=== PATIENT | female | born 1960 | race African-American/Black ===

== ENCOUNTER 2017-02-20 18:15 | Emergency (ER) | payer MEDICARE, OTHER ==
[2017-02-20 18:21] VITALS: BP 136/71; PULSE 70; TEMP 98; BMI 28.7
[2017-02-20] MEDS ORDERED: OXYCODONE/APAP 5/325MG COMBO TABLET PO ONE (18:29)
--- NOTE | 2017-02-20 18:36 | PDOC ---
History of Present Illness - General Chief Complaint: Injury Stated Complaint: RT ANKLE INJURY Time Seen by Provider: 02/20/17 18:29 History Source: Patient Exam Limitations: No Limitations - History of Present Illness Initial Comments: 02/20/17 21:31 My Chief Complaint: fall, rt. ankle pain with swelling, left hip pain History of present illness: Patient is a 56-year-old female with a history of [id number] diabetes, htn, Cardiac d/o, CVA 1999 and asthma. Pt. reports falling on uneven sidewalk twisting her right ankle and falling unto her left hip. She has deformity to her right bilateral ankle and tenderness to her left hip. Patient denies hitting her head or any other injuries. She denies any numbness of her right ankle or foot or leg. Patient has not been able to bear weight on her right foot. Family tried her with crutches was unable to ambulate with crutches. Patient reports that pain currently as a 10 out of 10 sharp in her right ankle and left hip with palpation only. 02/20/17 21:34 02/20/17 21:36 02/20/17 22:28 Occurred: reports: just prior to arrival Severity: reports: severe (rt. ankle) Pain Location: reports: lower extremity (rt. ankle), pelvis (left hip,) Method of Injury: Yes: fall Modifying Factors: improves with: None Loss of Consciousness: no loss of consciousness Associated Symptoms (Fall): trouble walking (cannot ambulate ) Past History - Past Medical History Allergies/Adverse Reactions: Allergies Allergy/AdvReac Type Severity Reaction Status Date / Time No Known Allergies Allergy Verified 02/20/17 18:16 Home Medications: Ambulatory Orders Aspirin [ASA -] 81 mg PO DAILY 03/14/14 Carvedilol [Coreg] 80 mg PO DAILY 03/14/14 Lisinopril [Prinivil -] 20 mg PO DAILY 10/13/14 Rosuvastatin Calcium [Crestor] 20 mg PO DAILY 10/13/14 Cetirizine HCl [Zyrtec -] 10 mg PO DAILY 01/02/16 Gabapentin 300 mg PO TID 01/02/16 Glipizide [Glipizide ER] 5 mg PO TID 01/02/16 Montelukast Na [Singulair -] 10 mg PO HS 01/02/16 Multivitamin [Poly-Vitamin] 1 each PO DAILY 01/02/16 Omeprazole [Prilosec] 40 mg PO DAILY 01/02/16 Meclizine HCl [Antivert -] 25 mg PO TID #30 tablet 01/03/16 Oxycodone HCl/Acetaminophen [Percocet 5-325 mg Tablet] 1 tab PO Q6H PRN #13 tablet MDD 4 02/20/17 Asthma: Yes Cardiac Disorders: Yes CVA: Yes (1999) Diabetes: Yes (NIDDM) HTN: Yes - Surgical History Cardiac Surgery: Yes (CATH WITH STENTS) - Immunization History Immunization Up to Date: Yes - Psycho/Social/Smoking Cessation Hx Anxiety: No Suicidal Ideation: No Smoking History: Never smoked Have you smoked in the past 12 months: No Information on smoking cessation initiated: No Hx Alcohol Use: No Drug/Substance Use Hx: No Substance Use Type: None Review of Systems - Review of Systems Able to Perform ROS?: Yes Constitutional: No: Symptoms Reported HEENTM: No: Symptoms Reported Respiratory: No: Symptoms reported Cardiac (ROS): No: Symptoms Reported ABD/GI: No: Symptoms Reported Musculoskeletal: Yes: Joint Pain (rt. ankle b/l, left hip tenderness), Joint Swelling (rt. ankle b/l, rt. dorsal foot ) Integumentary: No: Symptoms Reported Neurological: No: Symptoms reported *Physical Exam - Vital Signs Last Vital Signs Temp Pulse Resp BP Pulse Ox 98.0 F 70 18 136/71 100 02/20/17 18:18 02/20/17 18:18 02/20/17 18:18 02/20/17 18:18 02/20/17 18:18 - Physical Exam General Appearance: Yes: Appropriately Dressed Neck: negative: Tender, Decreased range of motion, Lymphadenopathy (R), Lymphadenopathy (L), Rigidity, Tender lateral, Tender midline Respiratory/Chest: positive: Lungs Clear, Normal Breath Sounds. negative: Chest Tender, Respiratory Distress Cardiovascular: positive: Regular Rhythm, Regular Rate, S1, S2 Vascular Pulses: Dorsalis-Pedis (R): 4+ Musculoskeletal: positive: Normal Inspection, Other (left hip tenderness). negative: CVA Tenderness, CVA Tenderness (R), CVA Tenderness (L), Decreased Range of Motion, Vertebral Tenderness Extremity: positive: Normal Capillary Refill, Tender (rt. ankle lateral and medially ), Swelling (right lateral/medial ankle, dorsal foot ) Integumentary: positive: Normal Color, Swelling (rt.dorsal foot/ rt. ankle b/l ) Neurologic: positive: Alert, Normal Response, Respond to painful stimul (b/l lower extremities, rt. foot/ankle ), Responsive. negative: Sensory Deficit ( rt. ankle/foot ) Deep Tendon Reflexes: Ankle (R): 3+ (no induration ) Procedures - Consent Consent obtained: From Patient - Splinting Splint Location: Right: Foot, Ankle Pre-Proc Neuro Vasc Exam: normal Splint Type: Yes: Sugar Tong (rt. ), Posterior (rt. ) Post-Proc Neuro Vasc Exam: normal Hayder Bandage: 4" Complications: No Post splint xray: No Progress: 02/20/17 22:29 crutches given Medical Decision Making - Medical Decision Making 02/20/17 21:36 Pt. reports falling on uneven sidewalk twisting her right ankle and falling unto her left hip. She has deformity to her right bilateral ankle and tenderness to her left hip. Patient denies hitting her head or any other injuries. She denies numbness of her right ankle or foot or leg. Patient has not been able to bear weight on her right foot. Family tried her with crutches was unable to ambulate with crutches. Patient reports that pain currently as a 10 out of 10 sharp in her right ankle and left hip with palpation only. Fall R/O fracture rt. ankle/foot R/O fracture left hip PLAN: percocet 5mg/325 mg po now than every 6 hrs prn pain # 14 xray left hip no fracture per Dr. Gill xray right ankle foot fracture through the lateral malleolus as well as a nondisplaced fracture through the medial malleolus. Extensive soft tissue swelling is noted about the ankle per Dr. Gill Ortho consult said to put on a posterior and sugar tong orthoglass splint and have patient follow-up with him in office next week Right lower extremity posterior splint and sugar tong splint applied or with Ortho-Glass Is able to ambulate on crutches after with instructions 02/20/17 22:24 02/20/17 22:29 02/20/17 22:29 *DC/Admit/Observation/Transfer Diagnosis at time of Disposition: Hip pain, left Bimalleolar fracture of right ankle Qualifiers: Encounter type: initial encounter Fracture type: closed Qualified Code(s): S82.841A - Displaced bimalleolar fracture of right lower leg, initial encounter for closed fracture Fall Qualifiers: Encounter type: initial encounter Qualified Code(s): W19.XXXA - Unspecified fall, initial encounter - Discharge Dispostion Disposition: HOME Condition at time of disposition: Stable - Prescriptions Prescriptions: Oxycodone HCl/Acetaminophen [Percocet 5-325 mg Tablet] 1 tab PO Q6H PRN #13 tablet MDD 4 PRN Reason: Severe Pain - Referrals Referrals: Erin Richard [Primary Care Provider] - Srikanth Parikh MD [Staff Physician] - - Patient Instructions Additional Instructions: Follow up with orthopedist on 02/24/17, call at 8am tell them that Dr. Parikh recommended follow up there ELEVATE RIGHT LEG APPLY ICE EVERY 2 HOURS WHILE AWAKE TODAY AND TOMORROW DO NOT REMOVE ORTHOGLASS SPLINT AND USE CRUTCHES FOR AMBULATION, DO NOT PUT WEIGHT ON RT FOOT RETURN TO EMERGENCY ROOM IF ANY NUMBNESS OF RIGHT LEG, FOOT, ANKLE PATIENT VOICED UNDERSTANDING OF DISCHARGE INSTRUCTIONS AND ALL QUESTIONS WERE ANSWERED
== END 2017-02-20 22:26 | disposition home or self-care (01) ==
LOC: JERFT 18:15
PROC: 2W3LX1Z Immobilization of Right Lower Extremity using Splint (ICD-10-PCS; principal; 2017-02-20)
DX: S82.841A Displaced bimalleolar fracture of right lower leg, initial encounter for closed fracture (principal); W18.39XA Other fall on same level, initial encounter; Y93.01 Activity, walking, marching and hiking; Y92.480 Sidewalk as the place of occurrence of the external cause; Y99.8 Other external cause status; I25.10 Atherosclerotic heart disease of native coronary artery without angina pectoris; I10 Essential (primary) hypertension; Z95.5 Presence of coronary angioplasty implant and graft; E11.9 Type 2 diabetes mellitus without complications; Z79.84 Long term (current) use of oral hypoglycemic drugs; J45.909 Unspecified asthma, uncomplicated; Z86.73 Personal history of transient ischemic attack (TIA), and cerebral infarction without residual deficits
CPT/HCPCS: 29515; 73523-TC; 73590-TC-RT; 73610-TC-RT; 73630-TC-RT; 99281-25

== ENCOUNTER 2017-03-19 08:24 | Day surgery (SDC) | payer MEDICARE, OTHER ==
[2017-03-09 13:08] VITALS: BMI 28.9
[2017-03-19] MEDS ORDERED: ROPIVACAINE HCL 0.5% 30ML VIAL ONE (11:22)
[2017-03-19] MEDS ORDERED: MIDAZOLAM HCL 2 MG/2 ML SINGLE DOSE VIAL ONE ×2 (11:22→12:21)
[2017-03-19] MEDS ORDERED: ceFAZolin SODIUM 1 GM VIAL ONE (12:23)
[2017-03-19] MEDS ORDERED: PROPOFOL 20 ML ONE ×3 (12:33)
[2017-03-19] MEDS ORDERED: LIDOCAINE HCL 1%, 10 MG/ML (20ML VIAL) ONE (12:47)
[2017-03-19] MEDS ORDERED: ONDANSETRON 4 MG/2 ML VIAL IVPUSH PRN (14:19)
[2017-03-19] MEDS ORDERED: oxyCODONE HCL 5 MG TABLET PO PRN (14:19)
--- NOTE | 2017-03-19 15:01 | OP ---
DATE OF OPERATION: 03/19/2017 PREOPERATIVE DIAGNOSIS: Right unstable ankle fracture. POSTOPERATIVE DIAGNOSIS: Right unstable ankle fracture. PROCEDURE: Right ankle open reduction and internal fixation. SURGEON: Srikanth Parikh MD STATISTICS TUTOR: HAI Nguyen, whose skillful assistance was necessary for the safe and timely performance of this procedure. Ms. Monsivais was able to help provide limb positioning, retraction, assist in fracture reduction as well as fracture fixation. This was all while the surgical dental assistant was providing the hardware necessary for completing the case, as well as manipulating instruments. IMPLANTS: Arthrex distal fibular plate with associated 3.5-mm locking as well as cortical screws as well as 2.7-mm locking screws. One Arthrex TightRope as well. ANESTHESIA TYPE: Regional plus sedation. TOURNIQUET TIME: 56 minutes. POSTOPERATIVE CONDITION: Stable. INDICATIONS: This is a pleasant 56-year-old female who suffered injury to her right ankle. She was found to have an unstable ankle fracture in the office. Treatment options including nonoperative management were discussed. We discussed that nonoperative management is not recommended in this case as the fracture is unstable, mainly due to posttraumatic arthrosis. Alternatively, we discussed operative management. We discussed risks including bleeding, infection, neurovascular injury, need for further surgery, postoperative pain and stiffness, nonunion, malunion, hardware failure cutout. We discussed there is still a chance for posttraumatic arthrosis but it is much less with an anatomic reduction. We reviewed medical risks such as heart attack, stroke, DVT, PE, and . We discussed the postoperative recovery and postoperative limitations. I addressed all the patient's questions. She voiced understanding and elected to proceed. PROCEDURE: The patient was brought to the operating room, where she was placed supine on the operating room stable. She had been given a preoperative block in the holding area. The right lower extremity was then prepped and draped in the usual sterile fashion. A preoperative dose of antibiotics was given and the usual timeout procedure was performed. At this point the limb was exsanguinated, tourniquet was inflated to 250 mmHg. The area of the incision was then injected with 10 mL of 1% lidocaine. The incision was then carried down through skin and subcutaneous tissue. Blunt spreading was used to expose the bone. The fracture site was now identified. Any callus which had formed was debrided. The fracture was mobilized from the soft tissue. A reduction clamp was applied; however, the reduction clamp started to crack through the cortex of the bone. A decision was made to use the plate to reduce the fracture. The plate was affixed to the distal fragment. This was done using 2.7 locking screws. The plate was then reduced up to the shaft proximally and this was affixed using combination of locking and nonlocking screws, utilizing a 4-0 cancellous screw for the 1st screw plate down followed by locking screws. At this point the entire construct was examined both fluoroscopically and visually, and both fracture reduction and hardware placement were satisfactory. There was, however, persistent widening of the mortise. Given the widening of the mortise, it was decided to perform syndesmotic fixation. The 4-0 cancellous screw was now removed. The 2.7-mm drill was now passed through the plate, through the fibula, and then through the tibia, emerging anteromedially. The drill was now withdrawn. The TightRope device was now passed and then toggled onto the medial cortex. It was then tightened down, securing it along the plate as well. External rotation stress performed after TightRope fixation demonstrated the mortise was now stable. The wound was irrigated at this point. The deep tissues were approximated using 0 Vicryl. The subcutaneous tissue was approximated using 2-0 Vicryl. The skin was closed using 2-0 nylon vertical mattress sutures. Sterile dressings were placed. The tourniquet was let down at 56 minutes. The patient was transferred to the recovery room in stable condition. Dorina FAROOQ/[id number]
[2017-03-19] MEDS ORDERED: oxyCODONE HCL 5 MG TABLET ONE (16:51)
[2017-03-19 19:53] VITALS: BP 124/74; PULSE 78; TEMP 98.1
== END 2017-03-19 18:20 | disposition home or self-care (01) ==
LOC: FASU 08:24
PROVIDERS: ATTEND Orthopaedic Surgery Sports Medicine
PROC: 0QSG04Z Reposition Right Tibia with Internal Fixation Device, Open Approach (ICD-10-PCS; principal; 2017-03-19 12:40)
DX: S82.841A Displaced bimalleolar fracture of right lower leg, initial encounter for closed fracture (principal); X58.XXXA Exposure to other specified factors, initial encounter; Y93.9 Activity, unspecified; Y92.9 Unspecified place or not applicable
CPT/HCPCS: 73610-TC-RT; 76001-TC; 94760

== ENCOUNTER 2017-04-21 09:50 | Inpatient (IN) | payer MEDICARE, OTHER ==
--- NOTE | 2017-04-21 10:00 | PDOC ---
History of Present Illness <Juan Dwyer - Last Filed: 04/21/17 14:42> - General History Source: Patient Exam Limitations: No Limitations - History of Present Illness Initial Comments: 04/21/17 11:03 The patient is a 56 year old female with a PMHx of right ankle ORIF (03/19), CVA , CHF, NIDDM, GERD, HTN, hypercholesterolemia, asthma who presents to the ED with left groin and flank pain for 2 days. The patient states the pain radiates down her left thigh. She reports the pain is constant and sharp in nature. She reports the pain is exacerbated by breathing and moving. She took codeine today that was prescribed for her right ankle ORIF to relieve her pain with minimal relief. She denies similar symptoms before today. She denies chest pain, SOB, palpitations. She denies abdominal pain, nausea, vomiting, diarrhea, constipation. She denies any recent falls, swelling. <Juliann Viera - Last Filed: 04/21/17 15:02> - General Stated Complaint: PAIN Time Seen by Provider: 04/21/17 09:59 Past History - Past Medical History Anemia: No Asthma: Yes Cancer: No Cardiac Disorders: Yes CVA: Yes (1999) COPD: No CHF: Yes (1999) Dementia: No Diabetes: Yes (NIDDM/2011) GI Disorders: Yes (GERD) Disorders: No HTN: Yes Hypercholesterolemia: Yes Liver Disease: No Seizures: No Thyroid Disease: No - Surgical History Abdominal Surgery: No Appendectomy: No Cardiac Surgery: Yes (CATHERIZATION WITH STENTS) Cholecystectomy: No Lung Surgery: No Neurologic Surgery: No Orthopedic Surgery: No - Immunization History Immunization Up to Date: Yes - Psycho/Social/Smoking Cessation Hx Anxiety: No Suicidal Ideation: No Smoking History: Never smoked Have you smoked in the past 12 months: No Hx Alcohol Use: No Drug/Substance Use Hx: No Substance Use Type: None Hx Substance Use Treatment: No <Juan Dwyer - Last Filed: 04/21/17 14:42> <Juliann Viera - Last Filed: 04/21/17 15:02> - Past Medical History Allergies/Adverse Reactions: Allergies Allergy/AdvReac Type Severity Reaction Status Date / Time No Known Allergies Allergy Verified 04/21/17 10:15 Home Medications: Ambulatory Orders Aspirin [ASA -] 81 mg PO DAILY 03/14/14 Lisinopril [Prinivil -] 20 mg PO DAILY 10/13/14 Rosuvastatin Calcium [Crestor] 20 mg PO DAILY 10/13/14 Gabapentin 300 mg PO TID 01/02/16 Glipizide [Glipizide ER] 10 mg PO BID 01/02/16 Montelukast Na [Singulair -] 10 mg PO HS 01/02/16 Multivitamin [Poly-Vitamin] 1 each PO DAILY 01/02/16 Omeprazole [Prilosec] 40 mg PO DAILY 01/02/16 Oxycodone HCl/Acetaminophen [Percocet 5-325 mg Tablet] 1 tab PO Q6H PRN #13 tablet MDD 4 02/20/17 Carvedilol [Coreg -] 12.5 mg PO DAILY 03/09/17 Insulin Glargine,Hum.rec.anlog [Lantus Solostar PEN (NF)] 20 units SQ HS Meclizine HCl [Antivert -] 25 mg PO TID PRN 03/09/17 Salmeterol/Fluticasone [Advair 250Mcg/50Mcg] 1 inh PO BID 03/09/17 Review of Systems - Review of Systems Constitutional: No: Chills, Fever, Night Sweats Respiratory: No: Cough, Shortness of Breath Cardiac (ROS): No: Chest Pain, Lightheadedness, Palpitations ABD/GI: Yes: Constipated. No: Diarrhea, Nausea, Vomiting : Yes: Flank Pain. No: Hematuria Musculoskeletal: Yes: Back Pain, Muscle Pain Neurological: No: Weakness All Other Systems: Reviewed and Negative <Juan Dwyer - Last Filed: 04/21/17 14:42> *Physical Exam - Vital Signs Last Vital Signs Temp Pulse Resp BP Pulse Ox 97.9 F 75 16 163/78 100 04/21/17 09:50 04/21/17 09:50 04/21/17 09:50 04/21/17 09:50 04/21/17 09:50 - Physical Exam Comments: 04/21/17 11:04 GENERAL: The patient is awake, alert, and fully oriented. HEAD: Normal with no signs of trauma. EYES: Pupils equal, round and reactive to light, extraocular movements intact, sclera anicteric, conjunctiva clear with no pallor. ENT: Ears normal, nares patent, oropharynx clear without exudates. Moist mucous membranes. NECK: Normal range of motion, supple without lymphadenopathy, JVD, or masses. LUNGS: Breath sounds equal, clear to auscultation bilaterally. No wheeze/ crackles. HEART: Regular rate and rhythm, normal S1 and S2 without murmur or rub. ABDOMEN: Tender across the left abdomen. Soft/nondistended. BS wnl. No guarding or rebound. No palpable masses. No hepatosplenomegaly. BACK: Exquisite left CVA tenderness. Exquisite tenderness from the midline thoracic to lumbar region. EXTREMITIES: Discomfort across the left thigh. No erythema or warmth to the left thigh. No edema. No clubbing or cyanosis. Strength is limited secondary to pain, but there is full passive ROM. No isolated joint effusion. Neurovascularly intact. NEUROLOGICAL: Cranial nerves II through XII grossly intact. Normal speech, normal gait. PSYCH: Normal mood, normal affect. SKIN: Warm, Dry, normal turgor, no rashes or lesions noted. GROIN: No palpable hernia. <Juliann Viera - Last Filed: 04/21/17 15:02> Heart Score/ECG Review #1 ECG reviewed & interpreted by me at: 11:38 General ECG Interpretation: Sinus Rhythm (with APCs), Normal Rate (66), Normal Intervals (qtc 436), No acute ischemic changes (inverted T waves inferior leads , TWI w/ sub-mm STD lateral V4-V6.) Compared to previous ECG there are: Changes noted (inferior TWI unchanged, but precordial TWI more pronounced c/w 01/02/16) <Juan Dwyer - Last Filed: 04/21/17 14:42> ED Treatment Course - LABORATORY CBC & Chemistry Diagram: 04/21/17 11:10 04/21/17 11:10 <Juan Dwyer - Last Filed: 04/21/17 14:42> - LABORATORY CBC & Chemistry Diagram: 04/21/17 11:10 04/21/17 11:10 - RADIOLOGY Radiograph Interpretation: 04/21/17 14:10 Chest CTA Reported by Dr. Harjeet Godwin Impression: No evidence of PE. Dependent atelectasis at the left base with interstitial stranding within the lateral aspect of the right base. Nodularity of the left lobe of the thyroid gland, consider nonemergent ultrasound imaging. 04/21/17 15:02 Duplex Vascular - [address] Radha Judd Impression: No DVT seen in the lower extremities. <Juliann Viera - Last Filed: 04/21/17 15:02> Medical Decision Making - Medical Decision Making 04/21/17 11:28 A portion of this note was documented by scribe services under my direction. I have reviewed the details of the note, within reason, and agree with the documentation with the following case summary and management plan written by me. 56-year-old female with history of hypertension, status post right ankle ORIF on 03/19 presents with 2 days of progressive and severe left back pain that radiates to the left leg. No recent falls or injuries aside from the initial ankle fracture, states the pain is worse with positional changes and deep inspiration, denies any leg numbness or weakness. Reports occasional but partial urinary incontinence, denies any hematuria or dysuria or frequency. No cough or fevers or chills, no chest pain or palpitations. Was taking the Percocet that was prescribed to her for her ankle injury only slight relief until this morning, when the pain became so severe that she presented to the emergency department. vital signs within normal limits. Alert but in moderate distress, particularly with any movement Heart and lungs are normal Exquisite midline and left back tenderness without overlying cellulitis or rash or ecchymosis, the abdomen is benign but there is some discomfort in the left groin and some limited active range of motion of the left leg secondary to pain , normal passive range of motion. Neurovascular intact otherwise. 56-year-old female with severe progressive left back pain that radiating to her left leg. Question radiculopathy, but some concern for other primary source in the spine such as infection or fracture given the focal tenderness. She did have a nerve block during her procedure, but presumably peripheral nerve and not spinal? labs, ua will need spine imaging, CT T+L spine with contrast pain control r/o dvt given leg pain and recent surgery though no edema reassess 04/21/17 12:23 labs wnl, no leukocytosis, trop negative. + ddimer, so will check CTA chest. Awaiting CT imaging and doppler, will dispo accordingly. 04/21/17 14:18 CTA chest without acute pathology, no PE. Doppler read still pending, radiology called. Pt with slightly improved pain but still limited ROM LLE, + back ttp. Given intractable back pain and limited mobility, will need pain control and further imaging. Spine imaging changed to MRI, scheduled for this evening. Will likely need PT services as she has been confined to wheelchair in light of this pain and her recent ORIF. Pt of Dr. Richard, will admit to [facility] shank boner. 04/21/17 14:42 Accepted for obs med/surg by Dr. Her, signout given to Dr. Roth. <uJan Dwyer - Last Filed: 04/21/17 14:42> *DC/Admit/Observation/Transfer - Discharge Dispostion Admit: Yes <Juan Dwyer - Last Filed: 04/21/17 14:42> - Attestations Scribe Attestion: 04/21/17 11:05 Documentation prepared by Juliann Viera, acting as medical typist for Juan Dwyer MD. <Juliann Viera - Last Filed: 04/21/17 15:02> Diagnosis at time of Disposition: Lumbar radiculopathy Left-sided back pain Qualifiers: Back pain location: thoracic back pain Chronicity: acute Qualified Code(s): M54.6 - Pain in thoracic spine - Discharge Dispostion Condition at time of disposition: Fair - Referrals Referrals: Erin Richard [Primary Care Provider] -
[2017-04-21] MEDS ORDERED: morphine CARPU-JECT 4 MG/1 ML DISP.SYRIN IVPUSH ONE (10:57)
[2017-04-21] MEDS ORDERED: ONDANSETRON 4 MG/2 ML VIAL IVPUSH ONE (10:57)
[2017-04-21] MEDS ORDERED: morphine CARPU-JECT 4 MG/1 ML DISP.SYRIN ONE (11:01)
[2017-04-21] MEDS ORDERED: ONDANSETRON 4 MG/2 ML VIAL ONE (11:01)
[2017-04-21 11:24] LABS: BASOPHIL 0.9 % (0-2.0); EOSINOPHIL 1.8 % (0-4.5); MCH 26.8 pg (25.7-33.7); MCHC 32.8 g/dl (32.0-36.0); MEAN CELL VOLUME 81.6 fl (80-96); MEAN PLT VOLUME 9.7 fl (7.5-11.1); NEUTROPHILS 55.7 % (42.8-82.8); PLATELET COUNT 182 K/MM3 (134-434); RDW 14.6 % (11.6-15.6); WHITE BLOOD COUNT 7.1 K/mm3 (4.0-10.0)
[2017-04-21 11:37] LABS: INR 0.98 (0.82-1.09); PROTHROMBIN TIME (PATIENT) 10.8 SEC (9.98-11.88)
[2017-04-21 11:51] LABS: ALBUMIN 3.7 g/dl (3.4-5.0); ANION GAP 7 (8-16); BILIRUBIN,TOTAL 0.6 mg/dL (0.2-1.0); CALCIUM 9.3 mg/dL (8.5-10.1); CO2 32 mmol/L (21-32); CREATININE 0.8 mg/dL (0.55-1.02); GLUCOSE,RANDOM 285 mg/dL (74-106); MAGNESIUM 1.9 mg/dL (1.8-2.4); SGOT/AST 21 U/L (15-37); SGPT/ALT 28 U/L (12-78)
[2017-04-21 11:54] LABS: ALK PHOS 125 U/L (45-117); TROPONIN I < 0.02 ng/ml (0.00-0.05)
[2017-04-21] MEDS ORDERED: SODIUM CHLORIDE 1,000 ML IV ONE (12:24)
--- NOTE | 2017-04-21 13:43 | EKG ---
Test Reason : Blood Pressure : / mmHG Vent. Rate : 066 BPM Atrial Rate : 066 BPM P-R Int : 142 ms QRS Dur : 088 ms QT Int : 416 ms P-R-T Axes : 054 005 -47 degrees QTc Int : 436 ms SINUS RHYTHM WITH ATRIAL PREMATURE BEATS MODERATE VOLTAGE CRITERIA FOR LVH, MAY BE NORMAL VARIANT DIFFUSE ST-T ABNORMALITIES ABNORMAL ECG WHEN COMPARED WITH ECG OF 02-JAN-2016 22:18, ST-T ABNORMALITIES ARE MORE PRONOUNCED IN BOTH LIMB AND PRECORDIAL LEADS VENT. RATE REPEAT INDICATED Confirmed by DUANE CONNELLY MD ([id number]) on 04/21/2017 1:43:37 PM Referred By: Confirmed By:DUANE CONNELLY MD
[2017-04-21 16:01] LABS: URINE APPEARANCE CLEAR; URINE BILIRUBIN NEGATIVE (NEGATIVE); URINE BLOOD 1+ (NEGATIVE); URINE COLOR LTYELLOW; URINE GLUCOSE (UA) 3+ (NEGATIVE); URINE KETONE NEGATIVE (NEGATIVE); URINE NITRITE NEGATIVE (NEGATIVE); URINE PROTEIN NEGATIVE (NEGATIVE); URINE UROBILINOGEN NEGATIVE mg/dL (0.2-1.0)
[2017-04-21 16:10] LABS: URINE LEUK ESTERASE 1+ (NEGATIVE)
[2017-04-21 16:42] VITALS: BMI 12.4
--- NOTE | 2017-04-21 16:51 | PN ---
Teaching Attending Note Name of Resident: Douglas Roth ATTENDING PHYSICIAN STATEMENT I saw and evaluated the patient. I reviewed the resident's note and discussed the case with the resident. I agree with the resident's findings and plan as documented. SUBJECTIVE: Patient came in to ED.with progressive low back with radiation to right lower extremity.No fever or chills. had a recent RLE sx otherwise no symtoms. OBJECTIVE: Vital Signs Temperature 97.9 F 04/21/17 09:50 Pulse Rate 65 04/21/17 16:00 Respiratory Rate 18 04/21/17 16:00 Blood Pressure 139/74 04/21/17 16:00 O2 Sat by Pulse Oximetry (%) 95 04/21/17 16:00 CBCD WBC 7.1 K/mm3 (4.0-10.0) 04/21/17 11:10 RBC 4.52 M/mm3 (3.60-5.2) 04/21/17 11:10 Hgb 12.1 GM/dL (10.7-15.3) 04/21/17 11:10 Hct 36.9 % (32.4-45.2) 04/21/17 11:10 MCV 81.6 fl (80-96) 04/21/17 11:10 MCHC 32.8 g/dl (32.0-36.0) 04/21/17 11:10 RDW 14.6 % (11.6-15.6) 04/21/17 11:10 Plt Count 182 K/MM3 (134-434) 04/21/17 11:10 MPV 9.7 fl (7.5-11.1) 04/21/17 11:10 CMP Sodium 137 mmol/L (136-145) 04/21/17 11:10 Potassium 4.1 mmol/L (3.5-5.1) 04/21/17 11:10 Chloride 98 mmol/L (98-107) 04/21/17 11:10 Carbon Dioxide 32 mmol/L (21-32) 04/21/17 11:10 Anion Gap 7 (8-16) L 04/21/17 11:10 BUN 9 mg/dL (7-18) 04/21/17 11:10 Creatinine 0.8 mg/dL (0.55-1.02) 04/21/17 11:10 Creat Clearance w eGFR > 60 (>60) 04/21/17 11:10 Random Glucose 285 mg/dL (74-106) H D 04/21/17 11:10 Calcium 9.3 mg/dL (8.5-10.1) 04/21/17 11:10 Total Bilirubin 0.6 mg/dL (0.2-1.0) 04/21/17 11:10 AST 21 U/L (15-37) 04/21/17 11:10 ALT 28 U/L (12-78) D 04/21/17 11:10 Alkaline Phosphatase 125 U/L (45-117) H 04/21/17 11:10 Total Protein 8.0 g/dl (6.4-8.2) 04/21/17 11:10 Albumin 3.7 g/dl (3.4-5.0) 04/21/17 11:10 CARDIAC ENZYMES Creatine Kinase 118 IU/L (26-192) 04/21/17 11:10 Troponin I < 0.02 ng/ml (0.00-0.05) 04/21/17 11:10 Home Medications Medication Instructions Recorded Aspirin [ASA -] 81 mg PO DAILY 03/14/14 Lisinopril [Prinivil -] 20 mg PO DAILY 10/13/14 Rosuvastatin Calcium [Crestor] 20 mg PO HS 10/13/14 Gabapentin 300 mg PO TID 01/02/16 Omeprazole [Prilosec] 40 mg PO DAILY 01/02/16 Oxycodone HCl/Acetaminophen 1 tab PO Q6H PRN #13 tablet MDD 4 02/20/17 [Percocet 5-325 mg Tablet] Carvedilol [Coreg -] 12.5 mg PO BID 03/09/17 Insulin Glargine,Hum.rec.anlog 25 units SQ HS 03/09/17 [Lantus Solostar PEN (NF)] Salmeterol/Fluticasone [Advair 1 puff IH Q12H 04/21/17 500Mcg/50Mcg -] PE: RLE in the cast rest of PE per Resident's note ASSESSMENT AND PLAN: 56F with multiple medical problems presents to the ED with intractable back radiating to her right lower extremity x 3 days with worsening symptoms today. # Acute back pain can't r/o radiculopathy/siatica vs spinal abscess will get MRI of lower back . Pain control # Acute UTI Rocephin IV will start # recent surgery of right lower ankle s/p fall # Hx of CVA with left sided residual weakness # Hx of CHF/T2dm/GERD/HTN/COPD:continue home meds DVT PPx-Heparin sq.
--- NOTE | 2017-04-21 16:53 | HP ---
CHIEF COMPLAINT: Left back pain PCP: Dr. Erin Richard HISTORY OF PRESENT ILLNESS: 56 y/o F w/ PMH right ankle ORIF (03/19), CVA (with residual Left sided deficit) , CHF, NIDDM, GERD, HTN, hypercholesterolemia, asthma who presents to the ED with left groin and flank pain for 2 days. Pain was progressively increasing until it was 10/10 at which point she came to the ED. The pain begins in the left posterior flank and radiates to the left groin and down the lateral aspect of the left leg. It is associated with tingling in the left toes. Pain is exacerbated with movement particularly of the trunk. Pt denies pain on urination , but admits to pain during bowel movements. Pt has had incontinence. ER course was notable for: (1) labs notable for D-Dimer: 341, random glucose 285, Alk Phos 125, UA: glucose 3+ / urine blood 1+ / LE 1+ / WBC 13 (2) Chest CTA neg for PE, vascular study neg for DVT, EKG: Sinus with PACs, LVH , Lateral T wave inversions (3) pt received Morphine, NS, Zofran Recent Travel: Denies PAST MEDICAL HISTORY: right ankle ORIF (03/19), CVA (with residual Left sided deficit), CHF, NIDDM, GERD, HTN, hypercholesterolemia, asthma PAST SURGICAL HISTORY: Social History: Smoking:Denies Alcohol: Denies Drugs: Denies Family History: Denies Allergies No Known Allergies Allergy (Verified 04/21/17 10:15) HOME MEDICATIONS: Home Medications Medication Instructions Recorded Aspirin [ASA -] 81 mg PO DAILY 03/14/14 Lisinopril [Prinivil -] 20 mg PO DAILY 10/13/14 Rosuvastatin Calcium [Crestor] 20 mg PO HS 10/13/14 Gabapentin 300 mg PO TID 01/02/16 Omeprazole [Prilosec] 40 mg PO DAILY 01/02/16 Oxycodone HCl/Acetaminophen 1 tab PO Q6H PRN #13 tablet MDD 4 02/20/17 [Percocet 5-325 mg Tablet] Carvedilol [Coreg -] 12.5 mg PO BID 03/09/17 Insulin Glargine,Hum.rec.anlog 25 units SQ HS 03/09/17 [Lantus Solostar PEN (NF)] Salmeterol/Fluticasone [Advair 1 puff IH Q12H 04/21/17 500Mcg/50Mcg -] REVIEW OF SYSTEMS CONSTITUTIONAL: Absent: fever, chills, diaphoresis, generalized weakness, malaise, loss of appetite, weight change HEENT: Absent: rhinorrhea, nasal congestion, throat pain, throat swelling, difficulty swallowing, mouth swelling, ear pain, eye pain, visual changes CARDIOVASCULAR: Absent: chest pain, syncope, palpitations, irregular heart rate, lightheadedness , peripheral edema RESPIRATORY: Absent: cough, shortness of breath, dyspnea with exertion, orthopnea, wheezing, stridor, hemoptysis GASTROINTESTINAL: Absent: abdominal pain, abdominal distension, nausea, vomiting, diarrhea, constipation, melena, hematochezia GENITOURINARY: Absent: dysuria, frequency, urgency, hesitancy, hematuria, flank pain, genital pain MUSCULOSKELETAL: back pain Absent: myalgia, arthralgia, joint swelling, , neck pain SKIN: Absent: rash, itching, pallor HEMATOLOGIC/IMMUNOLOGIC: Absent: easy bleeding, easy bruising, lymphadenopathy, frequent infections ENDOCRINE: Absent: unexplained weight gain, unexplained weight loss, heat intolerance, cold intolerance NEUROLOGIC: Absent: headache, focal weakness or paresthesias, dizziness, unsteady gait, seizure, mental status changes, bladder or bowel incontinence PSYCHIATRIC: Absent: anxiety, depression, suicidal or homicidal ideation, hallucinations. PHYSICAL EXAMINATION Vital Signs - 24 hr 04/21/17 16:00 Pulse Rate 65 Respiratory 18 Rate Blood Pressure 139/74 O2 Sat by Pulse 95 Oximetry (%) GENERAL: Awake, alert, and fully oriented, in no acute distress. HEAD: Normal with no signs of trauma. EYES: Pupils equal, round and reactive to light, extraocular movements intact, sclera anicteric, conjunctiva clear. No lid lag. EARS, NOSE, THROAT: oropharynx clear without exudates. Moist mucous membranes. NECK: Normal range of motion, supple without lymphadenopathy, JVD, or masses. LUNGS: Breath sounds equal, clear to auscultation bilaterally. No wheezes, and no crackles. No accessory muscle use. HEART: Regular rate and rhythm, normal S1 and S2 without murmur, rub or gallop. ABDOMEN: Very tender to palpation of the left flank. Soft, nontender, not distended, normoactive bowel sounds, no guarding, no rebound, no masses. No hepatomegaly or splenomegaly. MUSCULOSKELETAL: Normal range of motion at all joints. No bony deformities or tenderness. No CVA tenderness. UPPER EXTREMITIES: 2+ pulses, warm, well-perfused. No cyanosis. No clubbing. No peripheral edema. LOWER EXTREMITIES: 2+ pulses, warm, well-perfused. No calf tenderness. No peripheral edema. NEUROLOGICAL: Cranial nerves II-XII intact. Normal speech. Normal gait. muscle strength 5/5 on the right. 3/5 of the left. shoulder abduction, elbow flexion/ extension, filterer, hip flexion. knee flexion/extension deferred due to pain from prior R ankle fracture. Reflexes 2+ right 1+ left biceps, brachioradialis, patellar. Sensation diminished along the left side of the body. face sensation intact b/l. PSYCHIATRIC: Cooperative. Good eye contact. Appropriate mood and affect. SKIN: Warm, dry, normal turgor, no rashes or lesions noted, normal capillary refill. Laboratory Results - last 24 hr 04/21/17 15:06 Urine Color Ltyellow Urine Appearance Clear Urine pH 5.0 Urine Protein Negative Urine Glucose (UA) 3+ H Urine Ketones Negative Urine Blood 1+ H Urine Nitrite Negative Urine Bilirubin Negative Urine Urobilinogen Negative Ur Leukocyte Esterase 1+ H ASSESSMENT/PLAN: 56 y/o F w/ PMH right ankle ORIF (03/19), CVA (with residual Left sided deficit) , CHF, NIDDM, GERD, HTN, hypercholesterolemia, asthma who presents to the ED with left groin and flank pain for 2 days admitted to Obs to r/o possible spinal abscess or radiculopathy #Back Pain -severe L flank / lower back pain with radiation to the left groin and left leg -abscess unlikely in setting of nl WBCs, afebrile -Morphine 2mg IV push Q4 PRN -Tylenol 650mg PO Q4 PRN -f/u L spine and T spine MRI #Prior CVA with residual L weakness - Continue Gabapentin 300mg PO BID #CHF -Lisinopril 20mg PO BID #DM -Novolog ISS -Levemir 25u SubQ HS -DM diet -BGM #GERD -Protonix 40mg PO Daily #HTN -Lisinopril -Coreg 12.5mg PO BID #HLD -Crestor 20mg PO HS -ASA 81mg PO daily #Asthma/COPD -Albuterol 2 puff Q4 PRN -Symbicort -O2 #UTI -incontinence -UA: glucose 3+ / urine blood 1+ / LE 1+ / WBC 13 -Rocephin 1gm IVPB daily -f/u UCx #FEN -NS@1000 -f/u lytes -DM diet #PPx -DVT: HSQ -GI: Protonix -Deconditioning: ambulation #Dispo -Obs Agustín Castro MD PGY-1 Visit type - Emergency Visit Emergency Visit: Yes ED Registration Date: 04/21/17 Care time: The patient presented to the Emergency Department on the above date and was hospitalized for further evaluation of their emergent condition. - New Patient This patient is new to me today: No - Critical Care Critical Care patient: No
[2017-04-21] MEDS ORDERED: morphine CARPU-JECT 2 MG/1 ML DISP.SYRIN IVPUSH PRN (17:01)
[2017-04-21] MEDS ORDERED: ACETAMINOPHEN 325 MG TABLET (FP) PO PRN (17:01)
[2017-04-21] MEDS ORDERED: ALBUTEROL SO4 6.7 GM HFA INHALER IH PRN (17:12)
--- NOTE | 2017-04-21 17:13 | HP ---
Admitting History and Physical - Primary Care Physician PCP: Erin Richard - Admission Chief Complaint: Back and leg pain History of Present Illness: 56F PMHx of right ankle ORIF (03/19), CVA, CHF, NIDDM, GERD, HTN, hld, asthma/ COPD who presents to the ED with left groin and flank pain for 2 days. The patient states the pain radiates down her left thigh. She reports the pain is constant and sharp in nature. She reports the pain is exacerbated by breathing and moving. The only thing that makes the pain bearable is staying still. She took percocet today that was prescribed for her right ankle ORIF to relieve her pain with minimal relief. She denies similar symptoms before 2 days ago. She denies chest pain, SOB, palpitations. She denies abdominal pain, nausea, vomiting, diarrhea, constipation. She denies any recent falls, swelling. She states she at times feels hot and cold. She states she has some left sided weakness which is chronic from a prior CVA. Patient had CTA chest in ED to rule out PE which was negative also had duplex of LE which was negative. Patient for MRI of L&S spine. Patient has been in bed and a wheel chair and has not been ambulating very much since her right ankle surgery. She was able to ambulate fine prior to surgery. Patient has been having urinary incontinence for the past few months. History Source: Patient, Medical Record Limitations to Obtaining History: Clinical Condition - Past Medical History Additional Past Medical History: CVA, CHF, NIDDM, GERD, HTN, hld, asthma/COPD - Past Surgical History Additional Past Surgical History: ORIF right ankle fibroid removal Cardiac cath-denies stents - Smoking History Smoking history: Never smoked Have you smoked in the past 12 months: No - Alcohol/Substance Use Hx Alcohol Use: No History of Substance Use: reports: None Home Medications - Allergies Allergies/Adverse Reactions: Allergies Allergy/AdvReac Type Severity Reaction Status Date / Time No Known Allergies Allergy Verified 04/21/17 10:15 - Home Medications Home Medications: Ambulatory Orders Aspirin [ASA -] 81 mg PO DAILY 03/14/14 Lisinopril [Prinivil -] 20 mg PO DAILY 10/13/14 Rosuvastatin Calcium [Crestor] 20 mg PO HS 10/13/14 Gabapentin 300 mg PO TID 01/02/16 Omeprazole [Prilosec] 40 mg PO DAILY 01/02/16 Oxycodone HCl/Acetaminophen [Percocet 5-325 mg Tablet] 1 tab PO Q6H PRN #13 tablet MDD 4 02/20/17 Carvedilol [Coreg -] 12.5 mg PO BID 03/09/17 Insulin Glargine,Hum.rec.anlog [Lantus Solostar PEN (NF)] 20 units SQ HS Albuterol Sulfate Inhaler - [Ventolin HFA Inhaler -] 1 - 2 inh IH Q4H PRN Salmeterol/Fluticasone [Advair 500Mcg/50Mcg -] 1 puff IH DAILY 04/21/17 Family Disease History - Family Disease History Family Disease History: Heart Disease: Mother (mother's side has "Heart problems "), CA: Father (history of CA on fathers side ) Review of Systems - Review of Systems Constitutional: reports: Chills (occasional has not had chills in a few weeks.) Eyes: reports: No Symptoms HENT: reports: No Symptoms Neck: reports: No Symptoms Cardiovascular: reports: No Symptoms Respiratory: reports: No Symptoms Gastrointestinal: reports: No Symptoms Genitourinary: reports: Incontinence Breasts: reports: No Symptoms Reported Musculoskeletal: reports: Back Pain, Extremity Pain (LLE), Muscle Pain, Muscle Weakness (left sided weakness especially in lower extreity) Integumentary: reports: No Symptoms Endocrine: reports: No Symptoms Psychiatric: reports: No Symptoms Pain Intensity: 10 Physical Examination Vital Signs: Vital Signs Temperature 97.9 F 04/21/17 09:50 Pulse Rate 65 04/21/17 16:00 Respiratory Rate 18 04/21/17 16:00 Blood Pressure 139/74 04/21/17 16:00 O2 Sat by Pulse Oximetry (%) 95 04/21/17 16:00 Constitutional: Yes: Well Nourished, No Distress, Calm Eyes: Yes: Conjunctiva Clear, EOM Intact HENT: Yes: Atraumatic, Tonsillar Exudate Neck: Yes: Supple, Trachea Midline Cardiovascular: Yes: Regular Rate and Rhythm Respiratory: Yes: CTA Bilaterally Gastrointestinal: Yes: Normal Bowel Sounds, Soft, Abdomen, Obese Extremities: Yes: Other (RLE in cast LLE ternder to palpation all along left lower extremity no edema) Edema: No Integumentary: Yes: WNL Wound/Incision: Yes: Well Approximated Neurological: Yes: Alert, Oriented, Cran Nerves II-XII Intact ...Motor Strength: LLE (bilateral lower extremiies strength 4/5. back and LLE ar painful to passive and active motion. hyperactive LLE knee jerk reflex) Psychiatric: Yes: Alert, Oriented Imaging - Results Cat Scan: Report Reviewed, Image Reviewed Ultrasound: Report Reviewed Assessment/Plan EKG: sinus rhythm with premature atrial beats TWI LVH 56F with multiple medical problems presents to the ED with intractable back and LLE pain of acute onset which started 2 days ago. problem list: back pain possible radiculopathy vs spinal abscess -unlikely to be infectious since no elevated WBC count and no fevers left lower extremity pain and tenderness history of CVA with left sided residual weakness CHF NIDDM GERD HTN hld asthma/COPD UTI Plan: Place on observation pain control continue gabapentin MRI Spine Rocephin for UTI restart Coreg restart crestor Continue aspirin continue lisinopril Levemir ISS BGM ACHs Advair albuterol PRN GI PPx DVT PPx-can not use SCDs bc of cast on RLE and tenderness of LLE will do heparin subQ q8h. Case discussed with attending and medical team full H&P to follow Visit type - Emergency Visit Emergency Visit: Yes ED Registration Date: 04/21/17 Care time: The patient presented to the Emergency Department on the above date and was hospitalized for further evaluation of their emergent condition. - New Patient This patient is new to me today: Yes Date on this admission: 04/21/17 - Critical Care Critical Care patient: No
[2017-04-21 17:22] LABS: URINE MUCUS RARE; URINE RBC 1 /hpf (0-3); URINE WBC 13 /hpf (3-5)
[2017-04-21] MEDS ORDERED: CEPHALEXIN MONOHYDRATE 500 MG CAPSULE (UD) PO SCH (18:00)
[2017-04-21] MEDS ORDERED: cefTRIAXone SODIUM 1 GM VIAL ONE (19:45)
[2017-04-21] MEDS ORDERED: DEXTROSE 5%-WATER - 50 ML IVPB ONE (19:46)
[2017-04-21] MEDS: CEFTRIAXONE 1 GM in DEXTROSE 5%-WATER - 50 ML IVPB SCH (19:51)
[2017-04-21] MEDS ORDERED: PT OWN MED DRAWER 7, Y5N ONE ×2 (20:57→22:18)
[2017-04-21] MEDS ORDERED: ROSUVASTATIN CA 10 MG TABLET (FP) ONE (20:57)
[2017-04-21] MEDS: GABAPENTIN 300 MG CAPSULE (FP) PO SCH (21:12)
[2017-04-21] MEDS: HEPARIN NA (PORCINE) 5,000 UNITS/ML 1ML VIAL SQ SCH (21:12)
[2017-04-21] MEDS: CARVEDILOL 12.5 MG TABLET (FP) PO SCH (21:12)
[2017-04-21] MEDS: INSULIN DETEMIR 100 UNITS/ML MDV SQ SCH (21:21)
[2017-04-21] MEDS: ROSUVASTATIN CA 10 MG TABLET (FP) PO SCH (21:25)
[2017-04-21] MEDS ORDERED: INSULIN (NOVOLOG) ASPART 100 UNITS/ML 10ML VIAL ONE (21:26)
[2017-04-21] MEDS: BUDESONIDE/FORMETEROL FUMARATE 160/4.5 mcg INHALER IH SCH (21:27)
[2017-04-21] MEDS: INSULIN SLIDING SCALE (NOVOLOG) 1 VIAL SQ SCH (21:27)
[2017-04-21] MEDS ORDERED: morphine CARPU-JECT 4 MG/1 ML DISP.SYRIN IVPUSH PRN (21:41)
[2017-04-22] MEDS: GABAPENTIN 300 MG CAPSULE (FP) PO SCH ×3 (06:01→21:50)
[2017-04-22] MEDS: HEPARIN NA (PORCINE) 5,000 UNITS/ML 1ML VIAL SQ SCH ×3 (06:01→21:51)
[2017-04-22] MEDS: INSULIN SLIDING SCALE (NOVOLOG) 1 VIAL SQ SCH ×4 (06:34→21:40)
[2017-04-22 08:55] LABS: BASOPHIL 0.8 % (0-2.0); EOSINOPHIL 3.5 % (0-4.5); MCH 26.4 pg (25.7-33.7); MCHC 32.1 g/dl (32.0-36.0); MEAN CELL VOLUME 82.3 fl (80-96); MEAN PLT VOLUME 10.3 fl (7.5-11.1); NEUTROPHILS 50.6 % (42.8-82.8); PLATELET COUNT 183 K/MM3 (134-434); RDW 14.6 % (11.6-15.6); WHITE BLOOD COUNT 7.1 K/mm3 (4.0-10.0)
[2017-04-22 09:26] LABS: ANION GAP 9 (8-16); CO2 29 mmol/L (21-32); CREATININE 0.7 mg/dL (0.55-1.02); GLUCOSE,RANDOM 198 mg/dL (74-106); MAGNESIUM 1.8 mg/dL (1.8-2.4); PHOSPHOROUS 4.6 mg/dL (2.5-4.9)
[2017-04-22] MEDS ORDERED: PT OWN MED DRAWER 7, Y5N ONE (09:36)
[2017-04-22] MEDS ORDERED: DEXTROSE 5%-WATER - 50 ML IVPB ONE (09:37)
[2017-04-22] MEDS ORDERED: cefTRIAXone SODIUM 1 GM VIAL ONE (09:37)
[2017-04-22] MEDS: BUDESONIDE/FORMETEROL FUMARATE 160/4.5 mcg INHALER IH SCH ×2 (09:44→21:40)
[2017-04-22] MEDS: CEFTRIAXONE 1 GM in DEXTROSE 5%-WATER - 50 ML IVPB SCH (09:44)
[2017-04-22] MEDS: LISINOPRIL 20 MG TABLET (FP) PO SCH (09:45)
[2017-04-22] MEDS: ASPIRIN 81 MG CHEWABLE TABLETS PO SCH (09:45)
[2017-04-22] MEDS: PANTOPRAZOLE 40 MG TABLET (FP) PO SCH (09:45)
[2017-04-22] MEDS: CARVEDILOL 12.5 MG TABLET (FP) PO SCH ×2 (09:45→21:50)
[2017-04-22 12:18] LABS: THYROID STIMULATING HORMONE 2.22 uIU/ml (0.358-3.74)
[2017-04-22] MEDS ORDERED: oxyCODONE HCL 5 MG TABLET PO PRN (14:03)
[2017-04-22] MEDS ORDERED: ACETAMINOPHEN 325 MG TABLET (FP) PO PRN (14:03)
--- NOTE | 2017-04-22 15:52 | PN ---
Physical Exam: SUBJECTIVE: Patient seen and examined at bedside. No acute events overnight. Pt states pain is much improved from yest. Denies headache, cp, sob, abd pain, nausea, vomiting, diarrhea, dysuria, fever. OBJECTIVE: Vital Signs Period Temp Pulse Resp BP Sys/Jaimes Pulse Ox Last 24 Hr 97.5 F-98.8 F 65-88 16-20 109-146/63-78 95-96 GENERAL: The patient is awake, alert, and fully oriented, in no acute distress. HEAD: Normal with no signs of trauma. EYES: sclera anicteric, conjunctiva clear. No ptosis. ENT: oropharynx clear without exudates, moist mucous membranes. NECK: Trachea midline, full range of motion, supple. LUNGS: Breath sounds equal, clear to auscultation bilaterally, no wheezes, no crackles, no accessory muscle use. HEART: Regular rate and rhythm, normal S1, S2 without murmur, rub or gallop. ABDOMEN: Soft, nontender, nondistended, normoactive bowel sounds, no guarding, no rebound, no hepatosplenomegaly, no masses. 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 NEUROLOGICAL: Cranial nerves II through XII grossly intact. Normal speech, gait not observed. PSYCH: Normal mood, normal affect. SKIN: Warm, dry, normal turgor, no rashes or lesions noted Laboratory Results - last 24 hr 04/21/17 04/21/17 04/22/17 15:06 21:13 05:39 WBC RBC Hgb Hct MCV MCH MCHC RDW Plt Count MPV Neutrophils % Lymphocytes % Monocytes % Eosinophils % Basophils % Sodium Potassium Chloride Carbon Dioxide Anion Gap BUN Creatinine POC Glucometer 219 206 Random Glucose Hemoglobin A1c % Calcium Phosphorus Magnesium TSH Free T4 Urine Color Ltyellow Urine Appearance Clear Urine pH 5.0 Ur Specific [place] <= 1.005 Urine Protein Negative Urine Glucose (UA) 3+ H Urine Ketones Negative Urine Blood 1+ H Urine Nitrite Negative Urine Bilirubin Negative Urine Urobilinogen Negative Ur Leukocyte Esterase 1+ H Urine RBC 1 Urine WBC 13 Ur Epithelial Cells Rare Urine Mucus Rare 04/22/17 04/22/17 04/22/17 06:35 06:35 06:35 WBC 7.1 RBC 4.28 Hgb 11.3 Hct 35.3 MCV 82.3 MCH 26.4 MCHC 32.1 RDW 14.6 Plt Count 183 MPV 10.3 Neutrophils % 50.6 Lymphocytes % 40.4 H Monocytes % 4.7 Eosinophils % 3.5 D Basophils % 0.8 Sodium 139 Potassium 3.8 Chloride 101 Carbon Dioxide 29 Anion Gap 9 BUN 12 D Creatinine 0.7 POC Glucometer Random Glucose 198 H D Hemoglobin A1c % Calcium 9.0 Phosphorus 4.6 Magnesium 1.8 TSH 2.22 Free T4 0.99 Urine Color Urine Appearance Urine pH Ur Specific [place] Urine Protein Urine Glucose (UA) Urine Ketones Urine Blood Urine Nitrite Urine Bilirubin Urine Urobilinogen Ur Leukocyte Esterase Urine RBC Urine WBC Ur Epithelial Cells Urine Mucus 04/22/17 04/22/17 06:35 11:34 WBC RBC Hgb Hct MCV MCH MCHC RDW Plt Count MPV Neutrophils % Lymphocytes % Monocytes % Eosinophils % Basophils % Sodium Potassium Chloride Carbon Dioxide Anion Gap BUN Creatinine POC Glucometer 253 Random Glucose Hemoglobin A1c % 10.6 H Calcium Phosphorus Magnesium TSH Free T4 Urine Color Urine Appearance Urine pH Ur Specific [place] Urine Protein Urine Glucose (UA) Urine Ketones Urine Blood Urine Nitrite Urine Bilirubin Urine Urobilinogen Ur Leukocyte Esterase Urine RBC Urine WBC Ur Epithelial Cells Urine Mucus Active Medications Generic Name Dose Route Start Last Admin Trade Name Freq PRN Reason Stop Dose Admin Acetaminophen 325 mg 04/22/17 14:03 Tylenol - PO Q6H PRN FEVER OR PAIN Albuterol Sulfate 2 puff 04/21/17 17:12 Ventolin Hfa Inhaler - IH Q4H PRN SHORT OF BREATH/WHEEZING Aspirin 81 mg 04/22/17 10:00 04/22/17 09:45 Asa - PO 81 mg DAILY MINH Administration Budesonide/Formoterol Fumarate 2 puff 04/21/17 22:00 04/22/17 09:44 Symbicort 160/4.5mcg - IH 2 puff BID MINH Administration Carvedilol 12.5 mg 04/21/17 22:00 04/22/17 09:45 Coreg - PO 12.5 mg BID MINH Administration Cyclobenzaprine HCl 5 mg 04/22/17 22:00 Flexeril - PO HS MINH Gabapentin 300 mg 04/21/17 22:00 04/22/17 13:38 Neurontin - PO 300 mg TID MINH Administration Heparin Sodium (Porcine) 5,000 unit 04/21/17 22:00 04/22/17 13:38 Heparin - SQ 5,000 unit TID MINH Administration Ceftriaxone Sodium 1 gm/ 50 mls @ 100 mls/hr 04/21/17 18:00 04/22/17 09:44 Dextrose IVPB 100 mls/hr DAILY MINH Administration Insulin Aspart 1 vial 04/21/17 22:00 04/22/17 11:36 Novolog Vial Sliding Scale - SQ 4 units ACHS MINH Administration Protocol Insulin Detemir 25 units 04/21/17 22:00 04/21/17 21:21 Levemir Vial SQ 25 units HS MINH Administration Lidocaine 1 patch 04/22/17 14:45 Lidoderm Patch - TP DAILY MINH Lisinopril 20 mg 04/22/17 10:00 04/22/17 09:45 Prinivil PO 20 mg DAILY MINH Administration Miscellaneous 1 each 04/22/17 22:00 Lidoderm Patch Removal MC DAILY@2200 MINH Oxycodone HCl 5 mg 04/22/17 14:03 Roxicodone - PO Q6H PRN PAIN Pantoprazole Sodium 40 mg 04/22/17 10:00 04/22/17 09:45 Protonix - PO 40 mg DAILY MINH Administration Rosuvastatin Calcium 20 mg 04/21/17 22:00 04/21/17 21:25 Crestor - PO 20 mg HS MINH Administration ASSESSMENT/PLAN: 56 y/o F w/ PMH right ankle ORIF (03/19), CVA (with residual Left sided deficit) , CHF, NIDDM, GERD, HTN, hypercholesterolemia, asthma who presents to the ED with left groin and flank pain for 2 days admitted to Obs to r/o possible spinal abscess or radiculopathy #Back Pain -severe L flank / lower back pain with radiation to the left groin and left leg -L spine MRI: L4-5 disk desication and loss of height -T spine MRI: shows no spinal stenosis or disk disease -no abscess on MRI -Percocet -Tylenol 650mg PO Q4 PRN -Flexeril 5mg PO HS -Lidocain patch #UTI -Left groin pain -UA on admission: 3+ glucose, 1+ blood, 1+ LE, 13 WBC -On Cephtiraxone day 2 #Prior CVA with residual L weakness - Continue Gabapentin 300mg PO BID #CHF -Lisinopril 20mg PO BID #DM -Novolog ISS -Levemir 25u SubQ HS -DM diet -BGM #GERD -Protonix 40mg PO Daily #HTN -Lisinopril 20mg PO daily -Coreg 12.5mg PO BID #HLD -Crestor 20mg PO HS -ASA 81mg PO daily #Asthma/COPD -Albuterol 2 puff Q4 PRN -Symbicort -O2 #FEN -not on fluids -f/u lytes -DM diet #PPx -DVT: HSQ -GI: Protonix -Deconditioning: ambulation #Dispo -Obs Agustín Castro MD PGY-1 Visit type - Emergency Visit Emergency Visit: No - New Patient This patient is new to me today: No - Critical Care Critical Care patient: No - Discharge Referral Referred to [facility] Med [facility] No
[2017-04-22] MEDS ORDERED: INSULIN (NOVOLOG) ASPART 100 UNITS/ML 10ML VIAL ONE ×2 (16:13→21:37)
[2017-04-22] MEDS: LIDOCAINE 5% TOPICAL PATCH TP SCH (16:19)
--- NOTE | 2017-04-22 18:53 | PN ---
Teaching Attending Note Name of Resident: Agustín Castro ATTENDING PHYSICIAN STATEMENT I saw and evaluated the patient. I reviewed the resident's note and discussed the case with the resident. I agree with the resident's findings and plan as documented. SUBJECTIVE: no fever or chills , back pain has improved . no radiation to anterior this today but only to the L [place]ock. has LLQ pain . no dysuria . no N/V admits to L sided decreased sensation and weakness since her stroke which has not changed OBJECTIVE: NAD CV: RRR, Nl S1, S2. no MRG Lungs : CTAB Ext: no edema or erythema . has R ankle cast up to knee. Abd: soft, ND , TTP in LLQ , L CVA tenderness MS: L paraspinal muscle tenderness in Lumbar area. no TTP over spine NEuro: no facial droop, tongue and uvula at mid line, round equal pupils , reactive to light . EOMI. decreased sensation to light touch in L sided face, strength 5/5 in RUE proximally and distally, and in R hip flexion and knee flexion and extension. unable to eval ankle due to cast . strength 4/5 in LUE and LLE proximally and distally , with decreased sensation in LUE and LLE . L knee jerk and biceps 1+ . R biceps 2+ .unablke to eval R knee jerk A/P : 56 y/o lady withh/o CVA , HTN, CHF , GERD , R ankle ORIF on 03/23 who presneted with severe L lower back pain , and was found tohave a UTI 1- Lower back pain , likely due to muscle strain . MRI with no abscess, disk herniation . nerve impingement is possible due to the radiation of pain to L knee neuro exam of LE is notable for L sided weakness and decreased sensation ( from old stroke ) . no red flags - add lidocaine patch - add flexeril - dc morphine - add percocet 2- complicated UTI. unfortunately , U cx was done while on Abx. due to the L CVA tenderness will treat for 10 days cont rocephine follow cx 3- Dm : cont insulin levemir and SSI 4- h/o CHF , HLP and HT: cont ACEI and coreg and lipitor 5- dispo : need more pT for safe Dc , she does not feel steady enough possible dc tomorrow
[2017-04-22] MEDS: INSULIN DETEMIR 100 UNITS/ML MDV SQ SCH (21:40)
[2017-04-22] MEDS: ROSUVASTATIN CA 10 MG TABLET (FP) PO SCH (21:50)
[2017-04-22] MEDS ORDERED: LIDOCAINE PATCH REMOVAL MC SCH (22:00)
[2017-04-22] MEDS ORDERED: CYCLOBENZAPRINE HCL 10 MG TABLET (FP) PO SCH (22:00)
[2017-04-23] MEDS: GABAPENTIN 300 MG CAPSULE (FP) PO SCH ×2 (06:35→13:15)
[2017-04-23] MEDS: HEPARIN NA (PORCINE) 5,000 UNITS/ML 1ML VIAL SQ SCH ×2 (06:35→13:15)
[2017-04-23] MEDS: INSULIN SLIDING SCALE (NOVOLOG) 1 VIAL SQ SCH ×2 (06:36→11:36)
[2017-04-23 07:49] LABS: BASOPHIL 0.6 % (0-2.0); EOSINOPHIL 3.6 % (0-4.5); MCH 26.3 pg (25.7-33.7); MCHC 32.1 g/dl (32.0-36.0); MEAN CELL VOLUME 82.1 fl (80-96); MEAN PLT VOLUME 10.4 fl (7.5-11.1); NEUTROPHILS 48.4 % (42.8-82.8); PLATELET COUNT 167 K/MM3 (134-434); RDW 14.3 % (11.6-15.6); WHITE BLOOD COUNT 6.7 K/mm3 (4.0-10.0)
[2017-04-23 08:17] VITALS: BP 130/79; PULSE 78; TEMP 97.8
[2017-04-23 08:22] LABS: ANION GAP 9 (8-16); CO2 31 mmol/L (21-32); CREATININE 0.7 mg/dL (0.55-1.02); GLUCOSE,RANDOM 214 mg/dL (74-106)
--- NOTE | 2017-04-23 09:02 | PN ---
Physical Exam: SUBJECTIVE: Patient seen and examined at bedside. Pt states she was "very sweaty " last night to the point that she had to change her gown. Pt was afebrile. Pt states pain is continuing to improve, now at a 3. Denies headache, cp, sob, abd pain, nausea, vomiting, diarrhea, dysuria, fever. OBJECTIVE: Vital Signs Period Temp Pulse Resp BP Sys/Jaimes Pulse Ox Last 24 Hr 97.5 F-99.2 F 77-86 16-18 109-141/63-79 97-98 GENERAL: The patient is awake, alert, and fully oriented, in no acute distress. HEAD: Normal with no signs of trauma. EYES: sclera anicteric, conjunctiva clear. No ptosis. ENT: oropharynx clear without exudates, moist mucous membranes. NECK: Trachea midline, full range of motion, supple. LUNGS: Breath sounds equal, clear to auscultation bilaterally, no wheezes, no crackles, no accessory muscle use. HEART: Regular rate and rhythm, normal S1, S2 without murmur, rub or gallop. ABDOMEN: Soft, nontender, nondistended, normoactive bowel sounds, no guarding, no rebound, no hepatosplenomegaly, no masses. Left flank tenderness. EXTREMITIES: 2+ pulses, warm, well-perfused, no edema. NEUROLOGICAL: Cranial nerves II through XII grossly intact. Normal speech, gait not observed. PSYCH: Normal mood, normal affect. SKIN: Warm, dry, normal turgor, no rashes or lesions noted Laboratory Results - last 24 hr 04/22/17 04/22/17 04/22/17 06:35 06:35 06:35 WBC 7.1 RBC 4.28 Hgb 11.3 Hct 35.3 MCV 82.3 MCH 26.4 MCHC 32.1 RDW 14.6 Plt Count 183 MPV 10.3 Neutrophils % 50.6 Lymphocytes % 40.4 H Monocytes % 4.7 Eosinophils % 3.5 D Basophils % 0.8 Sodium 139 Potassium 3.8 Chloride 101 Carbon Dioxide 29 Anion Gap 9 BUN 12 D Creatinine 0.7 POC Glucometer Random Glucose 198 H D Hemoglobin A1c % Calcium 9.0 Phosphorus 4.6 Magnesium 1.8 TSH 2.22 Free T4 0.99 Free T3 04/22/17 04/22/17 04/22/17 06:35 06:35 11:34 WBC RBC Hgb Hct MCV MCH MCHC RDW Plt Count MPV Neutrophils % Lymphocytes % Monocytes % Eosinophils % Basophils % Sodium Potassium Chloride Carbon Dioxide Anion Gap BUN Creatinine POC Glucometer 253 Random Glucose Hemoglobin A1c % 10.6 H Calcium Phosphorus Magnesium TSH Free T4 Free T3 2.6 04/22/17 04/22/17 04/23/17 16:22 21:32 06:31 WBC RBC Hgb Hct MCV MCH MCHC RDW Plt Count MPV Neutrophils % Lymphocytes % Monocytes % Eosinophils % Basophils % Sodium Potassium Chloride Carbon Dioxide Anion Gap BUN Creatinine POC Glucometer 253 280 196 Random Glucose Hemoglobin A1c % Calcium Phosphorus Magnesium TSH Free T4 Free T3 04/23/17 04/23/17 06:35 06:35 WBC 6.7 RBC 4.26 Hgb 11.2 Hct 34.9 MCV 82.1 MCH 26.3 MCHC 32.1 RDW 14.3 Plt Count 167 MPV 10.4 Neutrophils % 48.4 Lymphocytes % 41.4 H Monocytes % 6.0 Eosinophils % 3.6 Basophils % 0.6 Sodium 141 Potassium 4.0 Chloride 101 Carbon Dioxide 31 Anion Gap 9 BUN 14 Creatinine 0.7 POC Glucometer Random Glucose 214 H Hemoglobin A1c % Calcium 9.0 Phosphorus Magnesium TSH Free T4 Free T3 Active Medications Generic Name Dose Route Start Last Admin Trade Name Gerardo PRN Reason Stop Dose Admin Acetaminophen 325 mg 04/22/17 14:03 Tylenol - PO Q6H PRN FEVER OR PAIN Albuterol Sulfate 2 puff 04/21/17 17:12 Ventolin Hfa Inhaler - IH Q4H PRN SHORT OF BREATH/WHEEZING Aspirin 81 mg 04/22/17 10:00 04/22/17 09:45 Asa - PO 81 mg DAILY MINH Administration Budesonide/Formoterol Fumarate 2 puff 04/21/17 22:00 04/22/17 21:40 Symbicort 160/4.5mcg - IH 2 puff BID MINH Administration Carvedilol 12.5 mg 04/21/17 22:00 04/22/17 21:50 Coreg - PO 12.5 mg BID MINH Administration Cyclobenzaprine HCl 5 mg 04/22/17 22:00 04/22/17 21:48 Flexeril - PO 5 mg HS MINH Administration Gabapentin 300 mg 04/21/17 22:00 04/23/17 06:35 Neurontin - PO 300 mg TID MINH Administration Heparin Sodium (Porcine) 5,000 unit 04/21/17 22:00 04/23/17 06:35 Heparin - SQ 5,000 unit TID MINH Administration Ceftriaxone Sodium 1 gm/ 50 mls @ 100 mls/hr 04/21/17 18:00 04/22/17 09:44 Dextrose IVPB 100 mls/hr DAILY MINH Administration Insulin Aspart 1 vial 04/21/17 22:00 04/23/17 06:36 Novolog Vial Sliding Scale - SQ Not Given ACHS [facility] Protocol Insulin Detemir 25 units 04/21/17 22:00 04/22/17 21:40 Levemir Vial SQ 25 units HS MINH Administration Lidocaine 1 patch 04/22/17 14:45 04/22/17 16:19 Lidoderm Patch - TP 1 patch DAILY MINH Administration Lisinopril 20 mg 04/22/17 10:00 04/22/17 09:45 Prinivil PO 20 mg DAILY MINH Administration Miscellaneous 1 each 04/22/17 22:00 04/22/17 21:51 Lidoderm Patch Removal MC 1 each DAILY@2200 MINH Administration Oxycodone HCl 5 mg 04/22/17 14:03 Roxicodone - PO Q6H PRN PAIN Pantoprazole Sodium 40 mg 04/22/17 10:00 04/22/17 09:45 Protonix - PO 40 mg DAILY MINH Administration Rosuvastatin Calcium 20 mg 04/21/17 22:00 04/22/17 21:50 Crestor - PO 20 mg HS MINH Administration ASSESSMENT/PLAN: 56 y/o F w/ PMH right ankle ORIF (03/19), CVA (with residual Left sided deficit) , CHF, NIDDM, GERD, HTN, hypercholesterolemia, asthma who presents to the ED with left groin and flank pain for 2 days admitted to Obs to r/o possible spinal abscess or radiculopathy #Back Pain: Resolving -severe L flank / lower back pain with radiation to the left groin and left leg -L spine MRI: L4-5 disk desication and loss of height -T spine MRI: shows no spinal stenosis or disk disease -no abscess on MRI -Percocet -Tylenol 650mg PO Q4 PRN -Flexeril 5mg PO HS -Lidocain patch #UTI -Left groin pain -UA on admission: 3+ glucose, 1+ blood, 1+ LE, 13 WBC -On Cephtiraxone day 3 #Prior CVA with residual L weakness - Continue Gabapentin 300mg PO BID #CHF -Lisinopril 20mg PO BID #DM -Novolog ISS -Levemir 25u SubQ HS -DM diet -BGM #GERD -Protonix 40mg PO Daily #HTN -Lisinopril 20mg PO daily -Coreg 12.5mg PO BID #HLD -Crestor 20mg PO HS -ASA 81mg PO daily #Asthma/COPD -Albuterol 2 puff Q4 PRN -Symbicort -O2 #FEN -not on fluids -f/u lytes -DM diet #PPx -DVT: HSQ -GI: Protonix -Deconditioning: ambulation #Dispo -Obs Agustín Castro MD PGY-1
[2017-04-23] MEDS ORDERED: PT OWN MED DRAWER 7, Y5N ONE (09:14)
[2017-04-23] MEDS ORDERED: cefTRIAXone SODIUM 1 GM VIAL ONE (09:14)
[2017-04-23] MEDS ORDERED: DEXTROSE 5%-WATER - 50 ML IVPB ONE (09:15)
[2017-04-23] MEDS: CARVEDILOL 12.5 MG TABLET (FP) PO SCH (09:25)
[2017-04-23] MEDS: LIDOCAINE 5% TOPICAL PATCH TP SCH (09:25)
[2017-04-23] MEDS: CEFTRIAXONE 1 GM in DEXTROSE 5%-WATER - 50 ML IVPB SCH (09:25)
[2017-04-23] MEDS: BUDESONIDE/FORMETEROL FUMARATE 160/4.5 mcg INHALER IH SCH (09:25)
[2017-04-23] MEDS: PANTOPRAZOLE 40 MG TABLET (FP) PO SCH (09:26)
[2017-04-23] MEDS: LISINOPRIL 20 MG TABLET (FP) PO SCH (09:26)
[2017-04-23] MEDS: ASPIRIN 81 MG CHEWABLE TABLETS PO SCH (09:26)
--- NOTE | 2017-04-23 09:29 | PN ---
Teaching Attending Note Name of Resident: Agustín Castro ATTENDING PHYSICIAN STATEMENT I saw and evaluated the patient. I reviewed the resident's note and discussed the case with the resident. I agree with the resident's findings and plan as documented. SUBJECTIVE: feels better today,. Back pain is better , with radiation to L thigh anteriorly and L buttock . OBJECTIVE: NAD CV: RRR, Nl S1, S2. no MRG Lungs: CTAB Ext: no edema or erythema . has R ankle cast up to knee. Abd: soft, ND , minimal TTP in LLQ , L CVA tenderness. no rebound tenderness or guarding MS: L paraspinal muscle tenderness in Lumbar area. no TTP over spine NEuro: no facial droop, tongue and uvula at mid line, round equal pupils , reactive to light . EOMI. decreased sensation to light touch in L sided face, strength 5/5 in RUE proximally and distally, and in R hip flexion and knee flexion and extension. unable to eval ankle due to cast . strength 4/5 in LUE and LLE proximally and distally , with decreased sensation in LUE and LLE . L knee jerk and biceps 1+ . R biceps 2+ .unable to eval R knee jerk A/P : 56 y/o lady withh/o CVA , HTN, CHF , GERD , R ankle ORIF on 03/23 who presneted with severe L lower back pain , and was found tohave a UTI 1- Lower back pain , likely due to muscle strain . MRI with no abscess, or disk herniation . nerve impingement is possible due to the radiation of pain to L knee . - COnt lidocaine patch - cont flexeril - COnt percocet 2- Complicated UTI. Urine cx with no growth , but was done after Abx were started will cont po abx at home 3- DM : cont insulin levemir and SSI 4- H/o CHF , HLP and HT: cont ACEI and coreg and lipitor 5- Dispo: More PT today for safe dc to home . declines rehab placement
[2017-04-23] MEDS ORDERED: INSULIN (NOVOLOG) ASPART 100 UNITS/ML 10ML VIAL ONE (11:17)
== END 2017-04-23 16:17 | disposition home health service (06) | DRG 563 ==
LOC: JER 09:50 → JERBED 14:44 → J6S 16:57 → OBSVTOIN 04-23 09:30
PROVIDERS: ADMIT Internal Medicine; ATTEND Internal Medicine
DX: S39.012A Strain of muscle, fascia and tendon of lower back, initial encounter (principal); I69.854 Hemiplegia and hemiparesis following other cerebrovascular disease affecting left non-dominant side; N39.0 Urinary tract infection, site not specified; J98.11 Atelectasis; M54.16 Radiculopathy, lumbar region; M54.30 Sciatica, unspecified side; E11.9 Type 2 diabetes mellitus without complications; K21.9 Gastro-esophageal reflux disease without esophagitis; J44.9 Chronic obstructive pulmonary disease, unspecified; J45.909 Unspecified asthma, uncomplicated; I11.0 Hypertensive heart disease with heart failure; I50.9 Heart failure, unspecified
CPT/HCPCS: 36415; 71275-TC; 72146-TC; 72148-TC; 80048; 80053; 81003; 81015; 82550; 83036; 83735; 84100; 84439; 84443; 84481; 84484; 85025; 85379; 85610; 87086; 93005; 93010; 93970-TC; 97116-GP; 97161-GP; 99281-25; G0378; J1644

== ENCOUNTER 2018-05-17 06:07 | Emergency (ER) | payer MEDICARE, OTHER ==
[2018-05-17] MEDS ORDERED: DEXAMETHASONE SOD PHOSPHATE 10 MG/1 ML VIAL ONE (06:17)
[2018-05-17] MEDS ORDERED: ALBUTEROL SO4 2.5/IPRATROPIUM 0.5 INH SOL 3 ML VIAL.NEB. NEB ONE (06:17)
[2018-05-17] MEDS ORDERED: ALBUTEROL SO4 0.083% IH SOL 2.5 MG/3 ML VIAL.NEB. NEB ONE ×2 (06:20→06:40)
[2018-05-17 06:22] VITALS: TEMP 98.1; BMI 25.0
--- NOTE | 2018-05-17 06:27 | PDOC ---
*Physical Exam - Vital Signs Last Vital Signs Temp Pulse Resp BP Pulse Ox 98.1 F 102 H 22 138/86 100 05/17/18 06:19 05/17/18 06:19 05/17/18 06:19 05/17/18 06:19 05/17/18 06:19 Medical Decision Making - Medical Decision Making 05/17/18 06:27 Asthma exacerbation. Case discussed with HAI Montiel. Plan as per HAI *DC/Admit/Observation/Transfer Diagnosis at time of Disposition: Asthma attack - Discharge Dispostion Disposition: HOME Condition at time of disposition: Good - Prescriptions Prescriptions: predniSONE [Deltasone -] 40 mg PO DAILY #6 tablet - Referrals Referrals: Erin Richard [Primary Care Provider] - - Patient Instructions Printed Discharge Instructions: Asthma -- Adult Additional Instructions: Please start prednisone tomorrow. Carry your inhaler with you at all times. If his symptoms return or worsen please go to the nearest ER. Otherwise follow up with her sort worker. - Post Discharge Activity
--- NOTE | 2018-05-17 06:39 | PDOC ---
History of Present Illness - General Chief Complaint: Asthma Stated Complaint: S.O.B. Time Seen by Provider: 05/17/18 06:24 History Source: Patient Exam Limitations: No Limitations - History of Present Illness Initial Comments: 05/17/18 06:29 Patient is a 57 year old female with h/o asthma, environmental allergies, DM, CVA with left sided weakness, Cardiomyopathy, right ankle pins and plates, cardiac cath, hysterectomy, oopharectomy c/o sob, coughing, nausea, chest tightness jn with talking since 4 am. Patient states used her nebulizer and advair prior to going to bed last night then woke up at 4am with symptoms of tightness and a wet cough when she usually had a dry cough. Denies fever, chills, diarrhea. Enroute was given decadron and duonebs x 3. On arrival feeling better but still has some tightness. PMD: [facility]. PMHX: as above PSOCHX: neg etoh, drug, cig Past History - Past Medical History Allergies/Adverse Reactions: Allergies Allergy/AdvReac Type Severity Reaction Status Date / Time No Known Allergies Allergy Verified 05/17/18 06:21 Home Medications: Ambulatory Orders Aspirin [ASA -] 81 mg PO DAILY 03/14/14 Lisinopril [Prinivil -] 20 mg PO DAILY 10/13/14 Rosuvastatin Calcium [Crestor] 20 mg PO HS 10/13/14 Gabapentin 300 mg PO TID 01/02/16 Omeprazole [Prilosec] 40 mg PO DAILY 01/02/16 Carvedilol [Coreg -] 12.5 mg PO BID 03/09/17 Albuterol Sulfate Inhaler - [Ventolin HFA Inhaler -] 1 - 2 inh IH Q4H PRN Salmeterol/Fluticasone [Advair 500Mcg/50Mcg -] 1 puff IH DAILY 04/21/17 Lidocaine 5% Patch [Lidoderm -] 1 patch TP DAILY #10 patch 04/23/17 Cyclobenzaprine HCl [Flexeril -] 5 mg PO HS PRN 05/17/18 Dulaglutide [Trulicity] 1.5 mg SQ FR 05/17/18 Insulin Aspart [Novolog] 8 unit SQ TID 08/20/18 Insulin Glargine,Hum.rec.anlog [Saroj Hines U-100] 20 unit SQ HS 05/17/18 Anemia: No Asthma: Yes Cancer: No Cardiac Disorders: Yes CVA: Yes (1999 L hemiparesis) COPD: No CHF: Yes (1999) Dementia: No Diabetes: Yes (NIDDM/2011) GI Disorders: Yes (GERD) Disorders: No HTN: Yes Hypercholesterolemia: Yes Liver Disease: No Seizures: No Thyroid Disease: No - Surgical History Abdominal Surgery: No Appendectomy: No Cardiac Surgery: Yes (CATHERIZATION WITH STENTS) Cholecystectomy: No Lung Surgery: No Neurologic Surgery: No Orthopedic Surgery: No - Immunization History Immunization Up to Date: Yes - Suicide/Smoking/Psychosocial Hx Smoking History: Never smoked Have you smoked in the past 12 months: No Information on smoking cessation initiated: No Hx Alcohol Use: No Drug/Substance Use Hx: No Substance Use Type: None Hx Substance Use Treatment: No *Physical Exam - Vital Signs Last Vital Signs Temp Pulse Resp BP Pulse Ox 98.1 F 102 H 22 138/86 100 05/17/18 06:19 05/17/18 06:19 05/17/18 06:19 05/17/18 06:19 05/17/18 06:19 ED Treatment Course - RADIOLOGY Radiology Studies Ordered: Category Date Time Status CHEST PA & LAT [RAD] Stat Radiology 05/17/18 06:25 Ordered Medical Decision Making - Medical Decision Making 05/17/18 06:29 Patient is a 57 year old female with h/o asthma, environmental allergies, DM, CVA with left sided weakness, Cardiomyopathy, right ankle pins and plates, cardiac cath, hysterectomy, oopharectomy c/o sob, coughing, nausea, chest tightness jn with talking since 4 am, consistent with asthma exacerbation. patient is mostly resolved currently on arrival but will give Albuterol neb x 1' cxr reassess endorsed to AM team FARZAD Bernal pending resolution of symptoms, cxr r/o pneumonia *DC/Admit/Observation/Transfer Diagnosis at time of Disposition: Asthma attack Qualifiers: Asthma severity: mild Asthma persistence: unspecified Qualified Code(s): J45.901 - Unspecified asthma with (acute) exacerbation - Discharge Dispostion Condition at time of disposition: Fair - Referrals Referrals: Erin Richard [Primary Care Provider] - - Patient Instructions - Post Discharge Activity
--- NOTE | 2018-05-17 09:19 | PDOC ---
*Physical Exam - Vital Signs Last Vital Signs Temp Pulse Resp BP Pulse Ox 98.1 F 102 H 22 138/86 100 05/17/18 06:19 05/17/18 06:19 05/17/18 06:19 05/17/18 06:19 05/17/18 06:55 ED Treatment Course - Medications Given in the ED: ED Medications Discontinued Medications Generic Name Dose Route Start Last Admin Trade Name Frephyllis PRN Reason Stop Dose Admin Albuterol Sulfate 1 amp 05/17/18 06:20 05/17/18 06:50 Ventolin 0.083% Nebulizer Soln - NEB 05/17/18 06:21 1 amp ONCE ONE Administration Medical Decision Making - Medical Decision Making 05/17/18 08:18 Pt received in signout from FARZAD Montiel. Patient asthma exacerbation penning a chest x-ray. Patient is currently asymptomatic and lungs clear on auscultation. 05/17/18 09:57 Patient 's chest x-ray negative for acute findings. Patient's vital signs stable lungs clear to auscultation patient will be discharged 3 days of prednisone to start tomorrow. Patient states have enough albuterol nebulizer solution along with an inhaler *DC/Admit/Observation/Transfer Diagnosis at time of Disposition: Asthma attack Qualifiers: Asthma severity: mild Asthma persistence: unspecified Qualified Code(s): J45.901 - Unspecified asthma with (acute) exacerbation - Discharge Dispostion Disposition: HOME Condition at time of disposition: Good - Referrals Referrals: Erin Richard [Primary Care Provider] - - Patient Instructions Printed Discharge Instructions: Asthma -- Adult Additional Instructions: Please start prednisone tomorrow. Carry your inhaler with you at all times. If his symptoms return or worsen please go to the nearest ER. Otherwise follow up with her chuck tender. - Post Discharge Activity
[2018-05-17 10:36] VITALS: BP 147/78; PULSE 106
== END 2018-05-17 10:37 | disposition home or self-care (01) ==
LOC: JER 06:07
PROC: 3E0F7GC Introduction of Other Therapeutic Substance into Respiratory Tract, Via Natural or Artificial Opening (ICD-10-PCS; principal; 2018-05-17)
DX: J45.901 Unspecified asthma with (acute) exacerbation (principal); I25.10 Atherosclerotic heart disease of native coronary artery without angina pectoris; I10 Essential (primary) hypertension; Z95.5 Presence of coronary angioplasty implant and graft; E11.9 Type 2 diabetes mellitus without complications; Z79.4 Long term (current) use of insulin; E78.00 Pure hypercholesterolemia, unspecified; I69.854 Hemiplegia and hemiparesis following other cerebrovascular disease affecting left non-dominant side
CPT/HCPCS: 71046-TC-FY; 94640; 99283-25

== ENCOUNTER 2018-08-05 10:42 | Inpatient (IN) | payer MEDICARE, OTHER ==
[2018-08-05] MEDS ORDERED: RAPID SEQUENCE INTUBATION KIT NR ONE (10:53)
[2018-08-05] MEDS ORDERED: ETOMIDATE 20 MG/10 ML AMPUL IVPUSH ONE ×3 (11:00→11:34)
[2018-08-05] MEDS: PROPOFOL 1,000,000 MCG/100 ML VIAL IVPB SCH ×2 (11:05→20:52)
[2018-08-05] MEDS ORDERED: PROPOFOL 2,000,000 MCG/200 ML VIAL ONE (11:11)
[2018-08-05] MEDS ORDERED: methylPREDNISolone NA SUCC 125 MG/2 ML VIAL ONE (11:12)
[2018-08-05 11:22] LABS: BASO % 1.1 % (0-2.0); EOS % 0.9 % (0-4.5); HEMATOCRIT 41.8 % (32.4-45.2); LYMPH % 49.9 % (8-40); MCH 26.4 pg (25.7-33.7); MEAN PLT VOLUME 11.2 fl (7.5-11.1); MONO % 4.8 % (3.8-10.2); NEUT % 43.3 % (42.8-82.8); PLATELET COUNT 144 K/MM3 (134-434); RBC 4.92 M/mm3 (3.60-5.2); RDW 16.2 % (11.6-15.6); WHITE BLOOD COUNT 9.5 K/mm3 (4.0-10.0)
[2018-08-05] MEDS ORDERED: ROCURONIUM BROMIDE 50 MG/5 ML VIAL IV ONE (11:33)
--- NOTE | 2018-08-05 11:33 | PDOC ---
History of Present Illness - General Chief Complaint: Respiratory Distress Stated Complaint: UNRESPONSE Time Seen by Provider: 08/05/18 11:33 - History of Present Illness Initial Comments: 08/05/18 11:53 The patient is a 57 year old female with a history of HTN, HLD, CHF, CAD s/p Stent, COPD, CVA who presents for evaluation of respiratory distress. The patient presents via EMS minimally responsive. Per EMS, the patient was experiencing worsening difficulty breathing with associated chest pain earlier this morning prompting her to present to the ED for further evaluation. They noted that she become progressively less responsive en route to the ED. On presentation to the ED, the patient is unresponsive and agonally breathing. ROS is unobtainable. Past History - Past Medical History Allergies/Adverse Reactions: Allergies Allergy/AdvReac Type Severity Reaction Status Date / Time No Known Allergies Allergy Verified 08/05/18 11:06 Home Medications: Ambulatory Orders Aspirin [ASA -] 81 mg PO DAILY 03/14/14 Lisinopril [Prinivil -] 20 mg PO DAILY 10/13/14 Rosuvastatin Calcium [Crestor] 20 mg PO HS 10/13/14 Carvedilol [Coreg -] 12.5 mg PO BID 03/09/17 Albuterol Sulfate Inhaler - [Ventolin HFA Inhaler -] 1 - 2 inh IH Q4H PRN Salmeterol/Fluticasone [Advair 500Mcg/50Mcg -] 1 puff IH DAILY 04/21/17 Insulin Aspart [Novolog] 8 unit SQ TID 05/17/18 Ammonium Lactate Cream [Lac-Hydrin 12% *Cream*] 1 applic TP BID 08/05/18 Glipizide [Glipizide ER] 0 mg PO ASDIR 08/05/18 Insulin Glargine,Hum.rec.anlog [Lantus] 0 unit SQ ASDIR 08/05/18 Spironolactone [Aldactone] 25 mg PO DAILY 08/05/18 Anemia: No Asthma: Yes Cancer: No Cardiac Disorders: Yes CVA: Yes (1999 L hemiparesis) COPD: No CHF: Yes (1999) Dementia: No Diabetes: Yes (NIDDM/2011) GI Disorders: Yes (GERD) Disorders: No HTN: Yes Hypercholesterolemia: Yes Liver Disease: No Seizures: No Thyroid Disease: No - Surgical History Abdominal Surgery: No Appendectomy: No Cardiac Surgery: Yes (CATHERIZATION WITH STENTS) Cholecystectomy: No Lung Surgery: No Neurologic Surgery: No Orthopedic Surgery: No - Immunization History Immunization Up to Date: Yes - Suicide/Smoking/Psychosocial Hx Smoking History: Unknown if ever smoked Have you smoked in the past 12 months: No Hx Alcohol Use: No Drug/Substance Use Hx: No Substance Use Type: None Hx Substance Use Treatment: No Review of Systems - Review of Systems Able to Perform ROS?: No (Unresponsive) *Physical Exam - Vital Signs Last Vital Signs Temp Pulse Resp BP Pulse Ox 125 H 21 H 135/78 88 L 08/05/18 10:45 08/05/18 11:13 08/05/18 10:45 08/05/18 10:45 - Physical Exam Comments: 08/05/18 12:12 General Appearance: Nourished. In Severe Apparent Distress HEENT: No Pharyngeal Erythema, Tonsillar Exudate, Tonsillar Erythema Neck: No Cervical Lymphadenopathy Respiratory/Chest: Poor respiratory effort, Diffuse bilateral crackles on auscultation. Cardiovascular: Regular Rhythm, Tachycardic Rate. No Murmur, Gallops, Rubs Gastrointestinal/Abdominal: Normal Bowel Sounds, Soft. No Guarding, Rebound, Tenderness Musculoskeletal: No CVA Tenderness Extremity: Normal Capillary Refill Integumentary: Normal Color, Dry, Warm Neurologic: Unresponsive Procedures - Intubation Time of Intubation: 11:00 Intubation Method: orotracheal (With Bougie) Blade used: Mac Tube Size (Fr): 7.0 Medications: Etomidate, Rocuronium Tube position @ lip (cm): 21 Tube position confirmed by: Direct visualization, CO2 detector, Chest x-ray, Breath sounds Breath Sounds after Intubation: equal Intubation Complications: oral-unsuccessful attempt (x1), O2 saturation decreased Post Intubation Xray: Yes Heart Score/ECG Review #1 ECG reviewed & interpreted by me at: 12:14 General ECG Interpretation: Sinus Rhythm, Normal Rate, Normal Intervals, No acute ischemic changes ED Treatment Course - LABORATORY CBC & Chemistry Diagram: 08/07/18 05:30 08/07/18 05:30 - ADDITIONAL ORDERS Additional order review: 08/05/18 11:00 RBC 4.92 MCV 85.0 MCHC 31.0 L RDW 16.2 H MPV 11.2 H Neutrophils % 43.3 Lymphocytes % 49.9 H D Monocytes % 4.8 Eosinophils % 0.9 Basophils % 1.1 Medical Decision Making - Critical Care Time Total Critical Care Time (minutes): 45 Critical Care Statement: The care of this patient involved high complexity decision making to prevent further life threatening deterioration of the patient 's condition and/or to evaluate & treat vital organ system(s) failure or risk of failure. - Medical Decision Making 08/05/18 12:14 The patient is a 57 year old female with a history of HTN, HLD, CHF, CAD s/p Stent, COPD, CVA who presents for evaluation of respiratory distress. Patient was initially bag mask ventilated prior to intubation with a 7.0 tube. First pass was unsuccessful under DL. Second pass was successful under DL with a Bougie with etomidate and rocuronium as induction medications. The patient's family arrived and reported that the patient recently had a CTA of the chest to evaluate for PE 1 week ago which was negative and was scheduled to follow up for stress testing and echo tomorrow. Chest plain film obtained demonstrates bilateral pulmonary infiltrates consistent with a ARDS pathology. We will treat the patient with solu-medrol, duonebs, vanc, zosyn here in the ED. We will obtain a cbc, cmp, lactate, abg, ua, blood cultures, coags, urine cultures to evaluate further. The patient will require ICU admission for further management. 08/05/18 14:01 CBC is unremarkable. CMP is unremarkable. Lactate is elevated. UA demonstrates positive leuk esterase with elevated WBC. We discussed the case with the ICU team who accepted the patient. We discussed the case with the admitting team who accepted the patient for admission. *DC/Admit/Observation/Transfer Diagnosis at time of Disposition: Respiratory failure Qualifiers: Chronicity: acute Respiratory failure complication: unspecified whether with hypoxia or hypercapnia Qualified Code(s): J96.00 - Acute respiratory failure, unspecified whether with hypoxia or hypercapnia Pneumonia Qualifiers: Pneumonia type: due to unspecified organism Laterality: unspecified laterality Lung location: unspecified part of lung Qualified Code(s): J18.9 - Pneumonia, unspecified organism - Discharge Dispostion Condition at time of disposition: Guarded Decision to Admit order: Yes - Referrals - Patient Instructions - Post Discharge Activity
[2018-08-05] MEDS ORDERED: methylPREDNISolone NA SUCC 125 MG/2 ML VIAL IVPUSH ONE (11:34)
[2018-08-05] MEDS ORDERED: VANCOMYCIN 1 GRAM (PRE-DOCKED) 1,000 MG/250 ML BAG IVPB ONE ×2 (11:35→11:45)
[2018-08-05] MEDS ORDERED: PIPERACILLIN/TAZOB 4.5 GM 4.5 GM in DEXTROSE 5%-WATER 100 ML IVPB ONE (11:35)
[2018-08-05] MEDS ORDERED: ALBUTEROL SO4 2.5/IPRATROPIUM 0.5 INH SOL 3 ML VIAL.NEB. NEB ONE ×2 (11:41→11:45)
[2018-08-05 11:44] LABS: INR 0.96 (0.83-1.09); PROTHROMBIN TIME (PATIENT) 11.3 SEC (9.7-13.0)
[2018-08-05] MEDS ORDERED: PROPOFOL 1,000,000 MCG/100 ML VIAL IVPB SCH (11:45)
[2018-08-05] MEDS ORDERED: PIPERACILLIN/TAZOB 4.5 GM 4.5 GM/100 ML BAG IVPB ONE (11:45)
[2018-08-05 11:49] LABS: ACTIVATED PTT 30.5 SECONDS (25.2-36.5)
--- NOTE | 2018-08-05 11:51 | PDOC ---
Attending Attestation - Resident Resident Name: Yeison Manning - ED Attending Attestation I have performed the following: I have examined & evaluated the patient, The case was reviewed & discussed with the resident, I agree w/resident's findings & plan, Exceptions are as noted - HPI HPI: 08/05/18 11:51 57-year-old female with history of asthma, diabetes, stroke, coronary disease with stent, hysterectomy presents with unresponsiveness. History was taken from the patient's family and from EMS. The patient was complaining about difficulty breathing and productive cough and chest pain since this morning. The patient had alerted 911. Upon arrival to the ED, the patient had become increasingly less responsive and was unresponsive here numerous department. Patient was not responsive to verbal or tactile stimuli. Patient is noted to have an undetectable oxygen saturation and agonal breathing. Decision was made to intubate the patient. Intubation is performed by Dr. Yeison Manning under my direct supervision. Initial attempt was made under direct visualization but was unsuccessful. However, the patient was easily baggable. A second attempt with a bougie was attempted with successful intubation. The patient was unable to provide a history. O2 saturations improved with intubation. Post intubation x- ray demonstrates findings consistent with ARDS. Intubation correctly placed in the trachea. Patient presently treated as COPD exacerbation with pneumonia. Vancomycin and Zosyn was ordered. Blood cultures ordered. The patient will be admitted to the ICU. - Physicial Exam PE: 08/05/18 11:51 GENERAL: Unresponsive, agonal breathing HEAD: No signs of trauma EYES: EOMI, sclera anicteric, conjunctiva clear NECK: Normal ROM, supple, LUNGS: Diffuse ronchorous bilaterally. HEART: Regular rate and rhythm, normal S1 and S2, no murmurs, rubs or gallops ABDOMEN: Soft, No guarding, no rebound. No masses EXTREMITIES: Normal range of motion, no edema. No clubbing or cyanosis. No cords, erythema, or tenderness NEUROLOGICAL: Unresponsive SKIN: Peripheral cyanosis appreciated. - Critical Care Time Total Critical Care Time: 45 Critical Care Statement: The care of this patient involved high complexity decision making to prevent further life threatening deterioration of the patient 's condition and/or to evaluate & treat vital organ system(s) failure or risk of failure. - Medical Decision Making 08/05/18 11:53 Vital Signs Temp Pulse Resp BP Pulse Ox 125 H 21 H 135/78 88 L 08/05/18 10:45 08/05/18 11:13 08/05/18 10:45 08/05/18 10:45 Patient was presenting with acute respiratory failure with subsequent acute respiratory distress syndrome. We'll need to investigate asthma exacerbation with potential pneumonia. Labs and cultures were obtained. Empiric antibiotics were given. We'll also need to rule out acute coronary syndrome given the chest tightness. We'll give 2 nebs, give steroids, give IV magnesium. ICU consult and admit to the hospital. 08/05/18 12:16 At [facility] on 07/27/2018, the patient had a CAT scan of the chest performed which demonstrated no pulmonary embolus, cardiomegaly and multiple hypodense thyroid nodules. The patient was instructed at that time and instructed follow-up with an echocardiogram, Holter monitor and nuclear stress test. That was due for tomorrow at [facility]. CBC, BMP 08/05/18 11:00 08/05/18 11:00 CMP Sodium 143 mmol/L (136-145) 08/05/18 11:00 Potassium 5.1 mmol/L (3.5-5.1) 08/05/18 11:00 Chloride 107 mmol/L (98-107) 08/05/18 11:00 Carbon Dioxide 21 mmol/L (21-32) 08/05/18 11:00 Anion Gap 14 MMOL/L (8-16) 08/05/18 11:00 BUN 8 mg/dL (7-18) 08/05/18 11:00 Creatinine 1.1 mg/dL (0.55-1.3) 08/05/18 11:00 Creat Clearance w eGFR 51.20 (>60) 08/05/18 11:00 Random Glucose 265 mg/dL (74-106) H 08/05/18 11:00 Calcium 9.2 mg/dL (8.5-10.1) 08/05/18 11:00 Total Bilirubin 0.6 mg/dL (0.2-1) 08/05/18 11:00 AST 34 U/L (15-37) 08/05/18 11:00 ALT 27 U/L (13-61) 08/05/18 11:00 Alkaline Phosphatase 115 U/L (45-117) 08/05/18 11:00 Troponin I 0.04 ng/ml (0.00-0.05) 08/05/18 11:00 Total Protein 7.9 g/dl (6.4-8.2) 08/05/18 11:00 Albumin 3.4 g/dl (3.4-5.0) 08/05/18 11:00 08/05/18 13:11 Case discussed with ICU team. Accepted to ICU. Case discussed with Zena Gandara MD. Case accepted. He requests Dr. Davis and echocardiogram. *DC/Admit/Observation/Transfer Diagnosis at time of Disposition: Respiratory failure Qualifiers: Chronicity: acute Respiratory failure complication: unspecified whether with hypoxia or hypercapnia Qualified Code(s): J96.00 - Acute respiratory failure, unspecified whether with hypoxia or hypercapnia Pneumonia Qualifiers: Pneumonia type: due to unspecified organism Laterality: unspecified laterality Lung location: unspecified part of lung Qualified Code(s): J18.9 - Pneumonia, unspecified organism - Discharge Dispostion Condition at time of disposition: Guarded Decision to Admit order: Yes - Referrals - Patient Instructions - Post Discharge Activity Heart Score/ECG Review #1 ECG reviewed & interpreted by me at: 11:20 08/05/18 12:00 NSR 100, no std/alvaro, TWI III, QTC 492 msec, normal axis, normal intervals
[2018-08-05 11:57] LABS: ALBUMIN 3.4 g/dl (3.4-5.0); ALK PHOS 115 U/L (45-117); ANION GAP 14 MMOL/L (8-16); BILIRUBIN,TOTAL 0.6 mg/dL (0.2-1); BLOOD UREA NITROGEN 8 mg/dL (7-18); CALCIUM 9.2 mg/dL (8.5-10.1); CHLORIDE 107 mmol/L (98-107); CO2 21 mmol/L (21-32); CREATININE 1.1 mg/dL (0.55-1.3); GLUCOSE,RANDOM 265 mg/dL (74-106); POTASSIUM 5.1 mmol/L (3.5-5.1); SGOT/AST 34 U/L (15-37); SGPT/ALT 27 U/L (13-61); SODIUM 143 mmol/L (136-145); TOT PROT 7.9 g/dl (6.4-8.2)
[2018-08-05 12:14] LABS: URINE APPEARANCE SLCLOUDY; URINE BILIRUBIN NEGATIVE (<2.0 mg/dL); URINE COLOR LTYELLOW; URINE GLUCOSE (UA) 3+ (NEGATIVE); URINE KETONE NEGATIVE (NEGATIVE); URINE LEUK ESTERASE 3+ (NEGATIVE); URINE NITRITE NEGATIVE (NEGATIVE); URINE PROTEIN 2+ (NEGATIVE); URINE UROBILINOGEN NEGATIVE mg/dL (0.2-1.0)
[2018-08-05 12:18] LABS: URINE BACTERIA MANY /hpf (NONE SEEN); URINE HYALINE CAST 2 /lpf; URINE MUCUS RARE; YEAST MODERATE
[2018-08-05 12:27] LABS: ARTERIAL BLD GAS O2 SATURATION 95.1 % (90-98.9); ARTERIAL BLOOD GAS BASE EXCESS -3.9 meq/l (-2-2); ARTERIAL BLOOD GAS PCO2 56.3 mmHg (35-45); ARTERIAL BLOOD GAS PO2 94.5 mmHg (80-100); ARTERIAL BLOOD GAS pH 7.24 (7.35-7.45)
[2018-08-05] MEDS ORDERED: SODIUM CHLORIDE 1,000 ML IV STA (12:28)
[2018-08-05 12:32] LABS: ALLENS TEST POSITIVE
[2018-08-05 12:34] LABS: CARBOXYHEMOGLOBIN 0.3 gm% (0.5-2.0)
[2018-08-05] MEDS ORDERED: ALBUTEROL SO4 0.083% IH SOL 2.5 MG/3 ML VIAL.NEB. NEB PRN (13:17)
[2018-08-05] MEDS ORDERED: PANTOPRAZOLE SODIUM 40 MG VIAL IVPUSH SCH (13:30)
[2018-08-05] MEDS ORDERED: MIDAZOLAM 100 MG in SODIUM CHLORIDE 100 ML IVPB SCH (14:00)
[2018-08-05] MEDS ORDERED: MIDAZOLAM 100 MG/100 ML MG IVPB ONE (14:04)
[2018-08-05] MEDS ORDERED: MAGNESIUM SULF 50% (8.12 MEQ/2 ML-1 GM VIAL) IVPB ONE (15:00)
[2018-08-05] MEDS ORDERED: AZITHROMYCIN IVPB 500 MG/250 ML BAG IVPB ONE (15:00)
[2018-08-05] MEDS: HEPARIN NA (PORCINE) 5,000 UNITS/ML 1ML VIAL SQ SCH ×2 (15:18→21:24)
--- NOTE | 2018-08-05 15:26 | CONSULT ---
Consultation: REQUESTING PROVIDER: CONSULT REQUEST: We have been asked to medically evaluate this patient for acute respiratory failure HISTORY OF PRESENT ILLNESS: hx obtained from ED notes and family. pt is intubated and unable to give hx. 57 yo F w/ PMH asthma, HTN, HLD, NIDDM, GERD, CHF, CAD/GA s/p Stent (2000), COPD ? (non-smoker), CVA (with residual Left sided deficit), hysterectomy, p/w acute respiratory failure w/ possible ARDS vs CHF exacerbation. Earlier this morning pt was complaining of difficulty breathing and productive cough and chest pain?/ chest tightness. Pt called 911 and was brought to the ED. EMS noted that she become progressively less responsive en route to the ED. On presentation to the ED, the patient became unresponsive w/ agonal breathing and undetectable oxygen saturation. Pt was then intubated. Initial attempt was made under direct visualization but was unsuccessful. However, the patient was easily baggable. A second attempt with a bougie was attempted with successful intubation. O2 saturations improved with intubation. Post intubation x-ray showed b/l patchy infiltrates possibly consistent with ARDS. Pt was tx as COPD exacerbation with pneumonia. Sepsis w/u initiated and pt given solu-medrol, duonebs, vanc, zosyn. The patient's family arrived and reported that around 1 week ago pt was having similar sxs and went to [facility]. At [facility] on 07/27/2018, had a CTA of the chest which demonstrated no pulmonary embolus, cardiomegaly and multiple hypodense thyroid nodules. The patient was instructed at that time and instructed follow- up with an echocardiogram, Holter monitor and nuclear stress test. That was due for tomorrow at [facility]. afebrile, tachycardia, agonal breathing/RR 7 EKG: NSR 100, no std/alvaro, TWI III, QTC 492 msec, normal axis, normal intervals trop - 0.04 REVIEW OF SYSTEMS: ROS is unobtainable. PHYSICAL EXAMINATION Vital Signs - 24 hr 08/05/18 08/05/18 08/05/18 10:45 10:55 11:13 Temperature Pulse Rate 125 H Pulse Rate [ 121 H Apical] Respiratory 8 L 20 21 H Rate Blood Pressure 135/78 Blood Pressure 134/90 [Right Arm] O2 Sat by Pulse 88 L 100 Oximetry (%) 08/05/18 08/05/18 08/05/18 11:52 11:54 12:24 Temperature 98.5 F 98.5 F Pulse Rate Pulse Rate [ 89 94 H Apical] Respiratory 16 12 Rate Blood Pressure Blood Pressure 108/78 164/98 [Right Arm] O2 Sat by Pulse 97 100 Oximetry (%) 08/05/18 08/05/18 08/05/18 12:58 13:05 13:35 Temperature Pulse Rate Pulse Rate [ 91 H 90 Apical] Respiratory 16 16 14 Rate Blood Pressure Blood Pressure 170/100 138/80 [Right Arm] O2 Sat by Pulse 100 100 Oximetry (%) 08/05/18 13:44 Temperature 97.7 F Pulse Rate 89 Pulse Rate [ Apical] Respiratory 24 H Rate Blood Pressure 126/57 L Blood Pressure [Right Arm] O2 Sat by Pulse Oximetry (%) GENERAL: intubated sedated, responsive HEENT: NCAT PERRLA, sclera anicteric, conjunctiva clear. No lid lag. NECK: supple without lymphadenopathy, JVD, or masses. LUNGS: rhonci b/l HEART: RR tachy, normal S1 and S2 without m/r/g ABDOMEN: Soft, mild distended, NT +BS, no guarding, no rebound, no masses. MUSCULOSKELETAL: Normal range of motion at all joints. No bony deformities or tenderness. UPPER EXTREMITIES: 2+ pulses, warm, well-perfused. No cyanosis. No clubbing. Cap refill <2 seconds. No peripheral edema. LOWER EXTREMITIES: 2+ pulses, warm, well-perfused. No calf tenderness. No peripheral edema. NEUROLOGICAL: unable to assess SKIN: Warm, dry, normal turgor, no rashes or lesions noted. Laboratory Results - last 24 hr 08/05/18 08/05/18 08/05/18 11:00 11:00 11:00 WBC 9.5 RBC 4.92 Hgb 13.0 Hct 41.8 D MCV 85.0 MCH 26.4 MCHC 31.0 L RDW 16.2 H Plt Count 144 MPV 11.2 H Absolute Neuts (auto) 4.1 Neutrophils % 43.3 Lymphocytes % 49.9 H D Monocytes % 4.8 Eosinophils % 0.9 Basophils % 1.1 Nucleated RBC % 0 PT with INR 11.30 INR 0.96 PTT (Actin FS) 30.5 Puncture Site ABG pH ABG pCO2 at Pt Temp ABG pO2 at Pt Temp ABG HCO3 ABG O2 Sat (Measured) ABG O2 Content ABG Base Excess Tim Test VBG pH POC VBG pCO2 POC VBG pO2 Mixed VBG HCO3 Carboxyhemoglobin Methemoglobin O2 Delivery Device Oxygen Flow Rate Vent Rate Mechanical Rate PEEP Pressure Support Vent Sodium Potassium Chloride Carbon Dioxide Anion Gap BUN Creatinine Creat Clearance w eGFR Random Glucose Lactic Acid Calcium Total Bilirubin AST ALT Alkaline Phosphatase Troponin I Total Protein Albumin Urine Color Ltyellow Urine Appearance Slcloudy Urine pH 6.0 Ur Specific [place] 1.007 L Urine Protein 2+ H Urine Glucose (UA) 3+ H Urine Ketones Negative Urine Blood 1+ H Urine Nitrite Negative Urine Bilirubin Negative Urine Urobilinogen Negative Ur Leukocyte Esterase 3+ H D Urine WBC (Auto) 50 Urine RBC (Auto) <1 Urine Bacteria Many Hyaline Casts 2 Urine Mucus Rare Urine Yeast Moderate 08/05/18 08/05/18 08/05/18 11:00 11:00 11:00 WBC RBC Hgb Hct MCV MCH MCHC RDW Plt Count MPV Absolute Neuts (auto) Neutrophils % Lymphocytes % Monocytes % Eosinophils % Basophils % Nucleated RBC % PT with INR INR PTT (Actin FS) Puncture Site ABG pH ABG pCO2 at Pt Temp ABG pO2 at Pt Temp ABG HCO3 ABG O2 Sat (Measured) ABG O2 Content ABG Base Excess Tim Test VBG pH Cancelled POC VBG pCO2 Cancelled POC VBG pO2 Cancelled Mixed VBG HCO3 Cancelled Carboxyhemoglobin Methemoglobin O2 Delivery Device Oxygen Flow Rate Vent Rate Mechanical Rate PEEP Pressure Support Vent Sodium 143 Potassium 5.1 Chloride 107 Carbon Dioxide 21 Anion Gap 14 BUN 8 Creatinine 1.1 Creat Clearance w eGFR 51.20 Random Glucose 265 H Lactic Acid Calcium 9.2 Total Bilirubin 0.6 AST 34 ALT 27 Alkaline Phosphatase 115 Troponin I 0.04 Total Protein 7.9 Albumin 3.4 Urine Color Urine Appearance Urine pH Ur Specific [place] Urine Protein Urine Glucose (UA) Urine Ketones Urine Blood Urine Nitrite Urine Bilirubin Urine Urobilinogen Ur Leukocyte Esterase Urine WBC (Auto) Urine RBC (Auto) Urine Bacteria Hyaline Casts Urine Mucus Urine Yeast 08/05/18 08/05/18 08/05/18 11:30 12:10 12:10 WBC RBC Hgb Hct MCV MCH MCHC RDW Plt Count MPV Absolute Neuts (auto) Neutrophils % Lymphocytes % Monocytes % Eosinophils % Basophils % Nucleated RBC % PT with INR INR PTT (Actin FS) Puncture Site Right radial ABG pH 7.24 L* ABG pCO2 at Pt Temp 56.3 H ABG pO2 at Pt Temp 94.5 ABG HCO3 23.4 ABG O2 Sat (Measured) 95.1 ABG O2 Content 14.4 L ABG Base Excess -3.9 L Tim Test Positive VBG pH POC VBG pCO2 POC VBG pO2 Mixed VBG HCO3 Carboxyhemoglobin 0.3 L Methemoglobin 0.5 O2 Delivery Device Vent Oxygen Flow Rate 100% Vent Rate 10 Mechanical Rate Yes PEEP 0.0 Pressure Support Vent 450 Sodium Potassium Chloride Carbon Dioxide Anion Gap BUN Creatinine Creat Clearance w eGFR Random Glucose Lactic Acid 3.6 H* Calcium Total Bilirubin AST ALT Alkaline Phosphatase Troponin I Total Protein Albumin Urine Color Urine Appearance Urine pH Ur Specific [place] Urine Protein Urine Glucose (UA) Urine Ketones Urine Blood Urine Nitrite Urine Bilirubin Urine Urobilinogen Ur Leukocyte Esterase Urine WBC (Auto) Urine RBC (Auto) Urine Bacteria Hyaline Casts Urine Mucus Urine Yeast Active Medications Generic Name Dose Route Start Last Admin Trade Name Freq PRN Reason Stop Dose Admin Albuterol Sulfate 1 amp 08/05/18 13:17 Ventolin 0.083% Nebulizer Soln - NEB Q4H PRN SHORT OF BREATH/WHEEZING Albuterol/Ipratropium 1 amp 08/05/18 16:00 Duoneb - NEB RQID MINH Chlorhexidine Gluconate 1 applic 08/05/18 22:00 Hibiclens For Decolonization - TP HS MINH Heparin Sodium (Porcine) 5,000 unit 08/05/18 14:00 Heparin - SQ TID MINH Propofol 1,000,000 mcg in 100 mls @ 2.313 mls/hr 08/05/18 11:45 08/05/18 13: 35 Diprivan - IVPB 40 mcg/kg/min TITR MINH 18.507 mls/hr Titration Protocol 5 MCG/KG/MIN Azithromycin 500 mg/ Dextrose 250 mls @ 250 mls/hr 08/06/18 13:26 IVPB 08/06/18 14:25 ONCE ONE Midazolam HCl 100 mg/ Sodium 100 mls @ 1 mls/hr 08/05/18 14:00 Chloride IVPB TITR MINH Protocol 1 MG/HR Magnesium Sulfate 1 gm 08/05/18 13:26 Magnesium Sulfate IVPB 08/05/18 13:27 ONCE ONE Methylprednisolone Sodium Succinate 60 mg 08/05/18 18:00 Solu-Medrol - IVPUSH Q6H-IV MINH Mupirocin 1 applic 08/05/18 22:00 Bactroban Ointment (For Decolonization) - NS 08/10/18 21:59 BID MINH Pantoprazole Sodium 40 mg 08/05/18 13:19 Protonix Iv IVPUSH DAILY [facility] ASSESSMENT/PLAN: 57 yo F w/ PMH asthma, HTN, HLD, NIDDM, GERD, CHF, CAD/GA s/p Stent (2000), COPD ? (non-smoker), CVA (with residual Left sided deficit), hysterectomy, p/w acute respiratory failure 2/2 possible COPD exacerbation with possible pneumonia c/b possible ARDS vs CHF exacerbation. Neuro intubated and sedated CV/PULM/ID acute respiratory failure 2/2 possible COPD exacerbation with possible sepsis 2/ 2 pneumonia/UTI c/b possible ARDS vs CHF exacerbation. pt showing no leukocytosis or fever. Labs w/ UA showing +leuk est and WBCs and elevated lactic acid. As per hx pt has not been sick recently. per family unknown whether pt has COPD (non-smoker), although pt has hx of asthma. Pt has clear hx of cardiac disease and was to be seen at [facility] for echo and stress test. Pt presentation may be consistent w/ CHF/ACS although on PE showing no signs of fluid overload w/ neg trop and no ischemic changes on EKG -on AC, PEEP 8, w/ low tidal volumes as per ARDS protocol -maintain O2 >90% -rpt ABG now -daily CXR/ABG -duonebs standing -albuterol prn -solumedrol -s/p vanc zosyn in ED -Azithromycin to cover for atypicals and help w/ inflammation -ID consult -f/u bcx, ucx, sputum cx, legionella Ag, flu swab -UA shows +leuk est and WBCs -trend lactic acid -f/u BNP -maintain MAP > 65 -cardiac monitoring -echo -rpt trop -no pressors or fluids at this time, pt maintaining good MAP and if in ARDS or CHF would prefer to stay on dry side. -hold home BP meds -Qtc 492, monitor RENAL monitor Cr liu ENDO BGM ISS hold home meds FEN no IVF at this time replete lytes prn NPO ppx SQH protonix Dispo: ICU monitoring We will continue to follow the patient. Thank you for this consultative opportunity. Visit type - Emergency Visit Emergency Visit: Yes ED Registration Date: 08/05/18 Care time: The patient presented to the Emergency Department on the above date and was hospitalized for further evaluation of their emergent condition. - New Patient This patient is new to me today: Yes Date on this admission: 08/05/18 - Critical Care Critical Care patient: Yes Total Critical Care Time (in minutes): 40 Critical Care Statement: The care of this patient involved high complexity decision making to prevent further life threatening deterioration of the patient 's condition and/or to evaluate & treat vital organ system(s) failure or risk of failure.
--- NOTE | 2018-08-05 16:00 | ECHO ---
Name: CECELIA MASON Exam:Adult Echocardiogram Study Date: 08/05/2018 02:12 PM Age: 57 yrs Reason For Study: RESPIRATORY FAILURE BP: 134/84 mmHg MMode/2D Measurements & Calculations IVSd: 0.74 cm Ao root diam: 2.5 cm LVIDd: 5.2 cm LA dimension: 3.8 cm LVIDs: 4.4 cm LVPWd: 0.84 cm EDV(Teich): 129.1 ml ESV(Teich): 88.6 ml Doppler Measurements & Calculations MV E max allen: 47.4 cm/sec MR max allen: 421.8 cm/sec MV A max allen: 39.3 cm/sec MR max P.2 mmHg MV E/A: 1.2 MV dec time: 0.11 sec TR max allen: 230.3 cm/sec Med Peak E' Allen: 3.6 cm/sec TR max P.5 mmHg Med E/e': 13.1 Lat Peak E' Allen: 4.8 cm/sec Lat E/e': 9.9 Procedure A complete two-dimensional transthoracic echocardiogram was performed (2D, M-mode, Doppler and color flow Doppler). Left Ventricle The left ventricle is normal in size. Ejection Fraction = 20-25%. Left ventricular systolic function is severely reduced. There is severe global hypokinesis of the left ventricle. Right Ventricle The right ventricle is normal in size and function. Atria The left atrium is mildly dilated. Right atrial size is normal. Mitral Valve There is mild mitral regurgitation. Tricuspid Valve There is trace tricuspid regurgitation. There was insufficient TR detected to calculate RV systolic p ressure. Aortic Valve No hemodynamically significant valvular aortic stenosis. No aortic regurgitation is present. Pulmonic Valve There is no pulmonic valvular regurgitation. Great Vessels The aortic root is normal size. Pericardium/Pleura There is no pericardial effusion. Interpretation Summary Left ventricular systolic function is severely reduced. There is severe global hypokinesis of the left ventricle. The left ventricle is normal in size. The right ventricle is normal in size and function. The left atrium is mildly dilated. There is mild mitral regurgitation. There is trace tricuspid regurgitation. MD Elijah Lima 08/05/2018 03:59 PM
--- NOTE | 2018-08-05 16:10 | CON.CARD ---
Consult Consult Specialty:: Cardiology Referred by:: ICU Reason for Consultation:: abnormal EKG, resp failure - History of Present Illness Chief Complaint: respiratory failure History of Present Illness: 57F h/o HTN, HLD, DM, CHF (EF not known), CAD, s/p [place] and stent 2000, COPD, CVA p/w acute respiratory failure. patient intubated and sedated, per report patient complained of difficulty breathing, chest pain, cough and called 911. Was unresponsive on arrival, intubated with impoved O2 sat. In the ER received steroids, nebs, IV abx. Had similar symptoms per family report a week ago, was seen at [facility], was advised to have echo, holter and nuclear stress test which were not done yet. - Alcohol/Substance Use Hx Alcohol Use: No History of Substance Use: reports: None - Smoking History Smoking history: Unknown if ever smoked Have you smoked in the past 12 months: No Home Medications - Allergies Allergies/Adverse Reactions: Allergies Allergy/AdvReac Type Severity Reaction Status Date / Time No Known Allergies Allergy Verified 08/05/18 11:06 - Home Medications Home Medications: Ambulatory Orders Aspirin [ASA -] 81 mg PO DAILY 03/14/14 Lisinopril [Prinivil -] 20 mg PO DAILY 10/13/14 Rosuvastatin Calcium [Crestor] 20 mg PO HS 10/13/14 Carvedilol [Coreg -] 12.5 mg PO BID 03/09/17 Albuterol Sulfate Inhaler - [Ventolin HFA Inhaler -] 1 - 2 inh IH Q4H PRN Salmeterol/Fluticasone [Advair 500Mcg/50Mcg -] 1 puff IH DAILY 04/21/17 Insulin Aspart [Novolog] 8 unit SQ TID 05/17/18 Ammonium Lactate Cream [Lac-Hydrin 12% *Cream*] 1 applic TP BID 08/05/18 Glipizide [Glipizide ER] 0 mg PO ASDIR 08/05/18 Insulin Glargine,Hum.rec.anlog [Lantus] 0 unit SQ ASDIR 08/05/18 Spironolactone [Aldactone] 25 mg PO DAILY 08/05/18 Family Disease History - Family Disease History Family History: Unable to Obtain Family Disease History: Heart Disease: Mother (mother's side has "Heart problems "), CA: Father (history of CA on fathers side ) Review of Systems Unable to obtain ROS, reason: intubated, sedated Vital Signs: Vital Signs Temperature 97.7 F 08/05/18 13:44 Pulse Rate 89 08/05/18 13:44 Respiratory Rate 14 08/05/18 14:49 Blood Pressure 126/57 L 08/05/18 13:44 O2 Sat by Pulse Oximetry (%) 100 08/05/18 13:05 Constitutional: Yes: Well Nourished, No Distress Eyes: Yes: Conjunctiva Clear, EOM Intact HENT: Yes: Atraumatic, Normocephalic Neck: Yes: Supple, Trachea Midline Respiratory: Yes: Regular, CTA Bilaterally, Mechanically Ventilated Gastrointestinal: Yes: Normal Bowel Sounds, Soft Cardiovascular: Yes: Regular Rate and Rhythm JVD: No Carotid Bruit: No PMI: Non-Displaced Heart Sounds: Yes: S1, S2 Extremities: No: Cold, Cyanosis Edema: No Peripheral Pulses WNL: Yes Peripheral Pulses: 2+ Left Doralis Pedis, 2+ Right Dorsalis Pedis Neurological: Yes: Other (sedated) Psychiatric: Yes: Other (sedated) - Other Data Labs, Other Data: CBC, BMP 08/05/18 11:00 08/05/18 11:00 INR, PTT INR 0.96 (0.83-1.09) 08/05/18 11:00 Troponin, BNP 08/05/18 11:00 Troponin I 0.04 Troponin, BNP 08/05/18 11:00 Troponin I 0.04 Assessment/Plan echo 07/2018 LV function severely reduced EF 20-25%, severe global hypokinesis of LV, nl RV, mild MR, trace TR CXR: congestive and infiltrative changes EKG: sinus nonspecific ST changes, prolonged QTc 57F h/o HTN, HLD, DM, chronic systolic HF, CAD, s/p NJ and stent 2000, COPD, CVA p/w acute respiratory failure Acute respiratory failure, acute systolic HF - treated with abx, solumedrol, nebs for possible PNA, COPD exac - infectious work up per primary team, ID consulted - echo shows severe LV dysfunction, congestion on CXR suggests acute CHF as etiology - per report pt has h/o CHF, no details available - trop neg x 1 - lasix 40 mg IV ordered,monitor I/O, Cr, daily weights - obtain outpatient records ?ischemic workup, prior EF - on ACEI, BB, and spironolactone at home Abnormal EKG,prolonged QTc - avoid QT prolonging agents - replete for K >4.0, Mg >2.0 - monitoring on tele CAD - h/o NJ and stent 2000 - continue aspirin, statin - trending trop, neg x 1 HTN - holding home meds for low BPs
[2018-08-05] MEDS: ALBUTEROL SO4 2.5/IPRATROPIUM 0.5 INH SOL 3 ML VIAL.NEB. NEB SCH ×2 (16:31→19:13)
[2018-08-05 16:37] LABS: ARTERIAL BLD GAS O2 SATURATION 98.9 % (90-98.9); ARTERIAL BLOOD GAS BASE EXCESS -2.8 meq/l (-2-2); ARTERIAL BLOOD GAS PCO2 51.8 mmHg (35-45); ARTERIAL BLOOD GAS pH 7.28 (7.35-7.45)
[2018-08-05] MEDS: INSULIN SLIDING SCALE (NOVOLOG) 1 VIAL SQ SCH ×2 (16:38→22:10)
[2018-08-05 16:48] LABS: ALLENS TEST POSITIVE
[2018-08-05] MEDS ORDERED: FUROSEMIDE 40 MG/4 ML INJECTABLE VIAL IVPUSH ONE (17:00)
[2018-08-05] MEDS: methylPREDNISolone NA SUCC 40 MG/1 ML VIAL IVPUSH SCH ×2 (17:13→20:53)
--- NOTE | 2018-08-05 17:34 | CON.ID ---
Consult Consult Specialty:: infectious disease Referred by:: hospitalist service Reason for Consultation:: possible pneumonia - History of Present Illness Chief Complaint: 57 yo female admitted from home presented with sob and productive ocugh and chest pain History of Present Illness: sob, productive ocugh and chest pain- intubated in ED had similar presentation at [facility] cxray bilateral infiltrates had appt to f/u with cardiology tomorrow at [facility] sedated - History Source History Provided By: Medical Record Limitations to Obtaining History: Clinical Condition - Past Medical History 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 Cardio/Vascular: Yes: HTN, Hyperlipdemia Pulmonary: Yes: Asthma Endocrine: Yes: Diabetes Mellitus - Past Surgical History Additional Surgical History: stent - Alcohol/Substance Use Hx Alcohol Use: No History of Substance Use: reports: None - Smoking History Smoking history: Unknown if ever smoked Have you smoked in the past 12 months: No Home Medications - Allergies Allergies/Adverse Reactions: Allergies Allergy/AdvReac Type Severity Reaction Status Date / Time No Known Allergies Allergy Verified 08/05/18 11:06 - Home Medications Home Medications: Ambulatory Orders Aspirin [ASA -] 81 mg PO DAILY 03/14/14 Lisinopril [Prinivil -] 20 mg PO DAILY 10/13/14 Rosuvastatin Calcium [Crestor] 20 mg PO HS 10/13/14 Carvedilol [Coreg -] 12.5 mg PO BID 03/09/17 Albuterol Sulfate Inhaler - [Ventolin HFA Inhaler -] 1 - 2 inh IH Q4H PRN Salmeterol/Fluticasone [Advair 500Mcg/50Mcg -] 1 puff IH DAILY 04/21/17 Insulin Aspart [Novolog] 8 unit SQ TID 05/17/18 Ammonium Lactate Cream [Lac-Hydrin 12% *Cream*] 1 applic TP BID 08/05/18 Glipizide [Glipizide ER] 0 mg PO ASDIR 08/05/18 Insulin Glargine,Hum.rec.anlog [Lantus] 0 unit SQ ASDIR 08/05/18 Spironolactone [Aldactone] 25 mg PO DAILY 08/05/18 Family Disease History - Family Disease History Family Disease History: Heart Disease: Mother (mother's side has "Heart problems "), CA: Father (history of CA on fathers side ) Review of Systems Unable to obtain ROS, reason: unable to obtain Physical Exam Vital Signs: Vital Signs Temperature 97.7 F 08/05/18 13:44 Pulse Rate 82 08/05/18 16:31 Respiratory Rate 16 08/05/18 16:31 Blood Pressure 98/62 08/05/18 16:00 O2 Sat by Pulse Oximetry (%) 100 08/05/18 16:31 Constitutional: Yes: Other (sedated) HENT: Yes: Atraumatic, Normocephalic Neck: Yes: Supple, Trachea Midline Cardiovascular: Yes: Regular Rate and Rhythm Respiratory: Yes: Regular, Rales Gastrointestinal: Yes: Normal Bowel Sounds, Soft Edema: No Labs: CBC, BMP 08/05/18 11:00 08/05/18 11:00 Laboratory Tests 08/05/18 11:00 Ur Leukocyte Esterase 3+ H D Urine WBC (Auto) 50 Imaging - Results Chest X-ray: Report Reviewed, Image Reviewed Problem List - Problems (1) Respiratory failure Code(s): J96.90 - RESPIRATORY FAILURE, UNSP, UNSP W HYPOXIA OR HYPERCAPNIA Qualifiers: Chronicity: acute Respiratory failure complication: unspecified whether with hypoxia or hypercapnia Qualified Code(s): J96.00 - Acute respiratory failure, unspecified whether with hypoxia or hypercapnia (2) CHF (congestive heart failure) Code(s): I50.9 - HEART FAILURE, UNSPECIFIED (3) Pneumonia Code(s): J18.9 - PNEUMONIA, UNSPECIFIED ORGANISM Qualifiers: Pneumonia type: due to unspecified organism Laterality: unspecified laterality Lung location: unspecified part of lung Qualified Code(s): J18.9 - Pneumonia, unspecified organism (4) UTI (urinary tract infection) Code(s): N39.0 - URINARY TRACT INFECTION, SITE NOT SPECIFIED Assessment/Plan vancomycin/zosyn and zithromax in ed- recent admission at health system- treat for HAP now being diuresed continue zosyn for pneumonia and UTI f/u cultures in am f/u legionella urinary antigen repeat cxray in am over 45 minutes spent in the care of this critically ill ICU patient
[2018-08-05] MEDS ORDERED: DEXTROSE 5%-WATER 100 ML IVPB ONE (18:05)
[2018-08-05] MEDS ORDERED: PIPERACILLIN/TAZOBACTAM 4.5 GM VIAL IVPB ONE (18:05)
[2018-08-05] MEDS: PIPERACILLIN/TAZOB 4.5 GM 4.5 GM in DEXTROSE 5%-WATER 100 ML IVPB SCH (18:13)
[2018-08-05 18:24] LABS: MAGNESIUM 1.9 mg/dL (1.8-2.4)
[2018-08-05] MEDS: MUPIROCIN 2% TOPICAL OINTMENT FOR DECOLONIZATION NS SCH (21:25)
[2018-08-05] MEDS: CHLORHEXIDINE GLUCONATE 4% CLEANSER FOR DECOLONIZATION TP SCH (22:00)
[2018-08-06] MEDS ORDERED: PIPERACILLIN/TAZOBACTAM 4.5 GM VIAL IVPB ONE ×3 (02:06→17:15)
[2018-08-06] MEDS ORDERED: DEXTROSE 5%-WATER 100 ML IVPB ONE ×3 (02:07→17:15)
[2018-08-06] MEDS: PIPERACILLIN/TAZOB 4.5 GM 4.5 GM in DEXTROSE 5%-WATER 100 ML IVPB SCH ×3 (02:12→17:25)
[2018-08-06] MEDS: methylPREDNISolone NA SUCC 40 MG/1 ML VIAL IVPUSH SCH ×2 (02:13→09:28)
[2018-08-06 06:05] LABS: BASO % 0.2 % (0-2.0); HEMOGLOBIN 11.3 GM/dL (10.7-15.3); LYMPH % 8.2 % (8-40); MCH 25.5 pg (25.7-33.7); MCHC 31.3 g/dl (32.0-36.0); MEAN CELL VOLUME 81.6 fl (80-96); NEUT % 89.6 % (42.8-82.8); PLATELET COUNT 161 K/MM3 (134-434); RBC 4.41 M/mm3 (3.60-5.2); WHITE BLOOD COUNT 16.4 K/mm3 (4.0-10.0)
[2018-08-06] MEDS: FUROSEMIDE 40 MG/4 ML INJECTABLE VIAL IVPUSH SCH ×2 (06:30→14:52)
[2018-08-06] MEDS: HEPARIN NA (PORCINE) 5,000 UNITS/ML 1ML VIAL SQ SCH ×3 (06:30→21:28)
[2018-08-06 06:37] LABS: ARTERIAL BLD GAS O2 SATURATION 98.8 % (90-98.9); ARTERIAL BLOOD GAS BASE EXCESS 2.5 meq/l (-2-2); ARTERIAL BLOOD GAS PCO2 42.9 mmHg (35-45); ARTERIAL BLOOD GAS pH 7.41 (7.35-7.45)
[2018-08-06 06:44] LABS: ALK PHOS 95 U/L (45-117); ANION GAP 8 MMOL/L (8-16); BILIRUBIN,TOTAL 0.8 mg/dL (0.2-1); BLOOD UREA NITROGEN 10 mg/dL (7-18); CALCIUM 8.3 mg/dL (8.5-10.1); CHLORIDE 104 mmol/L (98-107); CO2 28 mmol/L (21-32); CREATININE 0.9 mg/dL (0.55-1.3); GLUCOSE,RANDOM 222 mg/dL (74-106); MAGNESIUM 1.8 mg/dL (1.8-2.4); PHOSPHOROUS 3.1 mg/dL (2.5-4.9); POTASSIUM 3.8 mmol/L (3.5-5.1); SGOT/AST 24 U/L (15-37); SGPT/ALT 29 U/L (13-61); SODIUM 140 mmol/L (136-145); TOT PROT 6.7 g/dl (6.4-8.2)
[2018-08-06 06:47] LABS: ALLENS TEST POSITIVE
[2018-08-06] MEDS: INSULIN SLIDING SCALE (NOVOLOG) 1 VIAL SQ SCH ×4 (06:53→21:47)
--- NOTE | 2018-08-06 07:31 | PN ---
Progress Note, Physician - Current Medication List Current Medications: Active Medications Albuterol Sulfate (Ventolin 0.083% Nebulizer Soln -) 1 amp NEB Q4H PRN PRN Reason: SHORT OF BREATH/WHEEZING Albuterol/Ipratropium (Duoneb -) 1 amp NEB RQID [facility] Last Admin: 08/05/18 19:13 Dose: 1 amp Chlorhexidine Gluconate (Hibiclens For Decolonization -) 1 applic TP HS [facility] Last Admin: 08/05/18 22:00 Dose: 1 applic Furosemide (Lasix Injection -) 40 mg IVPUSH BID@0600,1400 [facility] Last Admin: 08/06/18 06:30 Dose: 40 mg Heparin Sodium (Porcine) (Heparin -) 5,000 unit SQ TID [facility] Last Admin: 08/06/18 06:30 Dose: 5,000 unit Propofol (Diprivan -) 1,000,000 mcg in 100 mls @ 2.313 mls/hr IVPB TITR [facility]; Protocol Last Titration: 08/06/18 03:00 Dose: 20 mcg/kg/min, 9.253 mls/hr Midazolam HCl 100 mg/ Sodium (Chloride) 100 mls @ 1 mls/hr IVPB TITR [facility]; Protocol Last Admin: 08/05/18 14:30 Dose: 2 mg/hr, 2 mls/hr Piperacillin Sod/Tazobactam (Sod 4.5 gm/ Dextrose) 100 mls @ 200 mls/hr IVPB Q8H-IV [facility]; Protocol Last Admin: 08/06/18 02:12 Dose: 200 mls/hr Vancomycin HCl (Vancomycin (Pre-Docked)) 1,000 mg in 250 mls @ 166.667 mls/hr IVPB DAILY@1200 [facility]; Protocol Insulin Aspart (Novolog Vial Sliding Scale -) 1 vial SQ ACHS [facility]; Protocol Last Admin: 08/06/18 06:53 Dose: 2 units Methylprednisolone Sodium Succinate (Solu-Medrol -) 60 mg IVPUSH Q6H-IV [facility] Last Admin: 08/06/18 02:13 Dose: 60 mg Mupirocin (Bactroban Ointment (For Decolonization) -) 1 applic NS BID [facility] Stop: 08/10/18 21:59 Last Admin: 08/05/18 21:25 Dose: 1 applic Pantoprazole Sodium (Protonix Iv) 40 mg IVPUSH DAILY [facility] - Objective Vital Signs: Vital Signs Temperature 98.2 F 08/06/18 06:00 Pulse Rate 88 08/06/18 06:00 Respiratory Rate 16 08/06/18 06:40 Blood Pressure 117/71 08/06/18 06:00 O2 Sat by Pulse Oximetry (%) 100 08/06/18 04:47 Labs: CBC, BMP 08/06/18 05:30 08/06/18 05:30 INR, PTT INR 0.96 (0.83-1.09) 08/05/18 11:00
[2018-08-06] MEDS: ALBUTEROL SO4 2.5/IPRATROPIUM 0.5 INH SOL 3 ML VIAL.NEB. NEB SCH ×4 (07:40→21:10)
--- NOTE | 2018-08-06 07:45 | EKG ---
Test Reason : Blood Pressure : / mmHG Vent. Rate : 100 BPM Atrial Rate : 100 BPM P-R Int : 148 ms QRS Dur : 088 ms QT Int : 382 ms P-R-T Axes : 077 051 -05 degrees QTc Int : 492 ms NORMAL SINUS RHYTHM POSSIBLE LEFT ATRIAL ENLARGEMENT NONSPECIFIC ST ABNORMALITY PROLONGED QT ABNORMAL ECG Confirmed by YANDEL TORRES MD ([id number]) on 08/06/2018 7:44:41 AM Referred By: Confirmed By:YANDEL TORRES MD
[2018-08-06] MEDS ORDERED: MAGNESIUM OXIDE 400 MG TABLET (FP) PO ONE (08:45)
[2018-08-06] MEDS ORDERED: POTASSIUM CHLORIDE TABS 20 MEQ TABLET.ER (FP) PO ONE (08:45)
[2018-08-06] MEDS ORDERED: PT OWN MED DRAWER 7, Y5N ONE ×2 (09:26→21:19)
[2018-08-06] MEDS: ASPIRIN 81 MG CHEWABLE TABLETS PO SCH (09:28)
[2018-08-06] MEDS: PANTOPRAZOLE SODIUM 40 MG VIAL IVPUSH SCH (09:29)
--- NOTE | 2018-08-06 09:32 | PN ---
Progress Note (short form) - Note Progress Note: remains intubated and sedated Vital Signs Period Temp Pulse Resp BP Sys/Jaimes Pulse Ox Last 24 Hr 97.1 F-98.5 F 82-125 8-24 85-170/57-100 88-100 cor-rrr lungs decreased bs at bases abd soft,nt ext no edema CBC, BMP 08/06/18 05:30 08/06/18 05:30 cultures pending Current Medications Albuterol Sulfate (Ventolin 0.083% Nebulizer Soln -) 1 amp NEB Q4H PRN PRN Reason: SHORT OF BREATH/WHEEZING Albuterol/Ipratropium (Duoneb -) 1 amp NEB RQID [facility] Last Admin: 08/06/18 07:40 Dose: 1 amp Aspirin (Asa -) 81 mg PO DAILY [facility] Chlorhexidine Gluconate (Hibiclens For Decolonization -) 1 applic TP HS [facility] Last Admin: 08/05/18 22:00 Dose: 1 applic Furosemide (Lasix Injection -) 40 mg IVPUSH BID@0600,1400 [facility] Last Admin: 08/06/18 06:30 Dose: 40 mg Heparin Sodium (Porcine) (Heparin -) 5,000 unit SQ TID [facility] Last Admin: 08/06/18 06:30 Dose: 5,000 unit Propofol (Diprivan -) 1,000,000 mcg in 100 mls @ 2.313 mls/hr IVPB TITR [facility]; Protocol Last Titration: 08/06/18 03:00 Dose: 20 mcg/kg/min, 9.253 mls/hr Midazolam HCl 100 mg/ Sodium (Chloride) 100 mls @ 1 mls/hr IVPB TITR [facility]; Protocol Last Admin: 08/05/18 14:30 Dose: 2 mg/hr, 2 mls/hr Piperacillin Sod/Tazobactam (Sod 4.5 gm/ Dextrose) 100 mls @ 200 mls/hr IVPB Q8H-IV [facility]; Protocol Last Admin: 08/06/18 02:12 Dose: 200 mls/hr Vancomycin HCl (Vancomycin (Pre-Docked)) 1,000 mg in 250 mls @ 166.667 mls/hr IVPB DAILY@1200 [facility]; Protocol Insulin Aspart (Novolog Vial Sliding Scale -) 1 vial SQ ACHS [facility]; Protocol Last Admin: 08/06/18 06:53 Dose: 2 units Methylprednisolone Sodium Succinate (Solu-Medrol -) 60 mg IVPUSH Q6H-IV [facility] Last Admin: 08/06/18 02:13 Dose: 60 mg Mupirocin (Bactroban Ointment (For Decolonization) -) 1 applic NS BID [facility] Stop: 08/10/18 21:59 Last Admin: 08/05/18 21:25 Dose: 1 applic Pantoprazole Sodium (Protonix Iv) 40 mg IVPUSH DAILY [facility] Rosuvastatin Calcium (Crestor -) 20 mg PO HS [facility] cxray IMPROVED a/p respiratory failure more likely CHF then pneumonia UTI continue vanco/zosyn f/u legionella urinary antigen f/u cultures Problem List - Problems (1) Respiratory failure Code(s): J96.90 - RESPIRATORY FAILURE, UNSP, UNSP W HYPOXIA OR HYPERCAPNIA Qualifiers: Chronicity: acute Respiratory failure complication: unspecified whether with hypoxia or hypercapnia Qualified Code(s): J96.00 - Acute respiratory failure, unspecified whether with hypoxia or hypercapnia (2) CHF (congestive heart failure) Code(s): I50.9 - HEART FAILURE, UNSPECIFIED (3) Pneumonia Code(s): J18.9 - PNEUMONIA, UNSPECIFIED ORGANISM Qualifiers: Pneumonia type: due to unspecified organism Laterality: unspecified laterality Lung location: unspecified part of lung Qualified Code(s): J18.9 - Pneumonia, unspecified organism (4) UTI (urinary tract infection) Code(s): N39.0 - URINARY TRACT INFECTION, SITE NOT SPECIFIED
[2018-08-06] MEDS: MUPIROCIN 2% TOPICAL OINTMENT FOR DECOLONIZATION NS SCH ×2 (09:35→22:00)
--- NOTE | 2018-08-06 11:08 | PN ---
Progress Note (short form) - Note Progress Note: s: no overnight events, remains intubated, sedated o: Vital Signs Temp 98.2 F 08/06/18 06:00 Pulse 88 08/06/18 06:00 Resp 16 08/06/18 08:30 BP 117/71 08/06/18 06:00 Pulse Ox 100 08/06/18 04:47 Intake & Output 08/05/18 08/05/18 08/06/18 11:59 23:59 11:59 Intake Total 55 181.2 Output Total 400 1150 300 Balance -400 -1095 -118.8 Weight 170 lb 182 lb 15.739 oz 175 lb 3.2 oz Intake: IV 55 81.2 DIPRIVAN - 1,000,000 mcg 47 67.2 In 100 ml @ 5 MCG/KG/MIN 2.313 mls/hr IVPB TITR [facility] Rx#:[id number] Versed - 100 mg In Normal 8 14 Saline - 100 ml @ 1 MG/ HR 1 mls/hr IVPB TITR [facility] Rx#:[id number] IVPB 100 Output: Urine 400 1150 300 Son 400 1150 300 Other: Voiding Method Indwelling Catheter Bowel Movement No No Height 5 ft 6 in 5 ft 6 in Body Mass Index (BMI) 27.4 29.5 Weight Measurement Method Built in [facility] Built in [facility] Weight Measurement Method Estimated by Staff Constitutional: Yes: Well Nourished, intubated, sedated Respiratory: Yes: Regular, CTA Bilaterally anteriorly, Mechanically Ventilated Gastrointestinal: Yes: Normal Bowel Sounds, Soft Cardiovascular: Yes: Regular Rate and Rhythm JVD: No Heart Sounds: Yes: S1, S2 Extremities: No: Cold, Cyanosis Edema: No Peripheral Pulses: 2+ Left Doralis Pedis, 2+ Right Dorsalis Pedis Neurological: Yes: Other (sedated) no jaundice diaphoresis Current Medications Generic Name Dose Route Start Last Admin Trade Name Freq PRN Reason Stop Dose Admin Albuterol Sulfate 1 amp 08/05/18 13:17 Ventolin 0.083% Nebulizer Soln - NEB Q4H PRN SHORT OF BREATH/WHEEZING Albuterol/Ipratropium 1 amp 08/05/18 16:00 08/06/18 07:40 Duoneb - NEB 1 amp RQID [facility] Administration Aspirin 81 mg 08/06/18 10:00 08/06/18 09:28 Asa - PO 81 mg DAILY [facility] Administration Chlorhexidine Gluconate 1 applic 08/05/18 22:00 08/05/18 22:00 Hibiclens For Decolonization - TP 1 applic HS [facility] Administration Furosemide 40 mg 08/06/18 06:00 08/06/18 06:30 Lasix Injection - IVPUSH 40 mg BID@0600,1400 [facility] Administration Heparin Sodium (Porcine) 5,000 unit 08/05/18 14:00 08/06/18 06:30 Heparin - SQ 5,000 unit TID [facility] Administration Propofol 1,000,000 mcg in 100 mls @ 2.313 mls/hr 08/05/18 11:45 08/06/18 03: 00 Diprivan - IVPB 20 mcg/kg/min TITR [facility] 9.253 mls/hr Titration Protocol 5 MCG/KG/MIN Midazolam HCl 100 mg/ Sodium 100 mls @ 1 mls/hr 08/05/18 14:00 08/05/18 14:30 Chloride IVPB 2 mg/hr TITR [facility] 2 mls/hr Administration Protocol 1 MG/HR Piperacillin Sod/Tazobactam 100 mls @ 200 mls/hr 08/05/18 18:00 08/06/18 09: 31 Sod 4.5 gm/ Dextrose IVPB 200 mls/hr Q8H-IV [facility] Administration Protocol Vancomycin HCl 1,000 mg in 250 mls @ 166.667 mls/hr 08/06/18 12:00 Vancomycin (Pre-Docked) IVPB DAILY@1200 [facility] Protocol Insulin Aspart 1 vial 08/05/18 16:30 08/06/18 06:53 Novolog Vial Sliding Scale - SQ 2 units ACHS [facility] Administration Protocol Methylprednisolone Sodium Succinate 60 mg 08/05/18 18:00 08/06/18 09:28 Solu-Medrol - IVPUSH 60 mg Q6H-IV [facility] Administration Mupirocin 1 applic 08/05/18 22:00 08/06/18 09:35 Bactroban Ointment (For Decolonization) - NS 08/10/18 21:59 1 applic BID [facility] Administration Pantoprazole Sodium 40 mg 08/05/18 13:19 08/06/18 09:29 Protonix Iv IVPUSH 40 mg DAILY [facility] Administration Rosuvastatin Calcium 20 mg 08/06/18 22:00 Crestor - PO HS [facility] - Other Data Labs, Other Data: Laboratory Last Values WBC 16.4 K/mm3 (4.0-10.0) H 08/06/18 05:30 RBC 4.41 M/mm3 (3.60-5.2) 08/06/18 05:30 Hgb 11.3 GM/dL (10.7-15.3) 08/06/18 05:30 Hct 36.0 % (32.4-45.2) 08/06/18 05:30 MCV 81.6 fl (80-96) 08/06/18 05:30 MCH 25.5 pg (25.7-33.7) L 08/06/18 05:30 MCHC 31.3 g/dl (32.0-36.0) L 08/06/18 05:30 RDW 16.0 % (11.6-15.6) H 08/06/18 05:30 Plt Count 161 K/MM3 (134-434) 08/06/18 05:30 MPV 10.0 fl (7.5-11.1) D 08/06/18 05:30 Absolute Neuts (auto) 14.7 K/mm3 (1.5-8.0) H 08/06/18 05:30 Neutrophils % 89.6 % (42.8-82.8) H D 08/06/18 05:30 Lymphocytes % 8.2 % (8-40) D 08/06/18 05:30 Monocytes % 2.0 % (3.8-10.2) L 08/06/18 05:30 Eosinophils % 0.0 % (0-4.5) D 08/06/18 05:30 Basophils % 0.2 % (0-2.0) 08/06/18 05:30 Nucleated RBC % 0 % (0-0) 08/06/18 05:30 PT with INR 11.30 SEC (9.7-13.0) 08/05/18 11:00 INR 0.96 (0.83-1.09) 08/05/18 11:00 PTT (Actin FS) 30.5 SECONDS (25.2-36.5) 08/05/18 11:00 Puncture Site Right radial 08/06/18 06:25 ABG pH 7.41 (7.35-7.45) 08/06/18 06:25 ABG pCO2 at Pt Temp 42.9 mmHg (35-45) 08/06/18 06:25 ABG pO2 at Pt Temp 139.0 mmHg (80-100) H D 08/06/18 06:25 ABG HCO3 26.9 meq/L (22-26) H 08/06/18 06:25 ABG O2 Sat (Measured) 98.8 % (90-98.9) 08/06/18 06:25 ABG O2 Content 16.2 % vol (15-22) 08/06/18 06:25 ABG Base Excess 2.5 meq/l (-2-2) H 08/06/18 06:25 Tim Test Positive 08/06/18 06:25 VBG pH Cancelled 08/05/18 11:00 POC VBG pCO2 Cancelled 08/05/18 11:00 POC VBG pO2 Cancelled 08/05/18 11:00 Mixed VBG HCO3 Cancelled 08/05/18 11:00 Carboxyhemoglobin 0.3 gm% (0.5-2.0) L 08/05/18 12:10 Methemoglobin 0.5 % (0.4-1.5) 08/05/18 12:10 O2 Delivery Device Vent 08/06/18 06:25 Oxygen Flow Rate 100 08/06/18 06:25 Vent Mode Ak 08/05/18 15:28 Vent Rate 14 08/06/18 06:25 Mechanical Rate Yes 08/05/18 12:10 PEEP 8.0 cmH2O 08/06/18 06:25 Pressure Support Vent 400 08/06/18 06:25 Sodium 140 mmol/L (136-145) 08/06/18 05:30 Potassium 3.8 mmol/L (3.5-5.1) 08/06/18 05:30 Chloride 104 mmol/L (98-107) 08/06/18 05:30 Carbon Dioxide 28 mmol/L (21-32) 08/06/18 05:30 Anion Gap 8 MMOL/L (8-16) 08/06/18 05:30 BUN 10 mg/dL (7-18) 08/06/18 05:30 Creatinine 0.9 mg/dL (0.55-1.3) 08/06/18 05:30 Creat Clearance w eGFR > 60 (>60) 08/06/18 05:30 POC Glucometer 169.38346 UNITS (80-120) 08/06/18 06:35 Random Glucose 222 mg/dL (74-106) H 08/06/18 05:30 Lactic Acid 2.4 mmol/L (0.4-2.0) H* 08/06/18 05:30 Calcium 8.3 mg/dL (8.5-10.1) L 08/06/18 05:30 Phosphorus 3.1 mg/dL (2.5-4.9) 08/06/18 05:30 Magnesium 1.8 mg/dL (1.8-2.4) 08/06/18 05:30 Total Bilirubin 0.8 mg/dL (0.2-1) 08/06/18 05:30 AST 24 U/L (15-37) 08/06/18 05:30 ALT 29 U/L (13-61) 08/06/18 05:30 Alkaline Phosphatase 95 U/L (45-117) 08/06/18 05:30 Troponin I 0.15 ng/ml (0.00-0.05) H 08/05/18 21:05 B-Natriuretic Peptide 1207.6 pg/ml (5-125) H 08/05/18 15:30 Total Protein 6.7 g/dl (6.4-8.2) 08/06/18 05:30 Albumin 3.0 g/dl (3.4-5.0) L 08/06/18 05:30 TSH 0.67 uIU/ml (0.358-3.74) 08/06/18 05:30 Free T4 0.99 ng/dl (0.76-1.46) 08/06/18 05:30 Urine Color Ltyellow 08/05/18 11:00 Urine Appearance Slcloudy 08/05/18 11:00 Urine pH 6.0 (5.0-8.0) 08/05/18 11:00 Ur Specific [place] 1.007 (1.010-1.035) L 08/05/18 11:00 Urine Protein 2+ (NEGATIVE) H 08/05/18 11:00 Urine Glucose (UA) 3+ (NEGATIVE) H 08/05/18 11:00 Urine Ketones Negative (NEGATIVE) 08/05/18 11:00 Urine Blood 1+ (NEGATIVE) H 08/05/18 11:00 Urine Nitrite Negative (NEGATIVE) 08/05/18 11:00 Urine Bilirubin Negative (<2.0 mg/dL) 08/05/18 11:00 Urine Urobilinogen Negative mg/dL (0.2-1.0) 08/05/18 11:00 Ur Leukocyte Esterase 3+ (NEGATIVE) H D 08/05/18 11:00 Urine WBC (Auto) 50 /hpf (3-5) 08/05/18 11:00 Urine RBC (Auto) <1 /hpf (0-3) 08/05/18 11:00 Urine Bacteria Many /hpf (NONE SEEN) 08/05/18 11:00 Hyaline Casts 2 /lpf 08/05/18 11:00 Urine Mucus Rare 08/05/18 11:00 Urine Yeast Moderate 08/05/18 11:00 echo 07/2018 LV function severely reduced EF 20-25%, severe global hypokinesis of LV, nl RV, mild MR, trace TR CXR: better aeration tele: sr EKG: sinus nonspecific ST changes, prolonged QTc est cct 35 mins a/p: 57F h/o HTN, HLD, DM, chronic systolic HF, CAD, s/p NC and stent 2000, COPD, CVA p/w acute respiratory failure Acute respiratory failure, acute systolic HF - treated with abx, solumedrol, nebs for possible PNA, COPD exac - infectious work up per primary team, ID consulted - also getting iv lasix for chf, seems to be most likely etiology of resp failure - cxr improved, wt down, cr stable, cont iv lasix 40 bid. monitor daily chem7, wts. - obtain outpatient records ?ischemic workup, prior EF - on ACEI, BB, and spironolactone at home-->held here for now due to low bp's Abnormal EKG,prolonged QTc - avoid QT prolonging agents - replete for K >4.0, Mg >2.0 - monitoring on tele CAD - h/o NC and stent 2000 - continue aspirin, statin - borderline trops, not c/w acs HTN - holding home meds for low BPs
[2018-08-06] MEDS: PROPOFOL 1,000,000 MCG/100 ML VIAL IVPB SCH (12:09)
[2018-08-06] MEDS: VANCOMYCIN 1 GRAM (PRE-DOCKED) 1,000 MG/250 ML BAG IVPB SCH (12:16)
--- NOTE | 2018-08-06 12:43 | PN ---
Teaching Attending Note Name of Resident: Og Levy ATTENDING PHYSICIAN STATEMENT I saw and evaluated the patient. I reviewed the resident's note and discussed the case with the resident. I agree with the resident's findings and plan as documented. SUBJECTIVE: Patient seen and examined in the ICU. Remains intubated and sedated. AC mode of vent. Down to 60% FiO2 and PEEP 8. No pressors. CXR: improving bilateral pulmonary edema Intake & Output 08/03/18 08/04/18 08/05/18 08/06/18 23:59 23:59 23:59 23:59 Intake Total 55 181.2 Output Total 1550 300 Balance -1495 -118.8 Weight 182 lb 15.739 oz 175 lb 3.2 oz Last Vital Signs Temp Pulse Resp BP Pulse Ox 98.2 F 88 14 117/71 100 08/06/18 06:00 08/06/18 06:00 08/06/18 11:19 08/06/18 06:00 08/06/18 04:47 Active Medications Albuterol Sulfate (Ventolin 0.083% Nebulizer Soln -) 1 amp NEB Q4H PRN PRN Reason: SHORT OF BREATH/WHEEZING Albuterol/Ipratropium (Duoneb -) 1 amp NEB RQID [facility] Last Admin: 08/06/18 12:13 Dose: 1 amp Aspirin (Asa -) 81 mg PO DAILY [facility] Last Admin: 08/06/18 09:28 Dose: 81 mg Chlorhexidine Gluconate (Hibiclens For Decolonization -) 1 applic TP HS [facility] Last Admin: 08/05/18 22:00 Dose: 1 applic Furosemide (Lasix Injection -) 40 mg IVPUSH BID@0600,1400 [facility] Last Admin: 08/06/18 06:30 Dose: 40 mg Heparin Sodium (Porcine) (Heparin -) 5,000 unit SQ TID [facility] Last Admin: 08/06/18 06:30 Dose: 5,000 unit Propofol (Diprivan -) 1,000,000 mcg in 100 mls @ 2.313 mls/hr IVPB TITR [facility]; Protocol Last Admin: 08/06/18 12:09 Dose: 20 mcg/kg/min, 9.253 mls/hr Midazolam HCl 100 mg/ Sodium (Chloride) 100 mls @ 1 mls/hr IVPB TITR [facility]; Protocol Last Admin: 08/05/18 14:30 Dose: 2 mg/hr, 2 mls/hr Piperacillin Sod/Tazobactam (Sod 4.5 gm/ Dextrose) 100 mls @ 200 mls/hr IVPB Q8H-IV [facility]; Protocol Last Admin: 08/06/18 09:31 Dose: 200 mls/hr Vancomycin HCl (Vancomycin (Pre-Docked)) 1,000 mg in 250 mls @ 166.667 mls/hr IVPB DAILY@1200 [facility]; Protocol Last Admin: 08/06/18 12:16 Dose: 166.667 mls/hr Insulin Aspart (Novolog Vial Sliding Scale -) 1 vial SQ ACHS [facility]; Protocol Last Admin: 08/06/18 12:10 Dose: Not Given Methylprednisolone Sodium Succinate (Solu-Medrol -) 60 mg IVPUSH Q6H-IV [facility] Last Admin: 08/06/18 09:28 Dose: 60 mg Mupirocin (Bactroban Ointment (For Decolonization) -) 1 applic NS BID [facility] Stop: 08/10/18 21:59 Last Admin: 08/06/18 09:35 Dose: 1 applic Pantoprazole Sodium (Protonix Iv) 40 mg IVPUSH DAILY [facility] Last Admin: 08/06/18 09:29 Dose: 40 mg Rosuvastatin Calcium (Crestor -) 20 mg PO HS [facility] GENERAL: intubated sedated HEENT: NCAT PERRLA, sclera anicteric, conjunctiva clear. No lid lag. NECK: supple without lymphadenopathy, JVD, or masses. LUNGS: Bilateral rales HEART: RR tachy, normal S1 and S2 without m/r/g ABDOMEN: Soft, mild distended, NT +BS, no guarding, no rebound, no masses. MUSCULOSKELETAL: Normal range of motion at all joints. No bony deformities or tenderness. UPPER EXTREMITIES: 2+ pulses, warm, well-perfused. No cyanosis. No clubbing. Cap refill <2 seconds. No peripheral edema. LOWER EXTREMITIES: 2+ pulses, warm, well-perfused. No calf tenderness. No peripheral edema. NEUROLOGICAL: sedated SKIN: Warm, dry, normal turgor, no rashes or lesions noted. Laboratory Results - last 24 hr 08/05/18 08/05/18 08/05/18 11:00 15:20 15:28 WBC RBC Hgb Hct MCV MCH MCHC RDW Plt Count MPV Absolute Neuts (auto) Neutrophils % Lymphocytes % Monocytes % Eosinophils % Basophils % Nucleated RBC % Puncture Site Right radial ABG pH 7.28 L ABG pCO2 at Pt Temp 51.8 H ABG pO2 at Pt Temp 199.0 H* ABG HCO3 23.8 ABG O2 Sat (Measured) 98.9 ABG O2 Content 16.4 ABG Base Excess -2.8 L Tim Test Positive O2 Delivery Device Oxygen Flow Rate Yes Vent Mode Ak Vent Rate 400 PEEP 8.0 Pressure Support Vent Sodium 143 Potassium 5.1 Chloride 107 Carbon Dioxide 21 Anion Gap 14 BUN 8 Creatinine 1.1 Creat Clearance w eGFR 51.20 POC Glucometer Random Glucose 265 H Lactic Acid Calcium 9.2 Phosphorus 4.0 Magnesium 1.9 Total Bilirubin 0.6 AST 34 ALT 27 Alkaline Phosphatase 115 Troponin I 0.27 H B-Natriuretic Peptide Total Protein 7.9 Albumin 3.4 TSH Free T4 08/05/18 08/05/18 08/05/18 15:30 15:30 16:37 WBC RBC Hgb Hct MCV MCH MCHC RDW Plt Count MPV Absolute Neuts (auto) Neutrophils % Lymphocytes % Monocytes % Eosinophils % Basophils % Nucleated RBC % Puncture Site ABG pH ABG pCO2 at Pt Temp ABG pO2 at Pt Temp ABG HCO3 ABG O2 Sat (Measured) ABG O2 Content ABG Base Excess Tim Test O2 Delivery Device Oxygen Flow Rate Vent Mode Vent Rate PEEP Pressure Support Vent Sodium Potassium Chloride Carbon Dioxide Anion Gap BUN Creatinine Creat Clearance w eGFR POC Glucometer [phone] Random Glucose Lactic Acid 2.5 H* Calcium Phosphorus Magnesium Total Bilirubin AST ALT Alkaline Phosphatase Troponin I B-Natriuretic Peptide 1207.6 H Total Protein Albumin TSH Free T4 08/05/18 08/05/18 08/05/18 21:05 21:05 21:13 WBC RBC Hgb Hct MCV MCH MCHC RDW Plt Count MPV Absolute Neuts (auto) Neutrophils % Lymphocytes % Monocytes % Eosinophils % Basophils % Nucleated RBC % Puncture Site ABG pH ABG pCO2 at Pt Temp ABG pO2 at Pt Temp ABG HCO3 ABG O2 Sat (Measured) ABG O2 Content ABG Base Excess Tim Test O2 Delivery Device Oxygen Flow Rate Vent Mode Vent Rate PEEP Pressure Support Vent Sodium Potassium Chloride Carbon Dioxide Anion Gap BUN Creatinine Creat Clearance w eGFR POC Glucometer [phone] Random Glucose Lactic Acid 3.0 H* Calcium Phosphorus Magnesium Total Bilirubin AST ALT Alkaline Phosphatase Troponin I 0.15 H B-Natriuretic Peptide Total Protein Albumin TSH Free T4 08/06/18 08/06/18 08/06/18 00:45 04:02 05:30 WBC 16.4 H RBC 4.41 Hgb 11.3 Hct 36.0 MCV 81.6 MCH 25.5 L MCHC 31.3 L RDW 16.0 H Plt Count 161 MPV 10.0 D Absolute Neuts (auto) 14.7 H Neutrophils % 89.6 H D Lymphocytes % 8.2 D Monocytes % 2.0 L Eosinophils % 0.0 D Basophils % 0.2 Nucleated RBC % 0 Puncture Site ABG pH ABG pCO2 at Pt Temp ABG pO2 at Pt Temp ABG HCO3 ABG O2 Sat (Measured) ABG O2 Content ABG Base Excess Tim Test O2 Delivery Device Oxygen Flow Rate Vent Mode Vent Rate PEEP Pressure Support Vent Sodium Potassium Chloride Carbon Dioxide Anion Gap BUN Creatinine Creat Clearance w eGFR POC Glucometer [phone] Random Glucose Lactic Acid 2.9 H* Calcium Phosphorus Magnesium Total Bilirubin AST ALT Alkaline Phosphatase Troponin I B-Natriuretic Peptide Total Protein Albumin TSH Free T4 08/06/18 08/06/18 08/06/18 05:30 05:30 05:30 WBC RBC Hgb Hct MCV MCH MCHC RDW Plt Count MPV Absolute Neuts (auto) Neutrophils % Lymphocytes % Monocytes % Eosinophils % Basophils % Nucleated RBC % Puncture Site ABG pH ABG pCO2 at Pt Temp ABG pO2 at Pt Temp ABG HCO3 ABG O2 Sat (Measured) ABG O2 Content ABG Base Excess Tim Test O2 Delivery Device Oxygen Flow Rate Vent Mode Vent Rate PEEP Pressure Support Vent Sodium 140 Potassium 3.8 Chloride 104 Carbon Dioxide 28 Anion Gap 8 BUN 10 Creatinine 0.9 Creat Clearance w eGFR > 60 POC Glucometer Random Glucose 222 H Lactic Acid 2.4 H* Calcium 8.3 L Phosphorus 3.1 Magnesium 1.8 Total Bilirubin 0.8 AST 24 ALT 29 Alkaline Phosphatase 95 Troponin I B-Natriuretic Peptide Total Protein 6.7 Albumin 3.0 L TSH 0.67 Free T4 0.99 08/06/18 08/06/18 06:25 06:35 WBC RBC Hgb Hct MCV MCH MCHC RDW Plt Count MPV Absolute Neuts (auto) Neutrophils % Lymphocytes % Monocytes % Eosinophils % Basophils % Nucleated RBC % Puncture Site Right radial ABG pH 7.41 ABG pCO2 at Pt Temp 42.9 ABG pO2 at Pt Temp 139.0 H D ABG HCO3 26.9 H ABG O2 Sat (Measured) 98.8 ABG O2 Content 16.2 ABG Base Excess 2.5 H Tim Test Positive O2 Delivery Device Vent Oxygen Flow Rate 100 Vent Mode Vent Rate 14 PEEP 8.0 Pressure Support Vent 400 Sodium Potassium Chloride Carbon Dioxide Anion Gap BUN Creatinine Creat Clearance w eGFR POC Glucometer [phone] Random Glucose Lactic Acid Calcium Phosphorus Magnesium Total Bilirubin AST ALT Alkaline Phosphatase Troponin I B-Natriuretic Peptide Total Protein Albumin TSH Free T4 ASSESSMENT/PLAN: Acute Respiratory Failure due to APE: etiology unclear Asthma HTN HLD NIDDM GERD CHF CAD History of AMI S/P PCI 2000 (?) COPD CVA with residual Left sided deficit History of hysterectomy R/O PNA Lasix ABX coverage Enteral feeds VTE prophylaxis BD TX Follow cultures Strict I & O Hope to extubate in the next 1 to [address] Zimmerman - Critical Care Critical Care patient: Yes Total Critical Care Time (in minutes): 40 Critical Care Statement: The care of this patient involved high complexity decision making to prevent further life threatening deterioration of the patient 's condition and/or to evaluate & treat vital organ system(s) failure or risk of failure.
--- NOTE | 2018-08-06 13:40 | EKG ---
Test Reason : Blood Pressure : / mmHG Vent. Rate : 089 BPM Atrial Rate : 089 BPM P-R Int : 146 ms QRS Dur : 098 ms QT Int : 386 ms P-R-T Axes : 072 035 005 degrees QTc Int : 469 ms NORMAL SINUS RHYTHM WITH SINUS ARRHYTHMIA MINIMAL VOLTAGE CRITERIA FOR LVH, MAY BE NORMAL VARIANT T WAVE ABNORMALITY, CONSIDER ANTERIOR ISCHEMIA PROLONGED QT ABNORMAL ECG Confirmed by YANDEL TORRES MD ([id number]) on 08/06/2018 1:40:26 PM Referred By: DIRK BEAUCHAMP DR Confirmed By:YANDEL TORRES MD
--- NOTE | 2018-08-06 16:00 | PN ---
Physical Exam: SUBJECTIVE: Patient seen and examined in the ICU. pt was weaned throughout the day, tolerated CPAP trial and now successfully extubated. pt on venti mask and breathing comfortably w/ O2 sat >90%. consent for med record release obtained and faxed to [facility]. OBJECTIVE: Vital Signs Period Temp Pulse Resp BP Sys/Jaimes Pulse Ox Last 24 Hr 97.1 F-98.2 F 82-99 14-24 85-138/59-77 100-100 GENERAL: AOX3 NAD on venti mask HEENT: NCAT PERRLA, sclera anicteric, conjunctiva clear. No lid lag. NECK: supple without lymphadenopathy, JVD, or masses. LUNGS: rhonci b/l improved HEART: RR tachy, normal S1 and S2 without m/r/g ABDOMEN: Soft, NDNT +BS, no guarding, no rebound, no masses. MUSCULOSKELETAL: Normal range of motion at all joints. No bony deformities or tenderness. UPPER EXTREMITIES: 2+ pulses, warm, well-perfused. No cyanosis. No clubbing. Cap refill <2 seconds. No peripheral edema. LOWER EXTREMITIES: 2+ pulses, warm, well-perfused. No calf tenderness. No peripheral edema. NEUROLOGICAL: AOX3 sensation and strength grossly intact SKIN: Warm, dry, normal turgor, no rashes or lesions noted. Laboratory Results - last 24 hr 08/05/18 08/05/18 08/05/18 11:00 15:20 15:28 WBC RBC Hgb Hct MCV MCH MCHC RDW Plt Count MPV Absolute Neuts (auto) Neutrophils % Lymphocytes % Monocytes % Eosinophils % Basophils % Nucleated RBC % Puncture Site Right radial ABG pH 7.28 L ABG pCO2 at Pt Temp 51.8 H ABG pO2 at Pt Temp 199.0 H* ABG HCO3 23.8 ABG O2 Sat (Measured) 98.9 ABG O2 Content 16.4 ABG Base Excess -2.8 L Tim Test Positive O2 Delivery Device Oxygen Flow Rate Yes Vent Mode Ak Vent Rate 400 PEEP 8.0 Pressure Support Vent Sodium Potassium Chloride Carbon Dioxide Anion Gap BUN Creatinine Creat Clearance w eGFR POC Glucometer Random Glucose Lactic Acid Calcium Phosphorus 4.0 Magnesium 1.9 Total Bilirubin AST ALT Alkaline Phosphatase Troponin I 0.27 H B-Natriuretic Peptide Total Protein Albumin TSH Free T4 08/05/18 08/05/18 08/05/18 15:30 15:30 16:37 WBC RBC Hgb Hct MCV MCH MCHC RDW Plt Count MPV Absolute Neuts (auto) Neutrophils % Lymphocytes % Monocytes % Eosinophils % Basophils % Nucleated RBC % Puncture Site ABG pH ABG pCO2 at Pt Temp ABG pO2 at Pt Temp ABG HCO3 ABG O2 Sat (Measured) ABG O2 Content ABG Base Excess Tim Test O2 Delivery Device Oxygen Flow Rate Vent Mode Vent Rate PEEP Pressure Support Vent Sodium Potassium Chloride Carbon Dioxide Anion Gap BUN Creatinine Creat Clearance w eGFR POC Glucometer 115.64049 Random Glucose Lactic Acid 2.5 H* Calcium Phosphorus Magnesium Total Bilirubin AST ALT Alkaline Phosphatase Troponin I B-Natriuretic Peptide 1207.6 H Total Protein Albumin TSH Free T4 08/05/18 08/05/18 08/05/18 21:05 21:05 21:13 WBC RBC Hgb Hct MCV MCH MCHC RDW Plt Count MPV Absolute Neuts (auto) Neutrophils % Lymphocytes % Monocytes % Eosinophils % Basophils % Nucleated RBC % Puncture Site ABG pH ABG pCO2 at Pt Temp ABG pO2 at Pt Temp ABG HCO3 ABG O2 Sat (Measured) ABG O2 Content ABG Base Excess Tim Test O2 Delivery Device Oxygen Flow Rate Vent Mode Vent Rate PEEP Pressure Support Vent Sodium Potassium Chloride Carbon Dioxide Anion Gap BUN Creatinine Creat Clearance w eGFR POC Glucometer 324.89446 Random Glucose Lactic Acid 3.0 H* Calcium Phosphorus Magnesium Total Bilirubin AST ALT Alkaline Phosphatase Troponin I 0.15 H B-Natriuretic Peptide Total Protein Albumin TSH Free T4 08/06/18 08/06/18 08/06/18 00:45 04:02 05:30 WBC 16.4 H RBC 4.41 Hgb 11.3 Hct 36.0 MCV 81.6 MCH 25.5 L MCHC 31.3 L RDW 16.0 H Plt Count 161 MPV 10.0 D Absolute Neuts (auto) 14.7 H Neutrophils % 89.6 H D Lymphocytes % 8.2 D Monocytes % 2.0 L Eosinophils % 0.0 D Basophils % 0.2 Nucleated RBC % 0 Puncture Site ABG pH ABG pCO2 at Pt Temp ABG pO2 at Pt Temp ABG HCO3 ABG O2 Sat (Measured) ABG O2 Content ABG Base Excess Tim Test O2 Delivery Device Oxygen Flow Rate Vent Mode Vent Rate PEEP Pressure Support Vent Sodium Potassium Chloride Carbon Dioxide Anion Gap BUN Creatinine Creat Clearance w eGFR POC Glucometer 263.56377 Random Glucose Lactic Acid 2.9 H* Calcium Phosphorus Magnesium Total Bilirubin AST ALT Alkaline Phosphatase Troponin I B-Natriuretic Peptide Total Protein Albumin TSH Free T4 08/06/18 08/06/18 08/06/18 05:30 05:30 05:30 WBC RBC Hgb Hct MCV MCH MCHC RDW Plt Count MPV Absolute Neuts (auto) Neutrophils % Lymphocytes % Monocytes % Eosinophils % Basophils % Nucleated RBC % Puncture Site ABG pH ABG pCO2 at Pt Temp ABG pO2 at Pt Temp ABG HCO3 ABG O2 Sat (Measured) ABG O2 Content ABG Base Excess Tim Test O2 Delivery Device Oxygen Flow Rate Vent Mode Vent Rate PEEP Pressure Support Vent Sodium 140 Potassium 3.8 Chloride 104 Carbon Dioxide 28 Anion Gap 8 BUN 10 Creatinine 0.9 Creat Clearance w eGFR > 60 POC Glucometer Random Glucose 222 H Lactic Acid 2.4 H* Calcium 8.3 L Phosphorus 3.1 Magnesium 1.8 Total Bilirubin 0.8 AST 24 ALT 29 Alkaline Phosphatase 95 Troponin I B-Natriuretic Peptide Total Protein 6.7 Albumin 3.0 L TSH 0.67 Free T4 0.99 08/06/18 08/06/18 08/06/18 06:25 06:35 12:15 WBC RBC Hgb Hct MCV MCH MCHC RDW Plt Count MPV Absolute Neuts (auto) Neutrophils % Lymphocytes % Monocytes % Eosinophils % Basophils % Nucleated RBC % Puncture Site Right radial ABG pH 7.41 ABG pCO2 at Pt Temp 42.9 ABG pO2 at Pt Temp 139.0 H D ABG HCO3 26.9 H ABG O2 Sat (Measured) 98.8 ABG O2 Content 16.2 ABG Base Excess 2.5 H Tim Test Positive O2 Delivery Device Vent Oxygen Flow Rate 100 Vent Mode Vent Rate 14 PEEP 8.0 Pressure Support Vent 400 Sodium Potassium Chloride Carbon Dioxide Anion Gap BUN Creatinine Creat Clearance w eGFR POC Glucometer 169.48309 Random Glucose Lactic Acid 3.3 H* Calcium Phosphorus Magnesium Total Bilirubin AST ALT Alkaline Phosphatase Troponin I B-Natriuretic Peptide Total Protein Albumin TSH Free T4 Active Medications Generic Name Dose Route Start Last Admin Trade Name Freq PRN Reason Stop Dose Admin Albuterol Sulfate 1 amp 08/05/18 13:17 Ventolin 0.083% Nebulizer Soln - NEB Q4H PRN SHORT OF BREATH/WHEEZING Albuterol/Ipratropium 1 amp 08/05/18 16:00 08/06/18 12:13 Duoneb - NEB 1 amp RQID [facility] Administration Aspirin 81 mg 08/06/18 10:00 08/06/18 09:28 Asa - PO 81 mg DAILY [facility] Administration Chlorhexidine Gluconate 1 applic 08/05/18 22:00 08/05/18 22:00 Hibiclens For Decolonization - TP 1 applic HS [facility] Administration Furosemide 40 mg 08/06/18 06:00 08/06/18 14:52 Lasix Injection - IVPUSH 40 mg BID@0600,1400 [facility] Administration Heparin Sodium (Porcine) 5,000 unit 08/05/18 14:00 08/06/18 14:52 Heparin - SQ 5,000 unit TID [facility] Administration Propofol 1,000,000 mcg in 100 mls @ 2.313 mls/hr 08/05/18 11:45 08/06/18 12: 09 Diprivan - IVPB 20 mcg/kg/min TITR [facility] 9.253 mls/hr Administration Protocol 5 MCG/KG/MIN Midazolam HCl 100 mg/ Sodium 100 mls @ 1 mls/hr 08/05/18 14:00 08/05/18 14:30 Chloride IVPB 2 mg/hr TITR [facility] 2 mls/hr Administration Protocol 1 MG/HR Piperacillin Sod/Tazobactam 100 mls @ 200 mls/hr 08/05/18 18:00 08/06/18 09: 31 Sod 4.5 gm/ Dextrose IVPB 200 mls/hr Q8H-IV [facility] Administration Protocol Vancomycin HCl 1,000 mg in 250 mls @ 166.667 mls/hr 08/06/18 12:00 08/06/18 12:16 Vancomycin (Pre-Docked) IVPB 166.667 mls/hr DAILY@1200 [facility] Administration Protocol Insulin Aspart 1 vial 08/05/18 16:30 08/06/18 12:10 Novolog Vial Sliding Scale - SQ Not Given ACHS [facility] Protocol Mupirocin 1 applic 08/05/18 22:00 08/06/18 09:35 Bactroban Ointment (For Decolonization) - NS 08/10/18 21:59 1 applic BID [facility] Administration Pantoprazole Sodium 40 mg 08/05/18 13:19 08/06/18 09:29 Protonix Iv IVPUSH 40 mg DAILY [facility] Administration Rosuvastatin Calcium 20 mg 08/06/18 22:00 Crestor - PO HS [facility] ASSESSMENT/PLAN: 57 yo F w/ PMH asthma, HTN, HLD, NIDDM, GERD, CHF, CAD/HI s/p Stent (2000), COPD ? (non-smoker), CVA (with residual Left sided deficit), hysterectomy, p/w acute respiratory failure 2/2 acute pulmonary edema, etiology unclear: possible COPD exacerbation with possible sepsis 2/2 pneumonia/UTI c/b possible ARDS vs CHF exacerbation in the setting of UTI.. pt was weaned throughout the day, tolerated CPAP trial and now successfully extubated. pt on venti mask and breathing comfortably w/ O2 sat >90%. consent for med record release obtained and faxed to [facility]. Neuro intact. extubated CV/PULM/ID acute respiratory failure 2/2 acute pulmonary edema, etiology unclear: possible COPD exacerbation with possible sepsis 2/2 pneumonia/UTI c/b possible ARDS vs CHF exacerbation in the setting of UTI. pt w/o leukocytosis or fever. Labs w/ Ucx growing neg lac bacilli and elevated lactic acid. As per hx pt has not been sick recently. per family unknown whether pt has COPD (non-smoker), although pt has hx of asthma. Pt has clear hx of cardiac disease and was to be seen at [facility] for echo and stress test. Pt presentation may be consistent w/ CHF although on PE showing no signs of fluid overload. ACS less likely w/ no ischemic changes on EKG and borderline trops not c/w acs -on venti mask s/p extubation -maintain O2 >90%, bipap or high flow if necessary -ABG improved -duonebs standing -albuterol prn -solumedrol -CXR: better aeration today -c/w vanc zosyn per ID -received one dose Azithromycin to cover for atypicals and help w/ inflammation -ID consult -bcx, legionella Ag, neg -ucx growing neg lac bacilli -UA shows +leuk est and WBCs -trend lactic acid -BNP 1200 -maintain MAP > 65 -cardiac monitoring -echo 07/2018 LV function severely reduced EF 20-25%, severe global hypokinesis of LV, nl RV, mild MR, trace TR -borderline trops not c/w acs -no pressors or fluids at this time, pt maintaining good MAP and if in ARDS or CHF would prefer to stay on dry side. -lasix bid per cardio, pt improving, cxr improving -hold home BP meds -Qtc 492, monitor RENAL -monitor Cr -liu -lasix bid per cardio, pt improving, cxr improving ENDO BGM ISS hold home meds FEN no IVF at this time replete lytes prn NPO, will advance if maintains O2 on venti mask ppx SQH protonix Dispo: ICU monitoring s/p extubation on venti mask consent for med record release obtained and faxed to [facility]. Visit type - Emergency Visit Emergency Visit: Yes ED Registration Date: 08/05/18 Care time: The patient presented to the Emergency Department on the above date and was hospitalized for further evaluation of their emergent condition. - New Patient This patient is new to me today: Yes Date on this admission: 08/06/18 - Critical Care Critical Care patient: Yes Total Critical Care Time (in minutes): 40 Critical Care Statement: The care of this patient involved high complexity decision making to prevent further life threatening deterioration of the patient 's condition and/or to evaluate & treat vital organ system(s) failure or risk of failure.
--- NOTE | 2018-08-06 16:14 | HP ---
Admitting History and Physical - Primary Care Physician PCP: Zena Gandara - Admission Chief Complaint: UNRESPINSIVE AT HOME/SYNCOPE/RESPIRATORY DISTRESS History of Present Illness: 57F h/o HTN, HLD, DM, CHF (EF not known), CAD, s/p CA and stent 2000, COPD, CVA p/w acute respiratory failure. patient intubated and sedated, per report patient complained of difficulty breathing, chest pain, cough and called 911. Was unresponsive on arrival, intubated with impoved O2 sat. In the ER received steroids, nebs, IV abx. Had similar symptoms per family report a week ago, was seen at [facility], was advised to have echo, holter and nuclear stress test which were not done yet. History Source: Medical Record Limitations to Obtaining History: Clinical Condition, Unresponsive - Past Medical History [employer]: Yes: CVA Cardiovascular: Yes: HTN, Hyperlipdemia Pulmonary: Yes: Asthma Endocrine: Yes: Diabetes Mellitus - Smoking History Smoking history: Unknown if ever smoked Have you smoked in the past 12 months: No - Alcohol/Substance Use Hx Alcohol Use: No History of Substance Use: reports: None Home Medications - Allergies Allergies/Adverse Reactions: Allergies Allergy/AdvReac Type Severity Reaction Status Date / Time No Known Allergies Allergy Verified 08/05/18 11:06 - Home Medications Home Medications: Ambulatory Orders Aspirin [ASA -] 81 mg PO DAILY 03/14/14 Lisinopril [Prinivil -] 20 mg PO DAILY 10/13/14 Rosuvastatin Calcium [Crestor] 20 mg PO HS 10/13/14 Carvedilol [Coreg -] 12.5 mg PO BID 03/09/17 Albuterol Sulfate Inhaler - [Ventolin HFA Inhaler -] 1 - 2 inh IH Q4H PRN Salmeterol/Fluticasone [Advair 500Mcg/50Mcg -] 1 puff IH DAILY 04/21/17 Insulin Aspart [Novolog] 8 unit SQ TID 05/17/18 Ammonium Lactate Cream [Lac-Hydrin 12% *Cream*] 1 applic TP BID 08/05/18 Glipizide [Glipizide ER] 0 mg PO ASDIR 08/05/18 Insulin Glargine,Hum.rec.anlog [Lantus] 0 unit SQ ASDIR 08/05/18 Spironolactone [Aldactone] 25 mg PO DAILY 08/05/18 Family Disease History - Family Disease History Family Disease History: Heart Disease: Mother (mother's side has "Heart problems "), CA: Father (history of CA on fathers side ) Review of Systems - Review of Systems Constitutional: reports: Weakness Cardiovascular: reports: Shortness of Breath Respiratory: reports: SOB Gastrointestinal: reports: No Symptoms Genitourinary: reports: Other Musculoskeletal: reports: Muscle Weakness Neurological: reports: Weakness Endocrine: reports: Other Hematology/Lymphatic: reports: Other Psychiatric: reports: Other Physical Examination Vital Signs: Vital Signs Temperature 98.1 F 08/06/18 10:00 Pulse Rate 99 H 08/06/18 14:00 Respiratory Rate 18 08/06/18 14:00 Blood Pressure 123/76 08/06/18 14:00 O2 Sat by Pulse Oximetry (%) 100 08/06/18 04:47 Constitutional: Yes: Moderate Distress Eyes: Yes: WNL HENT: Yes: WNL Neck: Yes: WNL Cardiovascular: Yes: Regular Rate and Rhythm Respiratory: Yes: Mechanically Ventilated Gastrointestinal: Yes: Normal Bowel Sounds, Soft, Other Musculoskeletal: Yes: Muscle Weakness Extremities: Yes: Other Edema: No Peripheral Pulses WNL: Yes Integumentary: Yes: Other Wound/Incision: Yes: Other Neurological: Yes: Other Psychiatric: Yes: Other Labs: CBC, BMP 08/06/18 05:30 08/06/18 05:30 Imaging - Results Chest X-ray: Report Reviewed Cat Scan: Pending Problem List - Problems (1) CHF (congestive heart failure) Code(s): I50.9 - HEART FAILURE, UNSPECIFIED (2) Pneumonia Code(s): J18.9 - PNEUMONIA, UNSPECIFIED ORGANISM Qualifiers: Pneumonia type: due to unspecified organism Laterality: unspecified laterality Lung location: unspecified part of lung Qualified Code(s): J18.9 - Pneumonia, unspecified organism (3) Respiratory failure Code(s): J96.90 - RESPIRATORY FAILURE, UNSP, UNSP W HYPOXIA OR HYPERCAPNIA Qualifiers: Chronicity: acute Respiratory failure complication: unspecified whether with hypoxia or hypercapnia Qualified Code(s): J96.00 - Acute respiratory failure, unspecified whether with hypoxia or hypercapnia (4) UTI (urinary tract infection) Code(s): N39.0 - URINARY TRACT INFECTION, SITE NOT SPECIFIED (5) Asthma attack Code(s): J45.901 - UNSPECIFIED ASTHMA WITH (ACUTE) EXACERBATION Qualifiers: Asthma severity: mild Asthma persistence: unspecified Qualified Code(s): J45.901 - Unspecified asthma with (acute) exacerbation Assessment/Plan ICU CRITICAL CARE INTUBATED ON VENT SUPPORT NEBS PULM/CARDIO CONSULT WEAN OFF VENT TOLERATED DVT PROPHYLAXIS NEURO EVAL
[2018-08-06] MEDS ORDERED: ROSUVASTATIN CA 20 MG TABLET (FP) PO SCH (22:00)
[2018-08-06] MEDS: CHLORHEXIDINE GLUCONATE 4% CLEANSER FOR DECOLONIZATION TP SCH (22:20)
[2018-08-07] MEDS ORDERED: PIPERACILLIN/TAZOBACTAM 4.5 GM VIAL IVPB ONE ×3 (01:06→17:22)
[2018-08-07] MEDS ORDERED: DEXTROSE 5%-WATER 100 ML IVPB ONE ×3 (01:07→17:22)
[2018-08-07] MEDS: PIPERACILLIN/TAZOB 4.5 GM 4.5 GM in DEXTROSE 5%-WATER 100 ML IVPB SCH ×3 (01:31→17:37)
[2018-08-07] MEDS: FUROSEMIDE 40 MG/4 ML INJECTABLE VIAL IVPUSH SCH ×2 (05:53→14:18)
[2018-08-07] MEDS: HEPARIN NA (PORCINE) 5,000 UNITS/ML 1ML VIAL SQ SCH ×3 (05:53→22:30)
[2018-08-07 06:14] LABS: BASO % 0.1 % (0-2.0); HEMOGLOBIN 10.9 GM/dL (10.7-15.3); LYMPH % 12.7 % (8-40); MCH 25.3 pg (25.7-33.7); MCHC 31.1 g/dl (32.0-36.0); MEAN CELL VOLUME 81.4 fl (80-96); MEAN PLT VOLUME 10.4 fl (7.5-11.1); MONO % 6.3 % (3.8-10.2); NEUT % 80.9 % (42.8-82.8); PLATELET COUNT 159 K/MM3 (134-434); RDW 15.9 % (11.6-15.6); WHITE BLOOD COUNT 16.8 K/mm3 (4.0-10.0)
[2018-08-07 06:37] LABS: ALK PHOS 86 U/L (45-117); ANION GAP 7 MMOL/L (8-16); BILIRUBIN,TOTAL 0.7 mg/dL (0.2-1); BLOOD UREA NITROGEN 18 mg/dL (7-18); CALCIUM 8.6 mg/dL (8.5-10.1); CHLORIDE 102 mmol/L (98-107); CO2 34 mmol/L (22-28); CREATININE 1.1 mg/dL (0.55-1.3); GLUCOSE,RANDOM 192 mg/dL (74-106); MAGNESIUM 2.2 mg/dL (1.8-2.4); PHOSPHOROUS 4.6 mg/dL (2.5-4.9); POTASSIUM 3.7 mmol/L (3.5-5.1); SGOT/AST 17 U/L (15-37); SGPT/ALT 23 U/L (13-61); SODIUM 143 mmol/L (136-145); TOT PROT 6.7 g/dl (6.4-8.2)
[2018-08-07 06:46] LABS: ARTERIAL BLD GAS O2 SATURATION 96.1 % (90-98.9); ARTERIAL BLOOD GAS BASE EXCESS 8.2 meq/l (-2-2); ARTERIAL BLOOD GAS PCO2 46.4 mmHg (35-45); ARTERIAL BLOOD GAS PO2 82.1 mmHg (80-100); ARTERIAL BLOOD GAS pH 7.46 (7.35-7.45)
[2018-08-07 07:05] LABS: ALLENS TEST POSITIVE
[2018-08-07] MEDS: INSULIN SLIDING SCALE (NOVOLOG) 1 VIAL SQ SCH ×3 (07:06→22:31)
--- NOTE | 2018-08-07 08:16 | PN ---
Progress Note, Physician Chief Complaint: AWAKE ALERT EXTUBATED SEEN IN ICU TOLERATING MEALS - Current Medication List Current Medications: Active Medications Albuterol Sulfate (Ventolin 0.083% Nebulizer Soln -) 1 amp NEB Q4H PRN PRN Reason: SHORT OF BREATH/WHEEZING Albuterol/Ipratropium (Duoneb -) 1 amp NEB RQID [facility] Last Admin: 08/06/18 21:10 Dose: 1 amp Aspirin (Asa -) 81 mg PO DAILY [facility] Last Admin: 08/06/18 09:28 Dose: 81 mg Chlorhexidine Gluconate (Hibiclens For Decolonization -) 1 applic TP HS [facility] Last Admin: 08/06/18 22:20 Dose: 1 applic Furosemide (Lasix Injection -) 40 mg IVPUSH BID@0600,1400 [facility] Last Admin: 08/07/18 05:53 Dose: 40 mg Heparin Sodium (Porcine) (Heparin -) 5,000 unit SQ TID [facility] Last Admin: 08/07/18 05:53 Dose: 5,000 unit Piperacillin Sod/Tazobactam (Sod 4.5 gm/ Dextrose) 100 mls @ 200 mls/hr IVPB Q8H-IV [facility]; Protocol Last Admin: 08/07/18 01:31 Dose: 200 mls/hr Vancomycin HCl (Vancomycin (Pre-Docked)) 1,000 mg in 250 mls @ 166.667 mls/hr IVPB DAILY@1200 [facility]; Protocol Last Admin: 08/06/18 12:16 Dose: 166.667 mls/hr Insulin Aspart (Novolog Vial Sliding Scale -) 1 vial SQ ACHS [facility]; Protocol Last Admin: 08/07/18 07:06 Dose: 2 units Mupirocin (Bactroban Ointment (For Decolonization) -) 1 applic NS BID [facility] Stop: 08/10/18 21:59 Last Admin: 08/06/18 22:00 Dose: 1 applic Pantoprazole Sodium (Protonix Iv) 40 mg IVPUSH DAILY [facility] Last Admin: 08/06/18 09:29 Dose: 40 mg Rosuvastatin Calcium (Crestor -) 20 mg PO HS [facility] Last Admin: 08/06/18 21:29 Dose: 20 mg - Objective Vital Signs: Vital Signs Temperature 98.6 F 08/07/18 06:00 Pulse Rate 77 08/07/18 06:00 Respiratory Rate 15 08/07/18 06:00 Blood Pressure 122/62 08/07/18 06:00 O2 Sat by Pulse Oximetry (%) 96 08/06/18 21:00 Constitutional: Yes: Mild Distress Eyes: Yes: WNL HENT: Yes: WNL Neck: Yes: WNL Cardiovascular: Yes: Regular Rate and Rhythm Respiratory: Yes: On Nasal O2 Gastrointestinal: Yes: WNL Genitourinary: Yes: WNL Musculoskeletal: Yes: Muscle Weakness Extremities: Yes: WNL Edema: No Peripheral Pulses WNL: Yes Integumentary: Yes: WNL Wound/Incision: Yes: Clean/Dry Neurological: Yes: WNL ...Motor Strength: WNL Psychiatric: Yes: WNL Labs: CBC, BMP 08/07/18 05:30 08/07/18 05:30 INR, PTT INR 0.96 (0.83-1.09) 08/05/18 11:00 Problem List - Problems (1) CHF (congestive heart failure) Code(s): I50.9 - HEART FAILURE, UNSPECIFIED (2) Pneumonia Code(s): J18.9 - PNEUMONIA, UNSPECIFIED ORGANISM Qualifiers: Pneumonia type: due to unspecified organism Laterality: unspecified laterality Lung location: unspecified part of lung Qualified Code(s): J18.9 - Pneumonia, unspecified organism (3) Respiratory failure Code(s): J96.90 - RESPIRATORY FAILURE, UNSP, UNSP W HYPOXIA OR HYPERCAPNIA Qualifiers: Chronicity: acute Respiratory failure complication: unspecified whether with hypoxia or hypercapnia Qualified Code(s): J96.00 - Acute respiratory failure, unspecified whether with hypoxia or hypercapnia (4) UTI (urinary tract infection) Code(s): N39.0 - URINARY TRACT INFECTION, SITE NOT SPECIFIED (5) Asthma attack Code(s): J45.901 - UNSPECIFIED ASTHMA WITH (ACUTE) EXACERBATION Qualifiers: Asthma severity: mild Asthma persistence: unspecified Qualified Code(s): J45.901 - Unspecified asthma with (acute) exacerbation Assessment/Plan EXTUBATED ON 02 NC WILL NEED AGGRESSIVE PT/REHAB IV ABX CONT NEBS OOB TO CHAIR TRANSFER TO [facility]
[2018-08-07] MEDS: ALBUTEROL SO4 2.5/IPRATROPIUM 0.5 INH SOL 3 ML VIAL.NEB. NEB SCH ×4 (09:54→20:00)
[2018-08-07] MEDS: ASPIRIN 81 MG CHEWABLE TABLETS PO SCH (09:56)
[2018-08-07] MEDS: MUPIROCIN 2% TOPICAL OINTMENT FOR DECOLONIZATION NS SCH (09:56)
[2018-08-07] MEDS: PANTOPRAZOLE SODIUM 40 MG VIAL IVPUSH SCH (09:57)
--- NOTE | 2018-08-07 10:23 | PN ---
Progress Note, Physician History of Present Illness: Awake,alert Extubated No complaints Breathing non-labored on nasal cannula Afebrile WBC remains elevated 16K Influenza swab (-) BC (-) Urine c/s GNR CXR clearing bilaterally - Current Medication List Current Medications: Active Medications Albuterol Sulfate (Ventolin 0.083% Nebulizer Soln -) 1 amp NEB Q4H PRN PRN Reason: SHORT OF BREATH/WHEEZING Albuterol/Ipratropium (Duoneb -) 1 amp NEB RQID [facility] Last Admin: 08/07/18 09:54 Dose: 1 amp Aspirin (Asa -) 81 mg PO DAILY [facility] Last Admin: 08/07/18 09:56 Dose: 81 mg Chlorhexidine Gluconate (Hibiclens For Decolonization -) 1 applic TP HS [facility] Last Admin: 08/06/18 22:20 Dose: 1 applic Furosemide (Lasix Injection -) 40 mg IVPUSH BID@0600,1400 [facility] Last Admin: 08/07/18 05:53 Dose: 40 mg Heparin Sodium (Porcine) (Heparin -) 5,000 unit SQ TID [facility] Last Admin: 08/07/18 05:53 Dose: 5,000 unit Piperacillin Sod/Tazobactam (Sod 4.5 gm/ Dextrose) 100 mls @ 200 mls/hr IVPB Q8H-IV [facility]; Protocol Last Admin: 08/07/18 09:57 Dose: 200 mls/hr Vancomycin HCl (Vancomycin (Pre-Docked)) 1,000 mg in 250 mls @ 166.667 mls/hr IVPB DAILY@1200 [facility]; Protocol Last Admin: 08/06/18 12:16 Dose: 166.667 mls/hr Insulin Aspart (Novolog Vial Sliding Scale -) 1 vial SQ ACHS [facility]; Protocol Last Admin: 08/07/18 07:06 Dose: 2 units Mupirocin (Bactroban Ointment (For Decolonization) -) 1 applic NS BID [facility] Stop: 08/10/18 21:59 Last Admin: 08/07/18 09:56 Dose: 1 applic Pantoprazole Sodium (Protonix Iv) 40 mg IVPUSH DAILY [facility] Last Admin: 08/07/18 09:57 Dose: 40 mg Rosuvastatin Calcium (Crestor -) 20 mg PO HS [facility] Last Admin: 08/06/18 21:29 Dose: 20 mg - Objective Vital Signs: Vital Signs Temperature 98.6 F 08/07/18 06:00 Pulse Rate 77 08/07/18 08:00 Respiratory Rate 15 08/07/18 08:00 Blood Pressure 123/71 08/07/18 08:00 O2 Sat by Pulse Oximetry (%) 96 08/07/18 08:45 Constitutional: Yes: No Distress Eyes: Yes: Conjunctiva Clear Neck: Yes: Thyromegaly Cardiovascular: Yes: S1, S2 Respiratory: Yes: CTA Bilaterally Gastrointestinal: Yes: Normal Bowel Sounds, Soft. No: Tenderness Edema: No Labs: CBC, BMP 08/07/18 05:30 08/07/18 05:30 INR, PTT INR 0.96 (0.83-1.09) 08/05/18 11:00 Assessment/Plan S/P respiratory failure CHF/ Pneumonia UTI Await c/s Continue zosyn/ vancomycin
--- NOTE | 2018-08-07 10:45 | PN ---
Teaching Attending Note Name of Resident: April Rangel ATTENDING PHYSICIAN STATEMENT I saw and evaluated the patient. I reviewed the resident's note and discussed the case with the resident. I agree with the resident's findings and plan as documented. SUBJECTIVE: Patient seen and examined in the ICU. Awake and alert. Breathing feels overall better. No CP. Some dry cough. Intake & Output 08/04/18 08/05/18 08/06/18 08/07/18 23:59 23:59 23:59 23:59 Intake Total 55 731.2 100 Output Total 1550 2550 40 Balance -1495 -1818.8 60 Weight 182 lb 15.739 oz 175 lb 3.2 oz 174 lb 3.2 oz Last Vital Signs Temp Pulse Resp BP Pulse Ox 98.6 F 77 15 123/71 96 08/07/18 06:00 08/07/18 08:00 08/07/18 08:00 08/07/18 08:00 08/07/18 08:45 Active Medications Albuterol Sulfate (Ventolin 0.083% Nebulizer Soln -) 1 amp NEB Q4H PRN PRN Reason: SHORT OF BREATH/WHEEZING Albuterol/Ipratropium (Duoneb -) 1 amp NEB RQID [facility] Last Admin: 08/07/18 09:54 Dose: 1 amp Aspirin (Asa -) 81 mg PO DAILY [facility] Last Admin: 08/07/18 09:56 Dose: 81 mg Chlorhexidine Gluconate (Hibiclens For Decolonization -) 1 applic TP HS [facility] Last Admin: 08/06/18 22:20 Dose: 1 applic Furosemide (Lasix Injection -) 40 mg IVPUSH BID@0600,1400 [facility] Last Admin: 08/07/18 05:53 Dose: 40 mg Heparin Sodium (Porcine) (Heparin -) 5,000 unit SQ TID [facility] Last Admin: 08/07/18 05:53 Dose: 5,000 unit Piperacillin Sod/Tazobactam (Sod 4.5 gm/ Dextrose) 100 mls @ 200 mls/hr IVPB Q8H-IV [facility]; Protocol Last Admin: 08/07/18 09:57 Dose: 200 mls/hr Vancomycin HCl (Vancomycin (Pre-Docked)) 1,000 mg in 250 mls @ 166.667 mls/hr IVPB DAILY@1200 [facility]; Protocol Last Admin: 08/06/18 12:16 Dose: 166.667 mls/hr Insulin Aspart (Novolog Vial Sliding Scale -) 1 vial SQ ACHS [facility]; Protocol Last Admin: 08/07/18 07:06 Dose: 2 units Mupirocin (Bactroban Ointment (For Decolonization) -) 1 applic NS BID [facility] Stop: 08/10/18 21:59 Last Admin: 08/07/18 09:56 Dose: 1 applic Pantoprazole Sodium (Protonix Iv) 40 mg IVPUSH DAILY [facility] Last Admin: 08/07/18 09:57 Dose: 40 mg Rosuvastatin Calcium (Crestor -) 20 mg PO HS [facility] Last Admin: 08/06/18 21:29 Dose: 20 mg GENERAL: Extubated, awake and alert HEENT: NCAT PERRLA, sclera anicteric, conjunctiva clear. No lid lag. NECK: supple without lymphadenopathy, JVD, or masses. LUNGS: Less bilateral rales HEART: RR tachy, normal S1 and S2 without m/r/g ABDOMEN: Soft, mild distended, NT +BS, no guarding, no rebound, no masses. MUSCULOSKELETAL: Normal range of motion at all joints. No bony deformities or tenderness. UPPER EXTREMITIES: 2+ pulses, warm, well-perfused. No cyanosis. No clubbing. Cap refill <2 seconds. No peripheral edema. LOWER EXTREMITIES: 2+ pulses, warm, well-perfused. No calf tenderness. No peripheral edema. NEUROLOGICAL: Non-focal SKIN: Warm, dry, normal turgor, no rashes or lesions noted. Laboratory Results - last 24 hr 08/06/18 08/06/18 08/06/18 05:30 12:08 12:15 WBC RBC Hgb Hct MCV MCH MCHC RDW Plt Count MPV Absolute Neuts (auto) Neutrophils % Lymphocytes % Monocytes % Eosinophils % Basophils % Nucleated RBC % Puncture Site ABG pH ABG pCO2 at Pt Temp ABG pO2 at Pt Temp ABG HCO3 ABG O2 Sat (Measured) ABG O2 Content ABG Base Excess Tim Test O2 Delivery Device Oxygen Flow Rate Sodium Potassium Chloride Carbon Dioxide Anion Gap BUN Creatinine Creat Clearance w eGFR POC Glucometer 130.74773 Random Glucose Lactic Acid 3.3 H* Calcium Phosphorus Magnesium Total Bilirubin AST ALT Alkaline Phosphatase Total Protein Albumin Free T3 2.0 08/06/18 08/06/18 08/06/18 15:20 16:25 20:00 WBC RBC Hgb Hct MCV MCH MCHC RDW Plt Count MPV Absolute Neuts (auto) Neutrophils % Lymphocytes % Monocytes % Eosinophils % Basophils % Nucleated RBC % Puncture Site ABG pH ABG pCO2 at Pt Temp ABG pO2 at Pt Temp ABG HCO3 ABG O2 Sat (Measured) ABG O2 Content ABG Base Excess Tim Test O2 Delivery Device Oxygen Flow Rate Sodium Potassium Chloride Carbon Dioxide Anion Gap BUN Creatinine Creat Clearance w eGFR POC Glucometer 310.05049 Random Glucose Lactic Acid 3.0 H* 2.7 H* Calcium Phosphorus Magnesium Total Bilirubin AST ALT Alkaline Phosphatase Total Protein Albumin Free T3 08/06/18 08/07/18 08/07/18 21:40 04:39 05:30 WBC 16.8 H RBC 4.30 Hgb 10.9 Hct 35.0 MCV 81.4 MCH 25.3 L MCHC 31.1 L RDW 15.9 H Plt Count 159 MPV 10.4 Absolute Neuts (auto) 13.6 H Neutrophils % 80.9 Lymphocytes % 12.7 D Monocytes % 6.3 D Eosinophils % 0.0 Basophils % 0.1 Nucleated RBC % 0 Puncture Site ABG pH ABG pCO2 at Pt Temp ABG pO2 at Pt Temp ABG HCO3 ABG O2 Sat (Measured) ABG O2 Content ABG Base Excess Tim Test O2 Delivery Device Oxygen Flow Rate Sodium Potassium Chloride Carbon Dioxide Anion Gap BUN Creatinine Creat Clearance w eGFR POC Glucometer 224.06317 230.81680 Random Glucose Lactic Acid Calcium Phosphorus Magnesium Total Bilirubin AST ALT Alkaline Phosphatase Total Protein Albumin Free T3 08/07/18 08/07/18 08/07/18 05:30 05:30 06:19 WBC RBC Hgb Hct MCV MCH MCHC RDW Plt Count MPV Absolute Neuts (auto) Neutrophils % Lymphocytes % Monocytes % Eosinophils % Basophils % Nucleated RBC % Puncture Site Left radial ABG pH 7.46 H ABG pCO2 at Pt Temp 46.4 H ABG pO2 at Pt Temp 82.1 D ABG HCO3 32.9 H ABG O2 Sat (Measured) 96.1 ABG O2 Content 18.6 ABG Base Excess 8.2 H Tim Test Positive O2 Delivery Device Venti mask Oxygen Flow Rate 40% Sodium 143 Potassium 3.7 Chloride 102 Carbon Dioxide 34 H Anion Gap 7 L BUN 18 Creatinine 1.1 Creat Clearance w eGFR 51.20 POC Glucometer Random Glucose 192 H Lactic Acid 1.9 Calcium 8.6 Phosphorus 4.6 Magnesium 2.2 Total Bilirubin 0.7 AST 17 ALT 23 Alkaline Phosphatase 86 Total Protein 6.7 Albumin 3.0 L Free T3 08/07/18 06:39 WBC RBC Hgb Hct MCV MCH MCHC RDW Plt Count MPV Absolute Neuts (auto) Neutrophils % Lymphocytes % Monocytes % Eosinophils % Basophils % Nucleated RBC % Puncture Site ABG pH ABG pCO2 at Pt Temp ABG pO2 at Pt Temp ABG HCO3 ABG O2 Sat (Measured) ABG O2 Content ABG Base Excess Tim Test O2 Delivery Device Oxygen Flow Rate Sodium Potassium Chloride Carbon Dioxide Anion Gap BUN Creatinine Creat Clearance w eGFR POC Glucometer 188.72573 Random Glucose Lactic Acid Calcium Phosphorus Magnesium Total Bilirubin AST ALT Alkaline Phosphatase Total Protein Albumin Free T3 ASSESSMENT/PLAN: Acute Respiratory Failure due to APE: etiology unclear Asthma HTN HLD NIDDM GERD CHF CAD History of AMI S/P PCI 2000 (?) COPD CVA with residual Left sided deficit History of hysterectomy R/O PNA Lasix ABX coverage per ID Enteral feeds VTE prophylaxis BD TX I & O Supplemental O2 to maintain saturation PO trial Cardiac Telemetry monitoring Dr Zimmerman
[2018-08-07] MEDS: VANCOMYCIN 1 GRAM (PRE-DOCKED) 1,000 MG/250 ML BAG IVPB SCH (11:31)
--- NOTE | 2018-08-07 12:35 | PN ---
Progress Note (short form) - Note Progress Note: s: extubated, no cp palps dizzy, sob better o: Vital Signs Period Temp Pulse Resp BP Sys/Jaimes Pulse Ox Last 24 Hr 98.4 F-99 F 74-114 14-21 113-125/62-82 96-96 Constitutional: Yes: Well Nourished, nad Respiratory: Yes: Regular, CTA Bilaterally nl eff Gastrointestinal: Yes: Normal Bowel Sounds, Soft Cardiovascular: Yes: Regular Rate and Rhythm JVD: No Heart Sounds: Yes: S1, S2 Extremities: No: Cold, Cyanosis Edema: No Peripheral Pulses: 2+ Left Doralis Pedis, 2+ Right Dorsalis Pedis Neurological: aaox3 no jaundice diaphoresis Current Medications Generic Name Dose Route Start Last Admin Trade Name Freq PRN Reason Stop Dose Admin Albuterol Sulfate 1 amp 08/05/18 13:17 Ventolin 0.083% Nebulizer Soln - NE[facility] Q4H PRN SHORT OF BREATH/WHEEZING Albuterol/Ipratropium 1 amp 08/05/18 16:00 08/07/18 12:30 Duoneb - NEB 1 amp RQID [facility] Administration Aspirin 81 mg 08/06/18 10:00 08/07/18 09:56 Asa - PO 81 mg DAILY [facility] Administration Chlorhexidine Gluconate 1 applic 08/05/18 22:00 08/06/18 22:20 Hibiclens For Decolonization - TP 1 applic HS [facility] Administration Furosemide 40 mg 08/06/18 06:00 08/07/18 05:53 Lasix Injection - IVPUSH 40 mg BID@0600,1400 [facility] Administration Heparin Sodium (Porcine) 5,000 unit 08/05/18 14:00 08/07/18 05:53 Heparin - SQ 5,000 unit TID [facility] Administration Piperacillin Sod/Tazobactam 100 mls @ 200 mls/hr 08/05/18 18:00 08/07/18 09: 57 Sod 4.5 gm/ Dextrose IVPB 200 mls/hr Q8H-IV [facility] Administration Protocol Vancomycin HCl 1,000 mg in 250 mls @ 166.667 mls/hr 08/06/18 12:00 08/07/18 11:31 Vancomycin (Pre-Docked) IVPB 166.667 mls/hr DAILY@1200 [facility] Administration Protocol Insulin Aspart 1 vial 08/05/18 16:30 08/07/18 11:27 Novolog Vial Sliding Scale - SQ 2 units ACHS [facility] Administration Protocol Mupirocin 1 applic 08/05/18 22:00 08/07/18 09:56 Bactroban Ointment (For Decolonization) - NS 08/10/18 21:59 1 applic BID [facility] Administration Pantoprazole Sodium 40 mg 08/05/18 13:19 08/07/18 09:57 Protonix Iv IVPUSH 40 mg DAILY [facility] Administration Rosuvastatin Calcium 20 mg 08/06/18 22:00 08/06/18 21:29 Crestor - PO 20 mg HS [facility] Administration - Other Data Labs, Other Data: CBC, BMP 08/07/18 05:30 08/07/18 05:30 echo 07/2018 LV function severely reduced EF 20-25%, severe global hypokinesis of LV, nl RV, mild MR, trace TR CXR: better aeration tele: sr EKG: sinus nonspecific ST changes, prolonged QTc a/p: 57F h/o HTN, HLD, DM, chronic systolic HF, CAD, s/p AR and stent 2000, COPD, CVA p/w acute respiratory failure Acute respiratory failure, acute systolic HF - treated with abx, solumedrol, nebs for possible PNA, COPD exac - infectious work up per primary team, ID consulted - also getting iv lasix for chf, seems to be most likely etiology of resp failure - resp status improved, now extubated - wt down, cr stable, cont iv lasix 40 bid. monitor daily chem7, wts. - pt reports hx of chf since 2000, reports having cath 2000 with one stent placed, no further interventions since then, follows with cardio at [facility] - resume home toni, bb. Hold home aldactone for now. Abnormal EKG,prolonged QTc - avoid QT prolonging agents - replete for K >4.0, Mg >2.0 - monitoring on tele CAD - h/o AR and stent 2000 - continue aspirin, statin - borderline trops, not c/w acs HTN -stable
--- NOTE | 2018-08-07 16:24 | PN ---
Physical Exam: SUBJECTIVE: Patient seen and examined at bed side this morning. Extubated yesterday, doing well. On nasal canula. Denies chest pain, sob, cough, palpitation, abdominal pain, nausea or vomiting. Overnight, had few PVC's, sinus rhythm. OBJECTIVE: Vital Signs Period Temp Pulse Resp BP Sys/Jaimes Pulse Ox Last 24 Hr 98.5 F-99 F 74-108 15-21 106-125/62-87 96-96 GENERAL: Middle aged female, sitting comfortably in bed, awake, alert, oriented x 3, in no acute distress, saturation normal in Nasal canula. HEENT: No trauma. NECK: Supple. LUNGS: B/L coarse breath sounds bilaterally. HEART: RR tachy, normal S1 and S2 without murmur. ABDOMEN: Soft, non tender, no organomegaly. MUSCULOSKELETAL: Normal range of motion at all joints. No bony deformities or tenderness. UPPER EXTREMITIES: 2+ pulses, warm, well-perfused. No cyanosis. No clubbing. Cap refill <2 seconds. No peripheral edema. LOWER EXTREMITIES: 2+ pulses, warm, well-perfused. No calf tenderness. No peripheral edema. NEUROLOGICAL: No facial droop, CN 2-12 grossly intact, power 5/5 in all extremities and strength grossly intact SKIN: Warm, dry, normal turgor, no rashes or lesions noted. Laboratory Results - last 24 hr 08/06/18 08/06/18 08/06/18 05:30 12:08 15:20 WBC RBC Hgb Hct MCV MCH MCHC RDW Plt Count MPV Absolute Neuts (auto) Neutrophils % Lymphocytes % Monocytes % Eosinophils % Basophils % Nucleated RBC % Puncture Site ABG pH ABG pCO2 at Pt Temp ABG pO2 at Pt Temp ABG HCO3 ABG O2 Sat (Measured) ABG O2 Content ABG Base Excess Tim Test O2 Delivery Device Oxygen Flow Rate Sodium Potassium Chloride Carbon Dioxide Anion Gap BUN Creatinine Creat Clearance w eGFR POC Glucometer [phone] Random Glucose Lactic Acid 3.0 H* Calcium Phosphorus Magnesium Total Bilirubin AST ALT Alkaline Phosphatase Total Protein Albumin Free T3 2.0 08/06/18 08/06/18 08/06/18 16:25 20:00 21:40 WBC RBC Hgb Hct MCV MCH MCHC RDW Plt Count MPV Absolute Neuts (auto) Neutrophils % Lymphocytes % Monocytes % Eosinophils % Basophils % Nucleated RBC % Puncture Site ABG pH ABG pCO2 at Pt Temp ABG pO2 at Pt Temp ABG HCO3 ABG O2 Sat (Measured) ABG O2 Content ABG Base Excess Tim Test O2 Delivery Device Oxygen Flow Rate Sodium Potassium Chloride Carbon Dioxide Anion Gap BUN Creatinine Creat Clearance w eGFR POC Glucometer [phone] Random Glucose Lactic Acid 2.7 H* Calcium Phosphorus Magnesium Total Bilirubin AST ALT Alkaline Phosphatase Total Protein Albumin Free T3 08/07/18 08/07/18 08/07/18 04:39 05:30 05:30 WBC 16.8 H RBC 4.30 Hgb 10.9 Hct 35.0 MCV 81.4 MCH 25.3 L MCHC 31.1 L RDW 15.9 H Plt Count 159 MPV 10.4 Absolute Neuts (auto) 13.6 H Neutrophils % 80.9 Lymphocytes % 12.7 D Monocytes % 6.3 D Eosinophils % 0.0 Basophils % 0.1 Nucleated RBC % 0 Puncture Site ABG pH ABG pCO2 at Pt Temp ABG pO2 at Pt Temp ABG HCO3 ABG O2 Sat (Measured) ABG O2 Content ABG Base Excess Tim Test O2 Delivery Device Oxygen Flow Rate Sodium 143 Potassium 3.7 Chloride 102 Carbon Dioxide 34 H Anion Gap 7 L BUN 18 Creatinine 1.1 Creat Clearance w eGFR 51.20 POC Glucometer [phone] Random Glucose 192 H Lactic Acid Calcium 8.6 Phosphorus 4.6 Magnesium 2.2 Total Bilirubin 0.7 AST 17 ALT 23 Alkaline Phosphatase 86 Total Protein 6.7 Albumin 3.0 L Free T3 08/07/18 08/07/18 08/07/18 05:30 06:19 06:39 WBC RBC Hgb Hct MCV MCH MCHC RDW Plt Count MPV Absolute Neuts (auto) Neutrophils % Lymphocytes % Monocytes % Eosinophils % Basophils % Nucleated RBC % Puncture Site Left radial ABG pH 7.46 H ABG pCO2 at Pt Temp 46.4 H ABG pO2 at Pt Temp 82.1 D ABG HCO3 32.9 H ABG O2 Sat (Measured) 96.1 ABG O2 Content 18.6 ABG Base Excess 8.2 H Tim Test Positive O2 Delivery Device Venti mask Oxygen Flow Rate 40% Sodium Potassium Chloride Carbon Dioxide Anion Gap BUN Creatinine Creat Clearance w eGFR POC Glucometer 188.07470 Random Glucose Lactic Acid 1.9 Calcium Phosphorus Magnesium Total Bilirubin AST ALT Alkaline Phosphatase Total Protein Albumin Free T3 08/07/18 11:25 WBC RBC Hgb Hct MCV MCH MCHC RDW Plt Count MPV Absolute Neuts (auto) Neutrophils % Lymphocytes % Monocytes % Eosinophils % Basophils % Nucleated RBC % Puncture Site ABG pH ABG pCO2 at Pt Temp ABG pO2 at Pt Temp ABG HCO3 ABG O2 Sat (Measured) ABG O2 Content ABG Base Excess Tim Test O2 Delivery Device Oxygen Flow Rate Sodium Potassium Chloride Carbon Dioxide Anion Gap BUN Creatinine Creat Clearance w eGFR POC Glucometer 193.25985 Random Glucose Lactic Acid Calcium Phosphorus Magnesium Total Bilirubin AST ALT Alkaline Phosphatase Total Protein Albumin Free T3 Active Medications Generic Name Dose Route Start Last Admin Trade Name Freq PRN Reason Stop Dose Admin Albuterol Sulfate 1 amp 08/05/18 13:17 Ventolin 0.083% Nebulizer Soln - NEB Q4H PRN SHORT OF BREATH/WHEEZING Albuterol/Ipratropium 1 amp 08/05/18 16:00 08/07/18 12:30 Duoneb - NEB 1 amp RQID [facility] Administration Aspirin 81 mg 08/06/18 10:00 08/07/18 09:56 Asa - PO 81 mg DAILY [facility] Administration Carvedilol 12.5 mg 08/07/18 22:00 Coreg - PO BID [facility] Chlorhexidine Gluconate 1 applic 08/05/18 22:00 08/06/18 22:20 Hibiclens For Decolonization - TP 1 applic HS [facility] Administration Furosemide 40 mg 08/06/18 06:00 08/07/18 14:18 Lasix Injection - IVPUSH 40 mg BID@0600,1400 [facility] Administration Heparin Sodium (Porcine) 5,000 unit 08/05/18 14:00 08/07/18 14:18 Heparin - SQ 5,000 unit TID [facility] Administration Piperacillin Sod/Tazobactam 100 mls @ 200 mls/hr 08/05/18 18:00 08/07/18 09: 57 Sod 4.5 gm/ Dextrose IVPB 200 mls/hr Q8H-IV [facility] Administration Protocol Vancomycin HCl 1,000 mg in 250 mls @ 166.667 mls/hr 08/06/18 12:00 08/07/18 11:31 Vancomycin (Pre-Docked) IVPB 166.667 mls/hr DAILY@1200 [facility] Administration Protocol Insulin Aspart 1 vial 08/05/18 16:30 08/07/18 11:27 Novolog Vial Sliding Scale - SQ 2 units ACHS [facility] Administration Protocol Lisinopril 20 mg 08/08/18 10:00 Prinivil PO DAILY [facility] Mupirocin 1 applic 08/05/18 22:00 08/07/18 09:56 Bactroban Ointment (For Decolonization) - NS 08/10/18 21:59 1 applic BID [facility] Administration Pantoprazole Sodium 40 mg 08/05/18 13:19 08/07/18 09:57 Protonix Iv IVPUSH 40 mg DAILY [facility] Administration Rosuvastatin Calcium 20 mg 08/06/18 22:00 08/06/18 21:29 Crestor - PO 20 mg HS [facility] Administration ASSESSMENT/PLAN: Patient is a 57 year old female with Past Medical History of Asthma, HTN, HLD, NIDDM, GERD, CHF, CAD/[place] s/p Stent (2000), COPD? (non-smoker), CVA (with residual Left sided deficit), hysterectomy, presented with acute respiratory failure likely secondary to acute pulmonary edema, with possibility of ARDS vs CHF exacerbation in the setting of UTI.. Pulmonary Acute hypoxic respiratory failure likely secondary to pulmonary edema/ systolic hF Unlikely due to any infection Extubated on 08/06/18, tolerating well on Nasal canula today Emperically treating with IV Zosyn 3.375 gm Q8H Blood cultures negative Albuterol PRN Cardiovascular Likely due has cardiogenic pulmonary edema Improved with IV Lasix so will continue IV Lasix 40mg BID Systolic HF ECHO 08/05/18: Left ventricular systolic function is severely reduced, Mild MR , trace TR Continue IV Lasix Prolonged Qtc Avoid Qtc prolonging agents, Maintain K> 4and Mg > RENAL UTI UC shows lactose fermenting bacilli Continue Zosyn ENDO DM-II Finger stick BGM, ISS, Monitor for hypoglycemia FEN Avoid IV fluids, tolerating Soft diet Electrolytes will repeat it in AM Soft diet Prophylaxis For DVT: On Heparin 5000 IU sq TID For GI: On IV Protonix 40 mg Daily Code Status: Full Code Dispo: Admitted in the ICU. Stable and can be transferred to Tele. Illness, Investigation and Plan of care explained to the patient. She verbalized understanding. Case seen and discussed with Dr. Zimmerman. Visit type - Emergency Visit Emergency Visit: Yes ED Registration Date: 08/05/18 Care time: The patient presented to the Emergency Department on the above date and was hospitalized for further evaluation of their emergent condition. - New Patient This patient is new to me today: No - Critical Care Critical Care patient: Yes Total Critical Care Time (in minutes): 35 Critical Care Statement: The care of this patient involved high complexity decision making to prevent further life threatening deterioration of the patient 's condition and/or to evaluate & treat vital organ system(s) failure or risk of failure. - Discharge Referral Referred to [facility] No
[2018-08-07] MEDS ORDERED: ALBUTEROL SO4 0.083% IH SOL 2.5 MG/3 ML VIAL.NEB. NEB PRN (16:47)
[2018-08-07] MEDS ORDERED: MUPIROCIN 2% TOPICAL OINTMENT FOR DECOLONIZATION NS SCH (22:00)
[2018-08-07] MEDS ORDERED: CHLORHEXIDINE GLUCONATE 4% CLEANSER FOR DECOLONIZATION TP SCH (22:00)
[2018-08-07] MEDS: ROSUVASTATIN CA 20 MG TABLET (FP) PO SCH (22:30)
[2018-08-07] MEDS: CARVEDILOL 12.5 MG TABLET (FP) PO SCH (22:30)
[2018-08-08] MEDS ORDERED: PIPERACILLIN/TAZOBACTAM 4.5 GM VIAL IVPB ONE ×3 (03:28→17:18)
[2018-08-08] MEDS ORDERED: DEXTROSE 5%-WATER 100 ML IVPB ONE ×3 (03:29→17:18)
[2018-08-08] MEDS: PIPERACILLIN/TAZOB 4.5 GM 4.5 GM in DEXTROSE 5%-WATER 100 ML IVPB SCH ×3 (03:41→17:30)
[2018-08-08] MEDS: HEPARIN NA (PORCINE) 5,000 UNITS/ML 1ML VIAL SQ SCH ×3 (06:25→22:43)
[2018-08-08] MEDS: FUROSEMIDE 40 MG/4 ML INJECTABLE VIAL IVPUSH SCH ×2 (06:25→16:00)
[2018-08-08] MEDS: INSULIN SLIDING SCALE (NOVOLOG) 1 VIAL SQ SCH ×4 (06:29→22:44)
[2018-08-08 06:48] LABS: HEMATOCRIT 34.9 % (32.4-45.2); MCH 25.5 pg (25.7-33.7); MCHC 31.4 g/dl (32.0-36.0); MEAN CELL VOLUME 81.1 fl (80-96); MEAN PLT VOLUME 10.2 fl (7.5-11.1); PLATELET COUNT 141 K/MM3 (134-434); RDW 15.8 % (11.6-15.6); WHITE BLOOD COUNT 11.2 K/mm3 (4.0-10.0)
[2018-08-08 07:29] LABS: ANION GAP 9 MMOL/L (8-16); BLOOD UREA NITROGEN 20 mg/dL (7-18); CHLORIDE 98 mmol/L (98-107); CO2 33 mmol/L (21-32); GLUCOSE,RANDOM 239 mg/dL (74-106); MAGNESIUM 1.9 mg/dL (1.8-2.4); PHOSPHOROUS 3.6 mg/dL (2.5-4.9); POTASSIUM 3.6 mmol/L (3.5-5.1); SODIUM 140 mmol/L (136-145)
[2018-08-08] MEDS: ALBUTEROL SO4 2.5/IPRATROPIUM 0.5 INH SOL 3 ML VIAL.NEB. NEB SCH ×4 (08:14→20:24)
--- NOTE | 2018-08-08 09:53 | PN ---
Progress Note, Physician Chief Complaint: UNRESPINSIVE AT HOME/SYNCOPE/RESPIRATORY DISTRESS History of Present Illness: NAD extubated transferred to Tele yesterday Seen by Cardiology and pulmonary - Current Medication List Current Medications: Active Medications Albuterol Sulfate (Ventolin 0.083% Nebulizer Soln -) 1 amp NEB Q4H PRN PRN Reason: SHORT OF BREATH/WHEEZING Albuterol/Ipratropium (Duoneb -) 1 amp NEB RQID [facility] Last Admin: 08/08/18 08:14 Dose: 1 amp Aspirin (Asa -) 81 mg PO DAILY [facility] Carvedilol (Coreg -) 12.5 mg PO BID [facility] Last Admin: 08/07/18 22:30 Dose: 12.5 mg Furosemide (Lasix Injection -) 40 mg IVPUSH BID@0600,1400 [facility] Last Admin: 08/08/18 06:25 Dose: 40 mg Heparin Sodium (Porcine) (Heparin -) 5,000 unit SQ TID [facility] Last Admin: 08/08/18 06:25 Dose: 5,000 unit Vancomycin HCl (Vancomycin (Pre-Docked)) 1,000 mg in 250 mls @ 166.667 mls/hr IVPB DAILY@1200 [facility]; Protocol Piperacillin Sod/Tazobactam (Sod 4.5 gm/ Dextrose) 100 mls @ 200 mls/hr IVPB Q8H-IV [facility]; Protocol Last Admin: 08/08/18 03:41 Dose: 200 mls/hr Insulin Aspart (Novolog Vial Sliding Scale -) 1 vial SQ ACHS [facility]; Protocol Last Admin: 08/08/18 06:29 Dose: 6 units Lisinopril (Prinivil) 20 mg PO DAILY [facility] Pantoprazole Sodium (Protonix Iv) 40 mg IVPUSH DAILY [facility] Rosuvastatin Calcium (Crestor -) 20 mg PO HS [facility] Last Admin: 08/07/18 22:30 Dose: 20 mg - Objective Vital Signs: Vital Signs Temperature 98.5 F 08/08/18 06:00 Pulse Rate 72 08/08/18 08:00 Respiratory Rate 18 08/08/18 08:00 Blood Pressure 143/80 08/08/18 08:00 O2 Sat by Pulse Oximetry (%) 100 08/08/18 08:24 Labs: CBC, BMP 08/08/18 05:20 08/08/18 05:20 INR, PTT INR 0.96 (0.83-1.09) 08/05/18 11:00 Problem List - Problems (1) CAD (coronary artery disease) Assessment/Plan: - h/o ID and stent 2000 - continue aspirin, statin - borderline trops, not c/w acs Code(s): I25.10 - ATHSCL HEART DISEASE OF [place] CORONARY ARTERY W/O ANG PCTRS (2) QT prolongation Assessment/Plan: -Avoid Qtc prolonging agents, Maintain K> 4and Mg > -Tele monitor Code(s): R94.31 - ABNORMAL ELECTROCARDIOGRAM [ECG] [EKG] (3) Diabetes Assessment/Plan: -BGM AC HS -Diabetic diet -Last A1c at 10.1 in 2017 -Repeat A1c -RD consult -Novolog sliding scale -Endocrinology consult Code(s): E11.9 - TYPE 2 DIABETES MELLITUS WITHOUT COMPLICATIONS (4) Respiratory failure Assessment/Plan: -Acute hypoxic respiratory failure likely secondary to pulmonary edema/systolic hF -Unlikely due to any infection -Extubated on 08/06/18, tolerating well on Nasal cannula today -ON IV Zosyn and Vanco -Blood cultures negative -Bronchodilators -Pulmonary on board Code(s): J96.90 - RESPIRATORY FAILURE, UNSP, UNSP W HYPOXIA OR HYPERCAPNIA Qualifiers: Chronicity: acute Respiratory failure complication: unspecified whether with hypoxia or hypercapnia Qualified Code(s): J96.00 - Acute respiratory failure, unspecified whether with hypoxia or hypercapnia Assessment/Plan see problem list DVT prophylaxis Physical therapy
[2018-08-08] MEDS ORDERED: POTASSIUM CHLORIDE TABS 20 MEQ TABLET.ER (FP) PO SCH (10:00)
[2018-08-08] MEDS: PANTOPRAZOLE SODIUM 40 MG VIAL IVPUSH SCH (11:10)
[2018-08-08] MEDS: ASPIRIN 81 MG CHEWABLE TABLETS PO SCH (11:11)
[2018-08-08] MEDS: LISINOPRIL 20 MG TABLET (FP) PO SCH (11:11)
[2018-08-08] MEDS: CARVEDILOL 12.5 MG TABLET (FP) PO SCH ×2 (11:11→22:43)
--- NOTE | 2018-08-08 12:14 | PN ---
Progress Note (short form) - Note Progress Note: s: no cp palps dizzy, sob better o: Vital Signs Period Temp Pulse Resp BP Sys/Jaimes Pulse Ox Last 24 Hr 69 F-98.6 F 69-76 15-20 106-143/56-87 98-100 Constitutional: Yes: Well Nourished, nad Respiratory: Yes: Regular, CTA Bilaterally nl eff Gastrointestinal: Yes: Normal Bowel Sounds, Soft Cardiovascular: Yes: Regular Rate and Rhythm JVD: No Heart Sounds: Yes: S1, S2 Extremities: No: Cold, Cyanosis Edema: No Peripheral Pulses: 2+ Left Doralis Pedis, 2+ Right Dorsalis Pedis Neurological: [id number] no jaundice diaphoresis Current Medications Generic Name Dose Route Start Last Admin Trade Name Freq PRN Reason Stop Dose Admin Albuterol Sulfate 1 amp 08/07/18 16:47 Ventolin 0.083% Nebulizer Soln - NEB Q4H PRN SHORT OF BREATH/WHEEZING Albuterol/Ipratropium 1 amp 08/07/18 20:00 08/08/18 11:56 Duoneb - NEB 1 amp RQID [facility] Administration Aspirin 81 mg 08/08/18 10:00 08/08/18 11:11 Asa - PO 81 mg DAILY [facility] Administration Carvedilol 12.5 mg 08/07/18 22:00 08/08/18 11:11 Coreg - PO 12.5 mg BID [facility] Administration Furosemide 40 mg 08/08/18 06:00 08/08/18 06:25 Lasix Injection - IVPUSH 40 mg BID@0600,1400 [facility] Administration Heparin Sodium (Porcine) 5,000 unit 08/07/18 22:00 08/08/18 06:25 Heparin - SQ 5,000 unit TID [facility] Administration Vancomycin HCl 1,000 mg in 250 mls @ 166.667 mls/hr 08/08/18 12:00 Vancomycin (Pre-Docked) IVPB DAILY@1200 [facility] Protocol Piperacillin Sod/Tazobactam 100 mls @ 200 mls/hr 08/07/18 18:00 08/08/18 11: 11 Sod 4.5 gm/ Dextrose IVPB 200 mls/hr Q8H-IV [facility] Administration Protocol Insulin Aspart 1 vial 08/07/18 22:00 08/08/18 06:29 Novolog Vial Sliding Scale - SQ 6 units ACHS [facility] Administration Protocol Lisinopril 20 mg 08/08/18 10:00 08/08/18 11:11 Prinivil PO 20 mg DAILY [facility] Administration Pantoprazole Sodium 40 mg 08/08/18 10:00 08/08/18 11:10 Protonix Iv IVPUSH 40 mg DAILY [facility] Administration Potassium Chloride 20 meq 08/08/18 10:00 08/08/18 11:11 K-Dur - PO 20 meq DAILY [facility] Administration Rosuvastatin Calcium 20 mg 08/07/18 22:00 08/07/18 22:30 Crestor - PO 20 mg HS [facility] Administration - Other Data Labs, Other Data: CBC, BMP 08/08/18 05:20 08/08/18 05:20 echo 07/2018 LV function severely reduced EF 20-25%, severe global hypokinesis of LV, nl RV, mild MR, trace TR CXR: better aeration tele: sr, occ pvcs EKG: sinus nonspecific ST changes, prolonged QTc a/p: 57F h/o HTN, HLD, DM, chronic systolic HF, CAD, s/p MD and stent 2000, COPD, CVA p/w acute respiratory failure Acute respiratory failure, acute systolic HF - treated with abx, solumedrol, nebs for possible PNA, COPD exac - infectious work up per primary team, ID consulted - also getting iv lasix for chf, seems to be most likely etiology of resp failure - resp status improved, now extubated -08/08: wt down, cr stable, cont iv lasix 40 bid. monitor daily chem7, wts. - pt reports hx of chf since 2000, reports having cath 2000 with one stent placed, no further interventions since then, follows with cardio at [facility] - resume home toni, bb. Hold home aldactone for now. Abnormal EKG,prolonged QTc - avoid QT prolonging agents - replete for K >4.0, Mg >2.0 - monitoring on tele CAD - h/o MD and stent 2000 - continue aspirin, statin - borderline trops, not c/w acs HTN -stable
--- NOTE | 2018-08-08 13:43 | PN ---
Progress Note (short form) - Note Progress Note: Breathing feels overall better. No CP. Some dry cough. Intake & Output 08/05/18 08/06/18 08/07/18 08/08/18 23:59 23:59 23:59 23:59 Intake Total 55 731.2 550 490 Output Total 1550 2550 2140 500 Balance -1495 -1818.8 -1590 -10 Weight 182 lb 15.739 oz 175 lb 3.2 oz 174 lb 3.2 oz 170 lb 6.4 oz Last Vital Signs Temp Pulse Resp BP Pulse Ox 98.5 F 72 18 143/80 100 08/08/18 06:00 08/08/18 08:00 08/08/18 08:00 08/08/18 08:00 08/08/18 08:24 Active Medications Albuterol Sulfate (Ventolin 0.083% Nebulizer Soln -) 1 amp NEB Q4H PRN PRN Reason: SHORT OF BREATH/WHEEZING Albuterol/Ipratropium (Duoneb -) 1 amp NEB RQID [facility] Last Admin: 08/08/18 11:56 Dose: 1 amp Aspirin (Asa -) 81 mg PO DAILY [facility] Last Admin: 08/08/18 11:11 Dose: 81 mg Carvedilol (Coreg -) 12.5 mg PO BID [facility] Last Admin: 08/08/18 11:11 Dose: 12.5 mg Furosemide (Lasix Injection -) 40 mg IVPUSH BID@0600,1400 [facility] Last Admin: 08/08/18 06:25 Dose: 40 mg Heparin Sodium (Porcine) (Heparin -) 5,000 unit SQ TID [facility] Last Admin: 08/08/18 06:25 Dose: 5,000 unit Vancomycin HCl (Vancomycin (Pre-Docked)) 1,000 mg in 250 mls @ 166.667 mls/hr IVPB DAILY@1200 [facility]; Protocol Piperacillin Sod/Tazobactam (Sod 4.5 gm/ Dextrose) 100 mls @ 200 mls/hr IVPB Q8H-IV [facility]; Protocol Last Admin: 08/08/18 11:11 Dose: 200 mls/hr Insulin Aspart (Novolog Vial Sliding Scale -) 1 vial SQ ACHS [facility]; Protocol Last Admin: 08/08/18 06:29 Dose: 6 units Lisinopril (Prinivil) 20 mg PO DAILY [facility] Last Admin: 08/08/18 11:11 Dose: 20 mg Pantoprazole Sodium (Protonix Iv) 40 mg IVPUSH DAILY [facility] Last Admin: 08/08/18 11:10 Dose: 40 mg Potassium Chloride (K-Dur -) 20 meq PO DAILY [facility] Last Admin: 08/08/18 11:11 Dose: 20 meq Rosuvastatin Calcium (Crestor -) 20 mg PO HS [facility] Last Admin: 08/07/18 22:30 Dose: 20 mg GENERAL: NAD, awake and alert HEENT: NCAT PERRLA, sclera anicteric, conjunctiva clear. No lid lag. NECK: supple without lymphadenopathy, JVD, or masses. LUNGS: Less bilateral rales HEART: RR tachy, normal S1 and S2 without m/r/g ABDOMEN: Soft, mild distended, NT +BS, no guarding, no rebound, no masses. MUSCULOSKELETAL: Normal range of motion at all joints. No bony deformities or tenderness. UPPER EXTREMITIES: 2+ pulses, warm, well-perfused. No cyanosis. No clubbing. Cap refill <2 seconds. No peripheral edema. LOWER EXTREMITIES: 2+ pulses, warm, well-perfused. No calf tenderness. No peripheral edema. NEUROLOGICAL: Non-focal SKIN: Warm, dry, normal turgor, no rashes or lesions noted. Laboratory Results - last 24 hr 08/07/18 08/08/18 08/08/18 22:29 05:20 05:20 WBC 11.2 H RBC 4.30 Hgb 11.0 Hct 34.9 MCV 81.1 MCH 25.5 L MCHC 31.4 L RDW 15.8 H Plt Count 141 MPV 10.2 Sodium 140 Potassium 3.6 Chloride 98 Carbon Dioxide 33 H Anion Gap 9 BUN 20 H Creatinine 1.0 Creat Clearance w eGFR 57.15 POC Glucometer 322 Random Glucose 239 H Hemoglobin A1c % Calcium 8.0 L Phosphorus 3.6 Magnesium 1.9 Vancomycin Pre-Dose 08/08/18 08/08/18 08/08/18 06:26 10:10 10:29 WBC RBC Hgb Hct MCV MCH MCHC RDW Plt Count MPV Sodium Potassium Chloride Carbon Dioxide Anion Gap BUN Creatinine Creat Clearance w eGFR POC Glucometer 256 Random Glucose Hemoglobin A1c % 8.6 H Calcium Phosphorus Magnesium Vancomycin Pre-Dose 4.9 L 08/08/18 11:03 WBC RBC Hgb Hct MCV MCH MCHC RDW Plt Count MPV Sodium Potassium Chloride Carbon Dioxide Anion Gap BUN Creatinine Creat Clearance w eGFR POC Glucometer 281 Random Glucose Hemoglobin A1c % Calcium Phosphorus Magnesium Vancomycin Pre-Dose ASSESSMENT/PLAN: Acute Respiratory Failure due to APE: etiology unclear Asthma HTN HLD NIDDM GERD CHF CAD History of AMI S/P PCI 2000 (?) COPD CVA with residual Left sided deficit History of hysterectomy R/O PNA Lasix ABX coverage per ID Enteral feeds VTE prophylaxis BD TX I & O Supplemental O2 to maintain saturation PO trial Telemetry monitoring Dr Zimmerman
[2018-08-08] MEDS: VANCOMYCIN 1 GRAM (PRE-DOCKED) 1,000 MG/250 ML BAG IVPB SCH (17:29)
--- NOTE | 2018-08-08 19:07 | EKG ---
Test Reason : Blood Pressure : / mmHG Vent. Rate : 075 BPM Atrial Rate : 075 BPM P-R Int : 140 ms QRS Dur : 098 ms QT Int : 402 ms P-R-T Axes : 068 016 -02 degrees QTc Int : 448 ms SINUS RHYTHM WITH MARKED SINUS ARRHYTHMIA VOLTAGE CRITERIA FOR LEFT VENTRICULAR HYPERTROPHY T WAVE ABNORMALITY, CONSIDER INFERIOR ISCHEMIA ABNORMAL ECG WHEN COMPARED WITH ECG OF 06-AUG-2018 09:49, T WAVE VARIATION Confirmed by SIM BATES, TRISTEN ([id number]) on 08/08/2018 7:07:23 PM Referred By: Viktoria JOSEPH Confirmed By:TRISTEN MONTEMAYOR MD
--- NOTE | 2018-08-08 21:06 | CONSULT ---
Consult Consult Specialty:: endocrine Referred by:: feli gregory np Reason for Consultation:: diabetes mellitus - History of Present Illness Chief Complaint: high sugar History of Present Illness: 57 year old female with a history of DM2 HTN, HLD, CHF, CAD s/p Stent, COPD, CVA who presents for evaluation of respiratory distress. The patient presents via EMS minimally responsive. 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: CVA Cardio/Vascular: Yes: HTN, Hyperlipdemia Pulmonary: Yes: Asthma Endocrine: Yes: Diabetes Mellitus - Past Surgical History Additional Surgical History: stent - Alcohol/Substance Use Hx Alcohol Use: No History of Substance Use: reports: None - Smoking History Smoking history: Unknown if ever smoked Have you smoked in the past 12 months: No Home Medications - Allergies Allergies/Adverse Reactions: Allergies Allergy/AdvReac Type Severity Reaction Status Date / Time No Known Allergies Allergy Verified 08/05/18 11:06 - Home Medications Home Medications: Ambulatory Orders Aspirin [ASA -] 81 mg PO DAILY 03/14/14 Lisinopril [Prinivil -] 20 mg PO DAILY 10/13/14 Rosuvastatin Calcium [Crestor] 20 mg PO HS 10/13/14 Carvedilol [Coreg -] 12.5 mg PO BID 03/09/17 Albuterol Sulfate Inhaler - [Ventolin HFA Inhaler -] 1 - 2 inh IH Q4H PRN Salmeterol/Fluticasone [Advair 500Mcg/50Mcg -] 1 puff IH DAILY 04/21/17 Insulin Aspart [Novolog] 8 unit SQ TID 05/17/18 Ammonium Lactate Cream [Lac-Hydrin 12% *Cream*] 1 applic TP BID 08/05/18 Glipizide [Glipizide ER] 0 mg PO ASDIR 08/05/18 Insulin Glargine,Hum.rec.anlog [Lantus] 0 unit SQ ASDIR 08/05/18 Spironolactone [Aldactone] 25 mg PO DAILY 08/05/18 Family Disease History - Family Disease History Family Disease History: Heart Disease: Mother (mother's side has "Heart problems "), CA: Father (history of CA on fathers side ) Review of Systems - Review of Systems Constitutional: reports: Loss of Appetite Eyes: reports: No Symptoms HENT: reports: No Symptoms Neck: reports: No Symptoms Cardiovascular: reports: Shortness of Breath Respiratory: reports: Exercise Intolerance Gastrointestinal: reports: Bloating, Constipation Genitourinary: reports: No Symptoms Breasts: reports: No Symptoms Reported Musculoskeletal: reports: No Symptoms Integumentary: reports: No Symptoms Neurological: reports: Weakness Endocrine: reports: Unexplained Weight Loss Physical Exam Vital Signs: Vital Signs Temperature 98.5 F 08/08/18 20:27 Pulse Rate 88 08/08/18 20:27 Respiratory Rate 20 08/08/18 20:27 Blood Pressure 105/53 L 08/08/18 20:27 O2 Sat by Pulse Oximetry (%) 100 08/08/18 20:27 Constitutional: Yes: Anxious Eyes: Yes: EOM Intact HENT: Yes: Normocephalic Neck: Yes: Trachea Midline Cardiovascular: Yes: Regular Rate and Rhythm Respiratory: Yes: Rhonchi, SOB on Exertion, Tachypnea Gastrointestinal: Yes: Normal Bowel Sounds ...Rectal Exam: Yes: Deferred Breast(s): Yes: WNL Musculoskeletal: Yes: Back Pain, Muscle Weakness Extremities: Yes: WNL Neurological: Yes: Alert, Oriented Labs: CBC, BMP 08/08/18 05:20 08/08/18 05:20 Problem List - Problems (1) CAD (coronary artery disease) Code(s): I25.10 - ATHSCL HEART DISEASE OF [place] CORONARY ARTERY W/O ANG PCTRS (2) CHF (congestive heart failure) Code(s): I50.9 - HEART FAILURE, UNSPECIFIED (3) Diabetes Code(s): E11.9 - TYPE 2 DIABETES MELLITUS WITHOUT COMPLICATIONS (4) Pneumonia Code(s): J18.9 - PNEUMONIA, UNSPECIFIED ORGANISM Qualifiers: Pneumonia type: due to unspecified organism Laterality: unspecified laterality Lung location: unspecified part of lung Qualified Code(s): J18.9 - Pneumonia, unspecified organism (5) QT prolongation Code(s): R94.31 - ABNORMAL ELECTROCARDIOGRAM [ECG] [EKG] (6) Respiratory failure Code(s): J96.90 - RESPIRATORY FAILURE, UNSP, UNSP W HYPOXIA OR HYPERCAPNIA Qualifiers: Chronicity: acute Respiratory failure complication: unspecified whether with hypoxia or hypercapnia Qualified Code(s): J96.00 - Acute respiratory failure, unspecified whether with hypoxia or hypercapnia (7) UTI (urinary tract infection) Code(s): N39.0 - URINARY TRACT INFECTION, SITE NOT SPECIFIED Assessment/Plan Current Active Problems CAD (coronary artery disease) (Acute) CHF (congestive heart failure) (Acute) Diabetes (Acute) Pneumonia (Acute) QT prolongation (Acute) Respiratory failure (Acute) UTI (urinary tract infection) (Acute) Abnormal Lab Results 08/08/18 08/08/18 08/08/18 05:20 05:20 10:10 WBC 11.2 H MCH 25.5 L MCHC 31.4 L RDW 15.8 H Carbon Dioxide 33 H BUN 20 H Random Glucose 239 H Hemoglobin A1c % 8.6 H Calcium 8.0 L Vancomycin Pre-Dose 08/08/18 10:29 WBC MCH MCHC RDW Carbon Dioxide BUN Random Glucose Hemoglobin A1c % Calcium Vancomycin Pre-Dose 4.9 L Laboratory Results - last 24 hr 08/07/18 08/08/18 08/08/18 22:29 05:20 05:20 WBC 11.2 H RBC 4.30 Hgb 11.0 Hct 34.9 MCV 81.1 MCH 25.5 L MCHC 31.4 L RDW 15.8 H Plt Count 141 MPV 10.2 Sodium 140 Potassium 3.6 Chloride 98 Carbon Dioxide 33 H Anion Gap 9 BUN 20 H Creatinine 1.0 Creat Clearance w eGFR 57.15 POC Glucometer 322 Random Glucose 239 H Hemoglobin A1c % Calcium 8.0 L Phosphorus 3.6 Magnesium 1.9 Vancomycin Pre-Dose 08/08/18 08/08/18 08/08/18 06:26 10:10 10:29 WBC RBC Hgb Hct MCV MCH MCHC RDW Plt Count MPV Sodium Potassium Chloride Carbon Dioxide Anion Gap BUN Creatinine Creat Clearance w eGFR POC Glucometer 256 Random Glucose Hemoglobin A1c % 8.6 H Calcium Phosphorus Magnesium Vancomycin Pre-Dose 4.9 L 08/08/18 08/08/18 11:03 17:03 WBC RBC Hgb Hct MCV MCH MCHC RDW Plt Count MPV Sodium Potassium Chloride Carbon Dioxide Anion Gap BUN Creatinine Creat Clearance w eGFR POC Glucometer 281 252 Random Glucose Hemoglobin A1c % Calcium Phosphorus Magnesium Vancomycin Pre-Dose plan: bgm qid novolog insulin doses levemir 22 am levemir 15 units hs
[2018-08-08] MEDS: ROSUVASTATIN CA 20 MG TABLET (FP) PO SCH (22:43)
[2018-08-08] MEDS: INSULIN (LEVEMIR) 100 UNITS/ML UNITS SQ SCH (22:43)
[2018-08-09] MEDS ORDERED: DEXTROSE 5%-WATER 100 ML IVPB ONE ×2 (02:49→08:03)
[2018-08-09] MEDS ORDERED: PIPERACILLIN/TAZOBACTAM 4.5 GM VIAL IVPB ONE ×2 (02:49→08:03)
[2018-08-09] MEDS: PIPERACILLIN/TAZOB 4.5 GM 4.5 GM in DEXTROSE 5%-WATER 100 ML IVPB SCH ×2 (03:11→09:59)
[2018-08-09] MEDS: FUROSEMIDE 40 MG/4 ML INJECTABLE VIAL IVPUSH SCH (06:27)
[2018-08-09] MEDS: HEPARIN NA (PORCINE) 5,000 UNITS/ML 1ML VIAL SQ SCH ×3 (06:27→22:54)
[2018-08-09] MEDS: INSULIN (LEVEMIR) 100 UNITS/ML UNITS SQ SCH ×2 (06:30→22:54)
[2018-08-09] MEDS: INSULIN SLIDING SCALE (NOVOLOG) 1 VIAL SQ SCH ×4 (06:31→22:58)
[2018-08-09 06:49] LABS: BASO % 0.3 % (0-2.0); EOS % 2.8 % (0-4.5); HEMATOCRIT 36.3 % (32.4-45.2); HEMOGLOBIN 11.3 GM/dL (10.7-15.3); MCH 25.5 pg (25.7-33.7); MCHC 31.2 g/dl (32.0-36.0); MEAN CELL VOLUME 81.6 fl (80-96); MONO % 7.3 % (3.8-10.2); NEUT % 63.6 % (42.8-82.8); PLATELET COUNT 157 K/MM3 (134-434); RBC 4.45 M/mm3 (3.60-5.2); RDW 15.2 % (11.6-15.6); WHITE BLOOD COUNT 12.3 K/mm3 (4.0-10.0)
[2018-08-09 06:57] LABS: ALK PHOS 87 U/L (45-117); ANION GAP 9 MMOL/L (8-16); BILIRUBIN,TOTAL 0.9 mg/dL (0.2-1); BLOOD UREA NITROGEN 21 mg/dL (7-18); CALCIUM 8.4 mg/dL (8.5-10.1); CHLORIDE 96 mmol/L (98-107); CO2 34 mmol/L (21-32); GLUCOSE,RANDOM 287 mg/dL (74-106); POTASSIUM 3.3 mmol/L (3.5-5.1); SGOT/AST 19 U/L (15-37); SGPT/ALT 22 U/L (13-61); SODIUM 138 mmol/L (136-145)
[2018-08-09] MEDS: ALBUTEROL SO4 2.5/IPRATROPIUM 0.5 INH SOL 3 ML VIAL.NEB. NEB SCH ×4 (07:30→20:52)
--- NOTE | 2018-08-09 08:45 | PN ---
Progress Note, Physician - Current Medication List Current Medications: Active Medications Albuterol Sulfate (Ventolin 0.083% Nebulizer Soln -) 1 amp NEB Q4H PRN PRN Reason: SHORT OF BREATH/WHEEZING Albuterol/Ipratropium (Duoneb -) 1 amp NEB RQID [facility] Last Admin: 08/09/18 07:30 Dose: 1 amp Aspirin (Asa -) 81 mg PO DAILY [facility] Last Admin: 08/08/18 11:11 Dose: 81 mg Carvedilol (Coreg -) 12.5 mg PO BID [facility] Last Admin: 08/08/18 22:43 Dose: 12.5 mg Furosemide (Lasix Injection -) 40 mg IVPUSH BID@0600,1400 [facility] Last Admin: 08/09/18 06:27 Dose: 40 mg Heparin Sodium (Porcine) (Heparin -) 5,000 unit SQ TID [facility] Last Admin: 08/09/18 06:27 Dose: 5,000 unit Vancomycin HCl (Vancomycin (Pre-Docked)) 1,000 mg in 250 mls @ 166.667 mls/hr IVPB DAILY@1200 [facility]; Protocol Last Admin: 08/08/18 17:29 Dose: 166.667 mls/hr Piperacillin Sod/Tazobactam (Sod 4.5 gm/ Dextrose) 100 mls @ 200 mls/hr IVPB Q8H-IV [facility]; Protocol Last Admin: 08/09/18 03:11 Dose: 200 mls/hr Insulin Aspart (Novolog Vial Sliding Scale -) 1 vial SQ ACHS [facility]; Protocol Last Admin: 08/09/18 06:31 Dose: 6 units Insulin Detemir (Levemir Vial) 15 units SQ HS [facility] Last Admin: 08/08/18 22:43 Dose: 15 units Insulin Detemir (Levemir Vial) 22 units SQ DAILY@0700 [facility] Last Admin: 08/09/18 06:30 Dose: 22 units Lisinopril (Prinivil) 20 mg PO DAILY [facility] Last Admin: 08/08/18 11:11 Dose: 20 mg Pantoprazole Sodium (Protonix Iv) 40 mg IVPUSH DAILY [facility] Last Admin: 08/08/18 11:10 Dose: 40 mg Potassium Chloride (K-Dur -) 20 meq PO DAILY [facility] Last Admin: 08/08/18 11:11 Dose: 20 meq Rosuvastatin Calcium (Crestor -) 20 mg PO HS [facility] Last Admin: 08/08/18 22:43 Dose: 20 mg - Objective Vital Signs: Vital Signs Temperature 97.5 F L 08/09/18 06:00 Pulse Rate 76 08/09/18 06:00 Respiratory Rate 20 08/09/18 06:00 Blood Pressure 130/74 08/09/18 06:00 O2 Sat by Pulse Oximetry (%) 100 08/08/18 20:27 Cardiovascular: Yes: S1, S2 Respiratory: Yes: Diminished, On Nasal O2 Gastrointestinal: Yes: Normal Bowel Sounds, Soft Labs: CBC, BMP 08/09/18 05:30 08/09/18 05:30 INR, PTT INR 0.96 (0.83-1.09) 08/05/18 11:00 Assessment/Plan - Problems (1) CAD (coronary artery disease) Assessment/Plan: - h/o [place] and stent 2000 - continue aspirin, statin - borderline trops, not c/w acs Code(s): I25.10 - ATHSCL HEART DISEASE OF [place] CORONARY ARTERY W/O ANG PCTRS (2) QT prolongation Assessment/Plan: -Avoid Qtc prolonging agents, Maintain K> 4and Mg > -Tele monitor Code(s): R94.31 - ABNORMAL ELECTROCARDIOGRAM [ECG] [EKG] (3) Diabetes Assessment/Plan: -BGM AC HS -Diabetic diet -Last A1c at 10.1 in 2017 -Repeat A1c -RD consult -Novolog sliding scale -Endocrinology consult Code(s): E11.9 - TYPE 2 DIABETES MELLITUS WITHOUT COMPLICATIONS (4) Respiratory failure Assessment/Plan: -Acute hypoxic respiratory failure likely secondary to pulmonary edema/systolic hF -Unlikely due to any infection -Extubated on 08/06/18, tolerating well on Nasal cannula today -ON IV Zosyn and Vanco--per id--follow up cxr -Blood cultures negative -Bronchodilators -Pulmonary on board Code(s): J96.90 - RESPIRATORY FAILURE, UNSP, UNSP W HYPOXIA OR HYPERCAPNIA Qualifiers: Chronicity: acute Respiratory failure complication: unspecified whether with hypoxia or hypercapnia Qualified Code(s): J96.00 - Acute respiratory failure, unspecified whether with hypoxia or hypercapnia Assessment/Plan see problem list DVT prophylaxis Physical therapy
--- NOTE | 2018-08-09 09:33 | PN ---
Progress Note, Physician Chief Complaint: sob History of Present Illness: sob "much better" than before. did ok with PT walking in [place] today no wheezing no cp no palpitations no syncope no cigs - Current Medication List Current Medications: Active Medications Albuterol Sulfate (Ventolin 0.083% Nebulizer Soln -) 1 amp NEB Q4H PRN PRN Reason: SHORT OF BREATH/WHEEZING Albuterol/Ipratropium (Duoneb -) 1 amp NEB RQID [facility] Last Admin: 08/09/18 07:30 Dose: 1 amp Aspirin (Asa -) 81 mg PO DAILY [facility] Last Admin: 08/08/18 11:11 Dose: 81 mg Carvedilol (Coreg -) 12.5 mg PO BID [facility] Last Admin: 08/08/18 22:43 Dose: 12.5 mg Furosemide (Lasix Injection -) 40 mg IVPUSH BID@0600,1400 [facility] Last Admin: 08/09/18 06:27 Dose: 40 mg Heparin Sodium (Porcine) (Heparin -) 5,000 unit SQ TID [facility] Last Admin: 08/09/18 06:27 Dose: 5,000 unit Vancomycin HCl (Vancomycin (Pre-Docked)) 1,000 mg in 250 mls @ 166.667 mls/hr IVPB DAILY@1200 [facility]; Protocol Last Admin: 08/08/18 17:29 Dose: 166.667 mls/hr Piperacillin Sod/Tazobactam (Sod 4.5 gm/ Dextrose) 100 mls @ 200 mls/hr IVPB Q8H-IV [facility]; Protocol Last Admin: 08/09/18 03:11 Dose: 200 mls/hr Insulin Aspart (Novolog Vial Sliding Scale -) 1 vial SQ ACHS [facility]; Protocol Last Admin: 08/09/18 06:31 Dose: 6 units Insulin Detemir (Levemir Vial) 15 units SQ HS [facility] Last Admin: 08/08/18 22:43 Dose: 15 units Insulin Detemir (Levemir Vial) 22 units SQ DAILY@0700 [facility] Last Admin: 08/09/18 06:30 Dose: 22 units Lisinopril (Prinivil) 20 mg PO DAILY [facility] Last Admin: 08/08/18 11:11 Dose: 20 mg Pantoprazole Sodium (Protonix Iv) 40 mg IVPUSH DAILY [facility] Last Admin: 08/08/18 11:10 Dose: 40 mg Potassium Chloride (K-Dur -) 20 meq PO DAILY [facility] Last Admin: 08/08/18 11:11 Dose: 20 meq Rosuvastatin Calcium (Crestor -) 20 mg PO HS [facility] Last Admin: 08/08/18 22:43 Dose: 20 mg - Objective Vital Signs: Vital Signs Temperature 98.1 F 08/09/18 08:53 Pulse Rate 80 08/09/18 08:53 Respiratory Rate 20 08/09/18 08:53 Blood Pressure 104/50 L 08/09/18 08:53 O2 Sat by Pulse Oximetry (%) 100 08/09/18 08:49 Constitutional: Yes: No Distress, Calm Eyes: No: Sclera Icterus HENT: No: Nasal Congestion Cardiovascular: Yes: Regular Rate and Rhythm, S1, S2, Other (PMI non diplaced). No: JVD, Gallop, Murmur Respiratory: Yes: CTA Bilaterally. No: Accessory Muscle Use, Rales, Wheezes Gastrointestinal: Yes: Normal Bowel Sounds, Soft. No: Tenderness Musculoskeletal: Yes: Other (No kyphosis) Extremities: No: Cold Edema: No Integumentary: No: Jaundice Neurological: Yes: Alert, Oriented (x3) Psychiatric: No: Agitated Labs: CBC, BMP 08/09/18 05:30 08/09/18 05:30 INR, PTT INR 0.96 (0.83-1.09) 08/05/18 11:00 Assessment/Plan echo 07/2018 LV function severely reduced EF 20-25%, severe global hypokinesis of LV, nl RV, mild MR, trace TR CXR 08/09 reviewed images: trace L effusion; prior pulm edema pattern resolved, no vascular redistributaiton pattern EKG: sinus nonspecific ST changes, prolonged QTc milvia: NSR, VT x 8 beat run a/p: 57F h/o HTN, HLD, DM, chronic systolic HF, CAD, s/p [place] and stent 2000, COPD, CVA p/w acute respiratory failure Acute respiratory failure, acute on chronic syst CHF, h/o mili- CMP: - treated with abx, solumedrol, nebs for possible PNA, COPD exac - infectious work up per primary team, ID consulted - also getting iv lasix for chf, seems to be most likely etiology of resp failure - BNP 1200 (200 baseline prior), congestive changes on CXR, improving on repeat study - intubated initially-->extubated - 08/08: wt down, cr stable, cont iv lasix 40 bid. - 08/09: wt continues to trend down, labs stable. sob much improved, CXR nearly resolved (trace-small L effusion persists). not on lasix at home. would stop IV and change to 40 po daily. - ? EF down from prior at present. apparently h/o mili- CMP many yrs ago per pt, with waxing and waning LV fxn since. follows with dr raya and [facility], no prior ICD discussion/rec. - incr carvedilol from home dose 12.5 bid to 115 bid. - will touch base with dr raya today (phone call placed, awaiting response) --probably plan for pt to f/u with him in office next week - pt reports hx of chf since 2000, reports having cath 2000 with one stent placed, no further interventions since then. follows with cardio at [facility] - cont home toni. Hold home aldactone for now, till resting bp reassessed in office next week on higher carvedilol dose plus lasix VT: - 8 beat run nonsustained monomorphic VT - likely re-entrant rhythm from scar in patient with known systolic dysfunction - K/Mag per usual aggressive targets (below) - BB, HF optimization as doing - pt warrants primary prevn ICD given EF <30% despite optimal med regimen--per outpt cardio Abnormal EKG,prolonged QTc - avoid QT prolonging agents - replete for K >4.0, Mg >2.0 - QT today down to 480 msec range, ok, - tele no R-on-T torsade/PMVT CAD - h/o [place] and stent 2000 - continue aspirin, statin - borderline trops, not c/w acs HTN -stable
[2018-08-09] MEDS: PANTOPRAZOLE SODIUM 40 MG VIAL IVPUSH SCH (09:53)
[2018-08-09] MEDS: ASPIRIN 81 MG CHEWABLE TABLETS PO SCH (09:54)
[2018-08-09] MEDS: POTASSIUM CHLORIDE TABS 20 MEQ TABLET.ER (FP) PO SCH (09:55)
[2018-08-09] MEDS: CARVEDILOL 12.5 MG TABLET (FP) PO SCH (09:55)
[2018-08-09] MEDS: LISINOPRIL 20 MG TABLET (FP) PO SCH (09:55)
[2018-08-09] MEDS: VANCOMYCIN 1 GRAM (PRE-DOCKED) 1,000 MG/250 ML BAG IVPB SCH ×2 (09:57→11:16)
--- NOTE | 2018-08-09 10:44 | EKG ---
Test Reason : Blood Pressure : / mmHG Vent. Rate : 091 BPM Atrial Rate : 091 BPM P-R Int : 130 ms QRS Dur : 088 ms QT Int : 392 ms P-R-T Axes : 068 007 -02 degrees QTc Int : 482 ms NORMAL SINUS RHYTHM WITH SINUS ARRHYTHMIA RIGHT ATRIAL ENLARGEMENT MODERATE VOLTAGE CRITERIA FOR LVH, MAY BE NORMAL VARIANT PROLONGED QT ABNORMAL ECG WHEN COMPARED WITH ECG OF 07-AUG-2018 08:47, NO SIGNIFICANT CHANGE WAS FOUND Confirmed by TRISTEN MONTEMAYOR MD ([id number]) on 08/09/2018 10:43:41 AM Referred By: HERBERT THURSTON Confirmed By:TRISTEN MONTEMAYOR MD
--- NOTE | 2018-08-09 11:03 | PN ---
Progress Note, Physician History of Present Illness: PULMONARY alert,feeling better,comfortable,sob improving - Current Medication List Current Medications: Active Medications Albuterol Sulfate (Ventolin 0.083% Nebulizer Soln -) 1 amp NEB Q4H PRN PRN Reason: SHORT OF BREATH/WHEEZING Albuterol/Ipratropium (Duoneb -) 1 amp NEB RQID [facility] Last Admin: 08/09/18 07:30 Dose: 1 amp Aspirin (Asa -) 81 mg PO DAILY [facility] Last Admin: 08/09/18 09:54 Dose: 81 mg Carvedilol (Coreg -) 12.5 mg PO BID [facility] Last Admin: 08/09/18 09:55 Dose: 12.5 mg Furosemide (Lasix Injection -) 40 mg IVPUSH BID@0600,1400 [facility] Last Admin: 08/09/18 06:27 Dose: 40 mg Heparin Sodium (Porcine) (Heparin -) 5,000 unit SQ TID [facility] Last Admin: 08/09/18 06:27 Dose: 5,000 unit Vancomycin HCl (Vancomycin (Pre-Docked)) 1,000 mg in 250 mls @ 166.667 mls/hr IVPB DAILY@1200 [facility]; Protocol Last Admin: 08/09/18 09:57 Dose: 166.667 mls/hr Piperacillin Sod/Tazobactam (Sod 4.5 gm/ Dextrose) 100 mls @ 200 mls/hr IVPB Q8H-IV [facility]; Protocol Last Admin: 08/09/18 09:59 Dose: 200 mls/hr Insulin Aspart (Novolog Vial Sliding Scale -) 1 vial SQ ACHS [facility]; Protocol Last Admin: 08/09/18 06:31 Dose: 6 units Insulin Detemir (Levemir Vial) 15 units SQ HS [facility] Last Admin: 08/08/18 22:43 Dose: 15 units Insulin Detemir (Levemir Vial) 22 units SQ DAILY@0700 [facility] Last Admin: 08/09/18 06:30 Dose: 22 units Lisinopril (Prinivil) 20 mg PO DAILY [facility] Last Admin: 08/09/18 09:55 Dose: 20 mg Pantoprazole Sodium (Protonix Iv) 40 mg IVPUSH DAILY [facility] Last Admin: 08/09/18 09:53 Dose: 40 mg Potassium Chloride (K-Dur -) 40 meq PO DAILY [facility] Last Admin: 08/09/18 09:55 Dose: 40 meq Rosuvastatin Calcium (Crestor -) 20 mg PO HS [facility] Last Admin: 08/08/18 22:43 Dose: 20 mg - Objective Vital Signs: Vital Signs Temperature 98.1 F 08/09/18 08:53 Pulse Rate 80 08/09/18 08:53 Respiratory Rate 20 08/09/18 08:53 Blood Pressure 104/50 L 08/09/18 08:53 O2 Sat by Pulse Oximetry (%) 100 08/09/18 08:49 Constitutional: Yes: Well Nourished, Calm Eyes: Yes: WNL HENT: Yes: WNL Neck: Yes: WNL Cardiovascular: Yes: Regular Rate and Rhythm, S1, S2 Respiratory: Yes: Rales (bibasilar rales) Gastrointestinal: Yes: Normal Bowel Sounds, Soft Extremities: Yes: WNL Edema: No Labs: CBC, BMP 08/09/18 05:30 08/09/18 05:30 INR, PTT INR 0.96 (0.83-1.09) 08/05/18 11:00 - ....Imaging Chest X-ray: Image Reviewed (improved congestion) Problem List - Problems (1) CAD (coronary artery disease) Code(s): I25.10 - ATHSCL HEART DISEASE OF [place] CORONARY ARTERY W/O ANG PCTRS (2) CHF (congestive heart failure) Code(s): I50.9 - HEART FAILURE, UNSPECIFIED (3) Diabetes Code(s): E11.9 - TYPE 2 DIABETES MELLITUS WITHOUT COMPLICATIONS (4) QT prolongation Code(s): R94.31 - ABNORMAL ELECTROCARDIOGRAM [ECG] [EKG] (5) Respiratory failure Code(s): J96.90 - RESPIRATORY FAILURE, UNSP, UNSP W HYPOXIA OR HYPERCAPNIA Qualifiers: Chronicity: acute Respiratory failure complication: unspecified whether with hypoxia or hypercapnia Qualified Code(s): J96.00 - Acute respiratory failure, unspecified whether with hypoxia or hypercapnia Assessment/Plan ASSESSMENT/PLAN: S/P Acute Respiratory Failure due to APE: etiology unclear Asthma HTN HLD NIDDM GERD CHF CAD History of AMI S/P PCI 2000 (?) COPD CVA with residual Left sided deficit History of hysterectomy R/O PNA Lasix ABX coverage per ID VTE prophylaxis BD TX I & O Supplemental O2 to maintain saturation DR MERLOS
[2018-08-09] MEDS: FUROSEMIDE 40 MG TABLET (FP) PO SCH (12:36)
--- NOTE | 2018-08-09 16:53 | PN ---
Progress Note (short form) - Note Progress Note: day #4 antibiotics much improved extubated and on telemetry Vital Signs Period Temp Pulse Resp BP Sys/Jaimes Pulse Ox Last 24 Hr 97.5 F-98.7 F 76-91 20-20 93-132/50-74 100-100 cor-rrr lungs clear abd soft,nt ext no edema CBC, BMP 08/09/18 05:30 08/09/18 05:30 Microbiology 08/05/18 11:00 Blood - Peripheral Venous Blood Culture - Preliminary NO GROWTH OBTAINED AFTER 96 HOURS, INCUBATION TO CONTINUE FOR 1 DAYS. 08/05/18 11:01 Blood - Peripheral Venous Blood Culture - Preliminary NO GROWTH OBTAINED AFTER 96 HOURS, INCUBATION TO CONTINUE FOR 1 DAYS. 08/07/18 09:45 Sputum - Expectorated Gram Stain - Final 08/07/18 09:45 Sputum - Expectorated Sputum Culture - Final Yeast Like Organism 08/05/18 11:00 Urine - Urine - Catheterized Urine Culture - Final Klebsiella Pneumoniae 08/05/18 15:35 Nasopharyngeal Swab Influenza Types A,B Antigen - Final 08/05/18 15:35 Nasopharyngeal Swab - Final 08/05/18 15:20 Urine For Antigen Detection Legionella Antigen - Final 08/05/18 15:20 Urine For Antigen Detection Streptococcus pneumoniae Antigen (M - Final Active Medications Albuterol Sulfate (Ventolin 0.083% Nebulizer Soln -) 1 amp NEB Q4H PRN PRN Reason: SHORT OF BREATH/WHEEZING Albuterol/Ipratropium (Duoneb -) 1 amp NEB RQID [facility] Last Admin: 08/09/18 16:05 Dose: 1 amp Aspirin (Asa -) 81 mg PO DAILY [facility] Last Admin: 08/09/18 09:54 Dose: 81 mg Carvedilol (Coreg -) 25 mg PO BID [facility] Furosemide (Lasix -) 40 mg PO DAILY [facility] Last Admin: 08/09/18 12:36 Dose: Not Given Heparin Sodium (Porcine) (Heparin -) 5,000 unit SQ TID [facility] Last Admin: 08/09/18 14:19 Dose: 5,000 unit Vancomycin HCl (Vancomycin (Pre-Docked)) 1,000 mg in 250 mls @ 166.667 mls/hr IVPB DAILY@1200 [facility]; Protocol Last Admin: 08/09/18 11:16 Dose: Not Given Piperacillin Sod/Tazobactam (Sod 4.5 gm/ Dextrose) 100 mls @ 200 mls/hr IVPB Q8H-IV [facility]; Protocol Last Admin: 08/09/18 09:59 Dose: 200 mls/hr Insulin Aspart (Novolog Vial Sliding Scale -) 1 vial SQ ACHS [facility]; Protocol Last Admin: 08/09/18 12:08 Dose: 10 units Insulin Detemir (Levemir Vial) 15 units SQ HS [facility] Last Admin: 08/08/18 22:43 Dose: 15 units Insulin Detemir (Levemir Vial) 22 units SQ DAILY@0700 [facility] Last Admin: 08/09/18 06:30 Dose: 22 units Lisinopril (Prinivil) 20 mg PO DAILY [facility] Last Admin: 08/09/18 09:55 Dose: 20 mg Pantoprazole Sodium (Protonix Iv) 40 mg IVPUSH DAILY [facility] Last Admin: 08/09/18 09:53 Dose: 40 mg Potassium Chloride (K-Dur -) 40 meq PO DAILY [facility] Last Admin: 08/09/18 09:55 Dose: 40 meq Rosuvastatin Calcium (Crestor -) 20 mg PO HS [facility] Last Admin: 08/08/18 22:43 Dose: 20 mg cxray clear a/p respiratory failure resolved more likely CHF then pneumonia-echo with ef 20-25% UTI d/c vancomycin and zosyn-day #4 keflex for 3 days for UTI Problem List - Problems (1) Respiratory failure Code(s): J96.90 - RESPIRATORY FAILURE, UNSP, UNSP W HYPOXIA OR HYPERCAPNIA Qualifiers: Chronicity: acute Respiratory failure complication: unspecified whether with hypoxia or hypercapnia Qualified Code(s): J96.00 - Acute respiratory failure, unspecified whether with hypoxia or hypercapnia (2) CHF (congestive heart failure) Code(s): I50.9 - HEART FAILURE, UNSPECIFIED (3) Pneumonia Code(s): J18.9 - PNEUMONIA, UNSPECIFIED ORGANISM Qualifiers: Pneumonia type: due to unspecified organism Laterality: unspecified laterality Lung location: unspecified part of lung Qualified Code(s): J18.9 - Pneumonia, unspecified organism (4) UTI (urinary tract infection) Code(s): N39.0 - URINARY TRACT INFECTION, SITE NOT SPECIFIED
[2018-08-09 21:49] VITALS: BMI 28.0
[2018-08-09] MEDS: CARVEDILOL 25 MG TABLET (FP) PO SCH (22:54)
[2018-08-09] MEDS: CEPHALEXIN MONOHYDRATE 500 MG CAPSULE (UD) PO SCH (22:54)
[2018-08-09] MEDS: ROSUVASTATIN CA 20 MG TABLET (FP) PO SCH (22:57)
[2018-08-10] MEDS: HEPARIN NA (PORCINE) 5,000 UNITS/ML 1ML VIAL SQ SCH ×3 (06:09→22:12)
[2018-08-10] MEDS: INSULIN (LEVEMIR) 100 UNITS/ML UNITS SQ SCH ×2 (06:10→22:12)
[2018-08-10] MEDS: INSULIN SLIDING SCALE (NOVOLOG) 1 VIAL SQ SCH ×4 (06:11→22:09)
[2018-08-10 06:35] LABS: BASO % 0.6 % (0-2.0); EOS % 4.7 % (0-4.5); HEMATOCRIT 36.7 % (32.4-45.2); HEMOGLOBIN 11.6 GM/dL (10.7-15.3); MCH 25.5 pg (25.7-33.7); MCHC 31.5 g/dl (32.0-36.0); MEAN CELL VOLUME 81.1 fl (80-96); MEAN PLT VOLUME 10.6 fl (7.5-11.1); MONO % 7.3 % (3.8-10.2); NEUT % 57.4 % (42.8-82.8); PLATELET COUNT 165 K/MM3 (134-434); RBC 4.53 M/mm3 (3.60-5.2); WHITE BLOOD COUNT 10.7 K/mm3 (4.0-10.0)
[2018-08-10 07:33] LABS: ALK PHOS 84 U/L (45-117); ANION GAP 10 MMOL/L (8-16); BILIRUBIN,TOTAL 0.7 mg/dL (0.2-1); BLOOD UREA NITROGEN 19 mg/dL (7-18); CALCIUM 8.7 mg/dL (8.5-10.1); CHLORIDE 97 mmol/L (98-107); CO2 32 mmol/L (21-32); CREATININE 0.7 mg/dL (0.55-1.3); GLUCOSE,RANDOM 207 mg/dL (74-106); POTASSIUM 3.6 mmol/L (3.5-5.1); SGOT/AST 15 U/L (15-37); SGPT/ALT 22 U/L (13-61); SODIUM 139 mmol/L (136-145); TOT PROT 6.8 g/dl (6.4-8.2)
--- NOTE | 2018-08-10 08:23 | PN ---
Progress Note, Physician History of Present Illness: feels better - Current Medication List Current Medications: Active Medications Albuterol Sulfate (Ventolin 0.083% Nebulizer Soln -) 1 amp NEB Q4H PRN PRN Reason: SHORT OF BREATH/WHEEZING Albuterol/Ipratropium (Duoneb -) 1 amp NEB RQID [facility] Last Admin: 08/09/18 20:52 Dose: 1 amp Aspirin (Asa -) 81 mg PO DAILY [facility] Last Admin: 08/09/18 09:54 Dose: 81 mg Carvedilol (Coreg -) 25 mg PO BID [facility] Last Admin: 08/09/18 22:54 Dose: 25 mg Cephalexin HCl (Keflex -) 500 mg PO BID [facility] Last Admin: 08/09/18 22:54 Dose: 500 mg Furosemide (Lasix -) 40 mg PO DAILY [facility] Last Admin: 08/09/18 12:36 Dose: Not Given Heparin Sodium (Porcine) (Heparin -) 5,000 unit SQ TID [facility] Last Admin: 08/10/18 06:09 Dose: 5,000 unit Insulin Aspart (Novolog Vial Sliding Scale -) 1 vial SQ [facility]; Protocol Last Admin: 08/10/18 06:11 Dose: 4 units Insulin Detemir (Levemir Vial) 15 units SQ [facility] Last Admin: 08/09/18 22:54 Dose: 15 units Insulin Detemir (Levemir Vial) 22 units SQ DAILY@0700 [facility] Last Admin: 08/10/18 06:10 Dose: 22 units Lisinopril (Prinivil) 20 mg PO DAILY [facility] Last Admin: 08/09/18 09:55 Dose: 20 mg Pantoprazole Sodium (Protonix Iv) 40 mg IVPUSH DAILY [facility] Last Admin: 08/09/18 09:53 Dose: 40 mg Potassium Chloride (K-Dur -) 40 meq PO DAILY [facility] Last Admin: 08/09/18 09:55 Dose: 40 meq Rosuvastatin Calcium (Crestor -) 20 mg PO HS [facility] Last Admin: 08/09/18 22:57 Dose: 20 mg - Objective Vital Signs: Vital Signs Temperature 98.1 F 08/10/18 02:00 Pulse Rate 78 08/10/18 02:00 Respiratory Rate 20 08/10/18 02:00 Blood Pressure 107/60 08/10/18 02:00 O2 Sat by Pulse Oximetry (%) 96 08/09/18 21:00 Cardiovascular: Yes: Bradycardia, S1, S2 Respiratory: Yes: Diminished, On Nasal O2 Gastrointestinal: Yes: Normal Bowel Sounds, Soft Labs: CBC, BMP 08/10/18 05:30 08/10/18 06:00 INR, PTT INR 0.96 (0.83-1.09) 08/05/18 11:00 Assessment/Plan - Problems (1) CAD (coronary artery disease) Assessment/Plan: - h/o PA and stent 2000 - continue aspirin, statin - borderline trops, not c/w acs Code(s): I25.10 - ATHSCL HEART DISEASE OF [place] CORONARY ARTERY W/O ANG PCTRS (2) QT prolongation Assessment/Plan: -Avoid Qtc prolonging agents, Maintain K> 4and Mg > -Tele monitor Code(s): R94.31 - ABNORMAL ELECTROCARDIOGRAM [ECG] [EKG] (3) Diabetes Assessment/Plan: -BGM AC HS -Diabetic diet -Last A1c at 10.1 in 2017 -Repeat A1c -RD consult -Novolog sliding scale -Endocrinology consult Code(s): E11.9 - TYPE 2 DIABETES MELLITUS WITHOUT COMPLICATIONS (4) Respiratory failure Assessment/Plan: -Acute hypoxic respiratory failure likely secondary to pulmonary edema/systolic hF -Unlikely due to any infection -Extubated on 08/06/18, tolerating well on Nasal cannula today--CHECK PULSE OX ON RA -ON IV Zosyn and Vanco--per id--Now off--on po keflex -Blood cultures negative -Bronchodilators -Pulmonary on board Code(s): J96.90 - RESPIRATORY FAILURE, UNSP, UNSP W HYPOXIA OR HYPERCAPNIA Qualifiers: Chronicity: acute Respiratory failure complication: unspecified whether with hypoxia or hypercapnia Qualified Code(s): J96.00 - Acute respiratory failure, unspecified whether with hypoxia or hypercapnia see problem list DVT prophylaxis Physical therapy dc planning
[2018-08-10] MEDS: ALBUTEROL SO4 2.5/IPRATROPIUM 0.5 INH SOL 3 ML VIAL.NEB. NEB SCH ×4 (08:49→20:13)
[2018-08-10] MEDS: LISINOPRIL 20 MG TABLET (FP) PO SCH (09:31)
[2018-08-10] MEDS: CEPHALEXIN MONOHYDRATE 500 MG CAPSULE (UD) PO SCH ×2 (09:31→22:11)
[2018-08-10] MEDS: CARVEDILOL 25 MG TABLET (FP) PO SCH ×2 (09:31→22:12)
[2018-08-10] MEDS: ASPIRIN 81 MG CHEWABLE TABLETS PO SCH (09:31)
[2018-08-10] MEDS: FUROSEMIDE 40 MG TABLET (FP) PO SCH (09:31)
[2018-08-10] MEDS: PANTOPRAZOLE SODIUM 40 MG VIAL IVPUSH SCH (09:31)
[2018-08-10] MEDS: POTASSIUM CHLORIDE TABS 20 MEQ TABLET.ER (FP) PO SCH ×2 (09:31→09:41)
--- NOTE | 2018-08-10 10:56 | PN ---
Progress Note, Physician History of Present Illness: PULMONARY ALERT,FEELING BETTER,LESS DYSPNEIC - Current Medication List Current Medications: Active Medications Albuterol Sulfate (Ventolin 0.083% Nebulizer Soln -) 1 amp NEB Q4H PRN PRN Reason: SHORT OF BREATH/WHEEZING Albuterol/Ipratropium (Duoneb -) 1 amp NEB RQID [facility] Last Admin: 08/10/18 08:49 Dose: 1 amp Aspirin (Asa -) 81 mg PO DAILY [facility] Last Admin: 08/10/18 09:31 Dose: 81 mg Carvedilol (Coreg -) 25 mg PO BID [facility] Last Admin: 08/10/18 09:31 Dose: 25 mg Cephalexin HCl (Keflex -) 500 mg PO BID [facility] Last Admin: 08/10/18 09:31 Dose: 500 mg Furosemide (Lasix -) 40 mg PO DAILY [facility] Last Admin: 08/10/18 09:31 Dose: 40 mg Heparin Sodium (Porcine) (Heparin -) 5,000 unit SQ TID [facility] Last Admin: 08/10/18 06:09 Dose: 5,000 unit Insulin Aspart (Novolog Vial Sliding Scale -) 1 vial SQ [facility]; Protocol Last Admin: 08/10/18 06:11 Dose: 4 units Insulin Detemir (Levemir Vial) 15 units SQ [facility] Last Admin: 08/09/18 22:54 Dose: 15 units Insulin Detemir (Levemir Vial) 22 units SQ DAILY@0700 [facility] Last Admin: 08/10/18 06:10 Dose: 22 units Lisinopril (Prinivil) 20 mg PO DAILY [facility] Last Admin: 08/10/18 09:31 Dose: 20 mg Pantoprazole Sodium (Protonix Iv) 40 mg IVPUSH DAILY [facility] Last Admin: 08/10/18 09:31 Dose: 40 mg Potassium Chloride (K-Dur -) 40 meq PO DAILY [facility] Last Admin: 08/10/18 09:41 Dose: Not Given Rosuvastatin Calcium (Crestor -) 20 mg PO [facility] Last Admin: 08/09/18 22:57 Dose: 20 mg - Objective Vital Signs: Vital Signs Temperature 98.1 F 08/10/18 02:00 Pulse Rate 94 H 08/10/18 09:08 Respiratory Rate 20 08/10/18 02:00 Blood Pressure 107/60 08/10/18 02:00 O2 Sat by Pulse Oximetry (%) 96 08/10/18 09:08 Constitutional: Yes: Well Nourished, Calm Eyes: Yes: WNL HENT: Yes: WNL Neck: Yes: WNL Cardiovascular: Yes: Regular Rate and Rhythm, S1, S2 Respiratory: Yes: Wheezes (SCATTERED WHEEZES) Gastrointestinal: Yes: Normal Bowel Sounds, Soft Extremities: Yes: WNL Edema: No Labs: CBC, BMP 08/10/18 05:30 08/10/18 06:00 Problem List - Problems (1) CAD (coronary artery disease) Code(s): I25.10 - ATHSCL HEART DISEASE OF [place] CORONARY ARTERY W/O ANG PCTRS (2) CHF (congestive heart failure) Code(s): I50.9 - HEART FAILURE, UNSPECIFIED (3) Diabetes Code(s): E11.9 - TYPE 2 DIABETES MELLITUS WITHOUT COMPLICATIONS (4) QT prolongation Code(s): R94.31 - ABNORMAL ELECTROCARDIOGRAM [ECG] [EKG] (5) Respiratory failure Code(s): J96.90 - RESPIRATORY FAILURE, UNSP, UNSP W HYPOXIA OR HYPERCAPNIA Qualifiers: Chronicity: acute Respiratory failure complication: unspecified whether with hypoxia or hypercapnia Qualified Code(s): J96.00 - Acute respiratory failure, unspecified whether with hypoxia or hypercapnia Assessment/Plan ASSESSMENT/PLAN: S/P Acute Respiratory Failure due to APE: etiology unclear Asthma HTN HLD NIDDM GERD CHF CAD History of AMI S/P PCI 2000 (?) COPD CVA with residual Left sided deficit History of hysterectomy R/O PNA Lasix ABX coverage per ID VTE prophylaxis BD TX I & O Supplemental O2 DR MERLOS
[2018-08-10] MEDS: POTASSIUM CHLORIDE ORAL LIQUID 20 MEQ/15 ML PO SCH (11:38)
--- NOTE | 2018-08-10 11:52 | PN ---
Progress Note (short form) - Note Progress Note: History of Present Illness: sob "much better" than before. did well with PT walking in [place] today no wheezing no cp no palpitations no syncope no cigs - Current Medication List Current Medications Generic Name Dose Route Start Last Admin Trade Name Freq PRN Reason Stop Dose Admin Albuterol Sulfate 1 amp 08/07/18 16:47 Ventolin 0.083% Nebulizer Soln - NEB Q4H PRN SHORT OF BREATH/WHEEZING Albuterol/Ipratropium 1 amp 08/07/18 20:00 08/10/18 08:49 Duoneb - NEB 1 amp RQID [facility] Administration Aspirin 81 mg 08/08/18 10:00 08/10/18 09:31 Asa - PO 81 mg DAILY [facility] Administration Carvedilol 25 mg 08/09/18 12:20 08/10/18 09:31 Coreg - PO 25 mg BID [facility] Administration Cephalexin HCl 500 mg 08/09/18 22:00 08/10/18 09:31 Keflex - PO 500 mg BID [facility] Administration Furosemide 40 mg 08/09/18 12:30 08/10/18 09:31 Lasix - PO 40 mg DAILY [facility] Administration Heparin Sodium (Porcine) 5,000 unit 08/07/18 22:00 08/10/18 06:09 Heparin - SQ 5,000 unit TID [facility] Administration Insulin Aspart 1 vial 08/07/18 22:00 08/10/18 11:34 Novolog Vial Sliding Scale - SQ 6 units ACHS [facility] Administration Protocol Insulin Detemir 15 units 08/08/18 22:00 08/09/18 22:54 Levemir Vial SQ 15 units HS [facility] Administration Insulin Detemir 22 units 08/09/18 07:00 08/10/18 06:10 Levemir Vial SQ 22 units DAILY@0700 [facility] Administration Lisinopril 20 mg 08/08/18 10:00 08/10/18 09:31 Prinivil PO 20 mg DAILY [facility] Administration Pantoprazole Sodium 40 mg 08/08/18 10:00 08/10/18 09:31 Protonix Iv IVPUSH 40 mg DAILY [facility] Administration Potassium Chloride 40 meq 08/10/18 11:15 08/10/18 11:38 Potassium Chloride Oral Liquid PO 40 meq DAILY [facility] Administration Rosuvastatin Calcium 20 mg 08/07/18 22:00 08/09/18 22:57 Crestor - PO 20 mg HS [facility] Administration - Objective Vital Signs: Vital Signs Period Temp Pulse Resp BP Sys/Jaimes Pulse Ox Last 24 Hr 97.2 F-98.9 F 78-94 18-20 93-108/50-60 96-100 Constitutional: Yes: No Distress, Calm Eyes: No: Sclera Icterus HENT: No: Nasal Congestion Cardiovascular: Yes: Regular Rate and Rhythm, S1, S2, Other (PMI non diplaced). No: JVD, Gallop, Murmur Respiratory: Yes: CTA Bilaterally. No: Accessory Muscle Use, Rales, Wheezes Gastrointestinal: Yes: Normal Bowel Sounds, Soft. No: Tenderness Extremities: No: Cold Edema: No Integumentary: No: Jaundice Neurological: Yes: Alert, Oriented (x3) Psychiatric: No: Agitated Labs: CBC, BMP 08/10/18 05:30 08/10/18 06:00 Assessment/Plan echo 07/2018 LV function severely reduced EF 20-25%, severe global hypokinesis of LV, nl RV, mild MR, trace TR CXR 08/09 reviewed images: trace L effusion; prior pulm edema pattern resolved, no vascular redistributaiton pattern EKG: sinus nonspecific ST changes, prolonged QTc milvia: NSR a/p: 57F h/o HTN, HLD, DM, chronic systolic HF, CAD, s/p [place] and stent 2000, COPD, CVA p/w acute respiratory failure Acute respiratory failure, acute on chronic syst CHF, h/o mili- CMP: - treated with abx, solumedrol, nebs for possible PNA, COPD exac - infectious work up per primary team, ID consulted - also getting iv lasix for chf, seems to be most likely etiology of resp failure - BNP 1200 (200 baseline prior), congestive changes on CXR, improving on repeat study - intubated initially-->extubated - 08/08: wt down, cr stable, cont iv lasix 40 bid. - 08/09: wt continues to trend down, labs stable. sob much improved, CXR nearly resolved (trace-small L effusion persists). not on lasix at home. would stop IV and change to 40 po daily. -08/10: cont po lasix 40 qd, coreg 25 bid, lisinopril 20. Hold home aldactone for now, till resting bp reassessed in office next week on higher carvedilol dose plus lasix -d/w'd her cardio dr raya. he agrees with plan to increase carvedilol dose , start standing po lasix, and have pt see him next week. ok for dc from cardio pov. VT: - 8 beat run nonsustained monomorphic VT - likely re-entrant rhythm from scar in patient with known systolic dysfunction - BB, HF optimization as doing - pt warrants primary prevn ICD given EF <30% despite optimal med regimen--per outpt cardio Abnormal EKG,prolonged QTc - avoid QT prolonging agents - replete for K >4.0, Mg >2.0 - QT today down to 480 msec range, ok, - tele no R-on-T torsade/PMVT CAD - h/o MO and stent 2000 - continue aspirin, statin - borderline trops, not c/w acs HTN -stable
[2018-08-10] MEDS ORDERED: PNEUMOC 13-VAL CONJ-DIP CRM/PF 0.5 ML DISP.SYRIN IM ONE (13:02)
[2018-08-10] MEDS ORDERED: PNEUMOCOCCAL 23 VACCINE 0.5 ML VIAL IM ONE (15:15)
--- NOTE | 2018-08-10 16:14 | DS ---
Physical Examination Vital Signs: Vital Signs Temperature 97.2 F L 08/10/18 10:00 Pulse Rate 90 08/10/18 14:48 Respiratory Rate 20 08/10/18 14:48 Blood Pressure 108/46 L 08/10/18 14:48 O2 Sat by Pulse Oximetry (%) 96 08/10/18 09:08 Labs: CBC, BMP 08/10/18 05:30 08/10/18 06:00 Discharge Summary Reason For Visit: RESPIRATORY FAILURE,PNEUMONIA Current Active Problems CAD (coronary artery disease) (Acute) CHF (congestive heart failure) (Acute) Diabetes (Acute) Pneumonia (Acute) QT prolongation (Acute) Respiratory failure (Acute) UTI (urinary tract infection) (Acute) Condition: Guarded - Instructions Diet, Activity, Other Instructions: monitor blood sugars need blood test for potassium within one week Referrals: Erin Richard [Primary Care Provider] - 1 Week - Home Medications Comprehensive Discharge Medication List: Ambulatory Orders Aspirin [ASA -] 81 mg PO DAILY 03/14/14 Lisinopril [Prinivil -] 20 mg PO DAILY 10/13/14 Rosuvastatin Calcium [Crestor] 20 mg PO HS 10/13/14 Albuterol Sulfate Inhaler - [Ventolin HFA Inhaler -] 1 - 2 inh IH Q4H PRN Salmeterol/Fluticasone [Advair 500Mcg/50Mcg -] 1 puff IH DAILY 04/21/17 Ammonium Lactate Cream [Lac-Hydrin 12% Cream -] 1 applic TP BID 08/05/18 Albuterol 2.5/Ipratropium 0.5 [Duoneb -] 1 amp NEB RQID #120 amp 08/10/18 Carvedilol [Coreg -] 25 mg PO BID #60 tablet 08/10/18 Cephalexin Monohydrate [Keflex -] 500 mg PO BID #10 capsule 08/10/18 Furosemide [Lasix -] 40 mg PO DAILY #30 tablet 08/10/18 Insulin (Levemir) [Levemir Vial] 15 units SQ HS units 08/10/18 Insulin (Levemir) [Levemir Vial] 22 units SQ DAILY@0700 units 08/10/18 Nebulizer Accessories [A.i.r.s. Nebulizer] 1 each QID #1 kit 08/10/18 Potassium Chloride [K-Dur -] 40 meq PO DAILY #60 tablet.er 08/10/18 Potassium Chloride [Potassium Chloride Oral Liquid] 40 meq PO DAILY #60 cup
[2018-08-10] MEDS: ROSUVASTATIN CA 20 MG TABLET (FP) PO SCH (22:12)
[2018-08-11] MEDS: INSULIN SLIDING SCALE (NOVOLOG) 1 VIAL SQ SCH ×5 (06:39→21:32)
[2018-08-11] MEDS: INSULIN (LEVEMIR) 100 UNITS/ML UNITS SQ SCH ×2 (06:40→21:31)
[2018-08-11] MEDS: HEPARIN NA (PORCINE) 5,000 UNITS/ML 1ML VIAL SQ SCH ×2 (06:40→15:16)
[2018-08-11 07:13] LABS: BASO % 0.6 % (0-2.0); EOS % 3.8 % (0-4.5); HEMATOCRIT 37.1 % (32.4-45.2); HEMOGLOBIN 11.7 GM/dL (10.7-15.3); LYMPH % 28.2 % (8-40); MCH 25.8 pg (25.7-33.7); MCHC 31.4 g/dl (32.0-36.0); MEAN CELL VOLUME 82.1 fl (80-96); MEAN PLT VOLUME 10.3 fl (7.5-11.1); MONO % 8.4 % (3.8-10.2); PLATELET COUNT 157 K/MM3 (134-434); RBC 4.52 M/mm3 (3.60-5.2); RDW 15.3 % (11.6-15.6)
[2018-08-11] MEDS: ALBUTEROL SO4 2.5/IPRATROPIUM 0.5 INH SOL 3 ML VIAL.NEB. NEB SCH ×4 (07:15→20:30)
--- NOTE | 2018-08-11 08:29 | DS ---
Physical Examination Vital Signs: Vital Signs Temperature 98 F 08/11/18 02:00 Pulse Rate 81 08/11/18 07:00 Respiratory Rate 20 08/11/18 07:00 Blood Pressure 108/59 L 08/11/18 07:00 O2 Sat by Pulse Oximetry (%) 97 08/10/18 21:00 Findings/Remarks: 57F h/o HTN, HLD, DM, CHF (EF not known), CAD, s/p CT and stent 2000, COPD, CVA p/w acute respiratory failure. patient intubated and sedated, per report patient complained of difficulty breathing, chest pain, cough and called 911. Was unresponsive on arrival, intubated with impoved O2 sat. In the ER received steroids, nebs, IV abx. Had similar symptoms per family report a week ago, was seen at [facility], was advised to have echo, holter and nuclear stress test which were not done yet. Cardiovascular: Yes: S1, S2 Respiratory: Yes: Regular, CTA Bilaterally Gastrointestinal: Yes: Normal Bowel Sounds, Soft Labs: CBC, BMP 08/11/18 06:10 Discharge Summary Reason For Visit: RESPIRATORY FAILURE,PNEUMONIA Current Active Problems CAD (coronary artery disease) (Acute) CHF (congestive heart failure) (Acute) Diabetes (Acute) Pneumonia (Acute) QT prolongation (Acute) Respiratory failure (Acute) UTI (urinary tract infection) (Acute) Hospital Course: - Problems (1) CAD (coronary artery disease) Assessment/Plan: - h/o CT and stent 2000 - continue aspirin, statin - borderline trops, not c/w acs Code(s): I25.10 - ATHSCL HEART DISEASE OF [place] CORONARY ARTERY W/O ANG PCTRS (2) QT prolongation Assessment/Plan: -Avoid Qtc prolonging agents, Maintain K> 4and Mg > -Tele monitor Code(s): R94.31 - ABNORMAL ELECTROCARDIOGRAM [ECG] [EKG] (3) Diabetes Assessment/Plan: -BGM AC HS -Diabetic diet -Last A1c at 10.1 in 2017 -Repeat A1c -RD consult -Novolog sliding scale -Endocrinology consult Code(s): E11.9 - TYPE 2 DIABETES MELLITUS WITHOUT COMPLICATIONS (4) Respiratory failure Assessment/Plan: -Acute hypoxic respiratory failure likely secondary to pulmonary edema/systolic hF -Unlikely due to any infection -Extubated on 08/06/18, tolerating well on Nasal cannula today--CHECK PULSE OX ON RA -ON IV Zosyn and Vanco--per id--Now off--on po keflex -Blood cultures negative -Bronchodilators -Pulmonary on board Code(s): J96.90 - RESPIRATORY FAILURE, UNSP, UNSP W HYPOXIA OR HYPERCAPNIA Qualifiers: Chronicity: acute Respiratory failure complication: unspecified whether with hypoxia or hypercapnia Qualified Code(s): J96.00 - Acute respiratory failure, unspecified whether with hypoxia or hypercapnia see problem list DVT prophylaxis Physical therapy dc planning Condition: Guarded - Instructions Diet, Activity, Other Instructions: monitor blood sugars need blood test for potassium within one week Referrals: Erin Richard [Primary Care Provider] - 1 Week - Home Medications Comprehensive Discharge Medication List: Ambulatory Orders Aspirin [ASA -] 81 mg PO DAILY 03/14/14 Lisinopril [Prinivil -] 20 mg PO DAILY 10/13/14 Rosuvastatin Calcium [Crestor] 20 mg PO HS 10/13/14 Albuterol Sulfate Inhaler - [Ventolin HFA Inhaler -] 1 - 2 inh IH Q4H PRN Salmeterol/Fluticasone [Advair 500Mcg/50Mcg -] 1 puff IH DAILY 04/21/17 Ammonium Lactate Cream [Lac-Hydrin 12% Cream -] 1 applic TP BID 08/05/18 Albuterol 2.5/Ipratropium 0.5 [Duoneb -] 1 amp NEB RQID #120 amp 08/10/18 Carvedilol [Coreg -] 25 mg PO BID #60 tablet 08/10/18 Cephalexin Monohydrate [Keflex -] 500 mg PO BID #10 capsule 08/10/18 Furosemide [Lasix -] 40 mg PO DAILY #30 tablet 08/10/18 Insulin (Levemir) [Levemir Vial] 15 units SQ HS units 08/10/18 Insulin (Levemir) [Levemir Vial] 22 units SQ DAILY@0700 units 08/10/18 Nebulizer Accessories [A.i.r.s. Nebulizer] 1 each QID #1 kit 08/10/18 Potassium Chloride [K-Dur -] 40 meq PO DAILY #60 tablet.er 08/10/18 Potassium Chloride [Potassium Chloride Oral Liquid] 40 meq PO DAILY #60 cup
[2018-08-11 09:05] LABS: ALBUMIN 3.1 g/dl (3.4-5.0); ALK PHOS 90 U/L (45-117); ANION GAP 8 MMOL/L (8-16); BILIRUBIN,TOTAL 0.5 mg/dL (0.2-1); BLOOD UREA NITROGEN 16 mg/dL (7-18); CALCIUM 8.8 mg/dL (8.5-10.1); CHLORIDE 99 mmol/L (98-107); CO2 31 mmol/L (21-32); CREATININE 0.8 mg/dL (0.55-1.3); GLUCOSE,RANDOM 198 mg/dL (74-106); POTASSIUM 3.6 mmol/L (3.5-5.1); SGOT/AST 18 U/L (15-37); SGPT/ALT 22 U/L (13-61); SODIUM 138 mmol/L (136-145)
[2018-08-11] MEDS: POTASSIUM CHLORIDE ORAL LIQUID 20 MEQ/15 ML PO SCH (10:11)
[2018-08-11] MEDS: CEPHALEXIN MONOHYDRATE 500 MG CAPSULE (UD) PO SCH ×2 (10:12→21:31)
[2018-08-11] MEDS: LISINOPRIL 20 MG TABLET (FP) PO SCH (10:12)
[2018-08-11] MEDS: PANTOPRAZOLE SODIUM 40 MG VIAL IVPUSH SCH (10:12)
[2018-08-11] MEDS: FUROSEMIDE 40 MG TABLET (FP) PO SCH (10:12)
[2018-08-11] MEDS: ASPIRIN 81 MG CHEWABLE TABLETS PO SCH (10:12)
[2018-08-11] MEDS: CARVEDILOL 25 MG TABLET (FP) PO SCH ×2 (10:12→21:31)
--- NOTE | 2018-08-11 11:32 | PN ---
Progress Note, Physician History of Present Illness: PULMONARY ALERT,FEELING BETTER,AMBULATING,-RESP DISTRESS - Current Medication List Current Medications: Active Medications Albuterol Sulfate (Ventolin 0.083% Nebulizer Soln -) 1 amp NEB Q4H PRN PRN Reason: SHORT OF BREATH/WHEEZING Albuterol/Ipratropium (Duoneb -) 1 amp NEB RQID [facility] Last Admin: 08/10/18 20:13 Dose: 1 amp Aspirin (Asa -) 81 mg PO DAILY [facility] Last Admin: 08/11/18 10:12 Dose: 81 mg Carvedilol (Coreg -) 25 mg PO BID [facility] Last Admin: 08/11/18 10:12 Dose: 25 mg Cephalexin HCl (Keflex -) 500 mg PO BID [facility] Last Admin: 08/11/18 10:12 Dose: 500 mg Furosemide (Lasix -) 40 mg PO DAILY [facility] Last Admin: 08/11/18 10:12 Dose: 40 mg Heparin Sodium (Porcine) (Heparin -) 5,000 unit SQ TID [facility] Last Admin: 08/11/18 06:40 Dose: 5,000 unit Insulin Aspart (Novolog Vial Sliding Scale -) 1 vial SQ [facility]; Protocol Last Admin: 08/11/18 06:39 Dose: 2 units Insulin Detemir (Levemir Vial) 15 units SQ [facility] Last Admin: 08/10/18 22:12 Dose: 15 units Insulin Detemir (Levemir Vial) 22 units SQ DAILY@0700 [facility] Last Admin: 08/11/18 06:40 Dose: 22 units Lisinopril (Prinivil) 20 mg PO DAILY [facility] Last Admin: 08/11/18 10:12 Dose: 20 mg Pantoprazole Sodium (Protonix Iv) 40 mg IVPUSH DAILY [facility] Last Admin: 08/11/18 10:12 Dose: 40 mg Potassium Chloride (Potassium Chloride Oral Liquid) 40 meq PO DAILY [facility] Last Admin: 08/11/18 10:11 Dose: 40 meq Rosuvastatin Calcium (Crestor -) 20 mg PO HS [facility] Last Admin: 08/10/18 22:12 Dose: 20 mg - Objective Vital Signs: Vital Signs Temperature 98.3 F 08/11/18 10:00 Pulse Rate 85 08/11/18 10:00 Respiratory Rate 20 08/11/18 10:00 Blood Pressure 110/72 08/11/18 10:00 O2 Sat by Pulse Oximetry (%) 97 08/10/18 21:00 Constitutional: Yes: Well Nourished, Calm Eyes: Yes: WNL HENT: Yes: WNL Neck: Yes: WNL Cardiovascular: Yes: Regular Rate and Rhythm, S1, S2 Respiratory: Yes: Diminished Gastrointestinal: Yes: Normal Bowel Sounds, Soft Extremities: Yes: WNL Edema: No Labs: CBC, BMP 08/11/18 06:10 08/11/18 06:10 INR, PTT INR 0.96 (0.83-1.09) 08/05/18 11:00 Problem List - Problems (1) CAD (coronary artery disease) Code(s): I25.10 - ATHSCL HEART DISEASE OF [place] CORONARY ARTERY W/O ANG PCTRS (2) CHF (congestive heart failure) Code(s): I50.9 - HEART FAILURE, UNSPECIFIED (3) Diabetes Code(s): E11.9 - TYPE 2 DIABETES MELLITUS WITHOUT COMPLICATIONS (4) QT prolongation Code(s): R94.31 - ABNORMAL ELECTROCARDIOGRAM [ECG] [EKG] (5) Respiratory failure Code(s): J96.90 - RESPIRATORY FAILURE, UNSP, UNSP W HYPOXIA OR HYPERCAPNIA Qualifiers: Chronicity: acute Respiratory failure complication: unspecified whether with hypoxia or hypercapnia Qualified Code(s): J96.00 - Acute respiratory failure, unspecified whether with hypoxia or hypercapnia Assessment/Plan ASSESSMENT/PLAN: S/P Acute Respiratory Failure due to APE: etiology unclear Asthma HTN HLD NIDDM GERD CHF CAD History of AMI S/P PCI 2000 (?) COPD CVA with residual Left sided deficit History of hysterectomy R/O PNA Lasix ABX VTE prophylaxis BD TX I & O Supplemental O2 PFTS OUTPATIENT DR MERLOS
--- NOTE | 2018-08-11 11:38 | PN ---
Progress Note (short form) - Note Progress Note: History of Present Illness: no cp, palps, dizzy. sob improving, walking with PT today - Current Medication List Current Medications Albuterol Sulfate (Ventolin 0.083% Nebulizer Soln -) 1 amp NEB Q4H PRN PRN Reason: SHORT OF BREATH/WHEEZING Albuterol/Ipratropium (Duoneb -) 1 amp NEB RQID [facility] Last Admin: 08/10/18 20:13 Dose: 1 amp Aspirin (Asa -) 81 mg PO DAILY [facility] Last Admin: 08/11/18 10:12 Dose: 81 mg Carvedilol (Coreg -) 25 mg PO BID [facility] Last Admin: 08/11/18 10:12 Dose: 25 mg Cephalexin HCl (Keflex -) 500 mg PO BID [facility] Last Admin: 08/11/18 10:12 Dose: 500 mg Furosemide (Lasix -) 40 mg PO DAILY [facility] Last Admin: 08/11/18 10:12 Dose: 40 mg Heparin Sodium (Porcine) (Heparin -) 5,000 unit SQ TID [facility] Last Admin: 08/11/18 06:40 Dose: 5,000 unit Insulin Aspart (Novolog Vial Sliding Scale -) 1 vial SQ [facility]; Protocol Last Admin: 08/11/18 06:39 Dose: 2 units Insulin Detemir (Levemir Vial) 15 units SQ [facility] Last Admin: 08/10/18 22:12 Dose: 15 units Insulin Detemir (Levemir Vial) 22 units SQ DAILY@0700 [facility] Last Admin: 08/11/18 06:40 Dose: 22 units Lisinopril (Prinivil) 20 mg PO DAILY [facility] Last Admin: 08/11/18 10:12 Dose: 20 mg Pantoprazole Sodium (Protonix Iv) 40 mg IVPUSH DAILY [facility] Last Admin: 08/11/18 10:12 Dose: 40 mg Potassium Chloride (Potassium Chloride Oral Liquid) 40 meq PO DAILY [facility] Last Admin: 08/11/18 10:11 Dose: 40 meq Rosuvastatin Calcium (Crestor -) 20 mg PO HS [facility] Last Admin: 08/10/18 22:12 Dose: 20 mg - Objective Vital Signs: Vital Signs Period Temp Pulse Resp BP Sys/Jaimes Pulse Ox Last 24 Hr 98 F-98.9 F 81-90 18-20 96-110/46-72 92-97 Constitutional: Yes: No Distress, Calm Eyes: No: Sclera Icterus HENT: No: Nasal Congestion Cardiovascular: Yes: Regular Rate and Rhythm, S1, S2, Other (PMI non diplaced). No: JVD, Gallop, Murmur Respiratory: Yes: CTA Bilaterally. No: Accessory Muscle Use, Rales, Wheezes Gastrointestinal: Yes: Normal Bowel Sounds, Soft. No: Tenderness Extremities: No: Cold Edema: No Integumentary: No: Jaundice Neurological: Yes: Alert, Oriented (x3) Psychiatric: No: Agitated Assessment/Plan echo 07/2018 LV function severely reduced EF 20-25%, severe global hypokinesis of LV, nl RV, mild MR, trace TR CXR 08/09 reviewed images: trace L effusion; prior pulm edema pattern resolved, no vascular redistributaiton pattern EKG: sinus nonspecific ST changes, prolonged QTc tele: NSR a/p: 57F h/o HTN, HLD, DM, chronic systolic HF, CAD, s/p [place] and stent 2000, COPD, CVA p/w acute respiratory failure Acute respiratory failure, acute on chronic syst CHF, h/o mili- CMP: - treated with abx, solumedrol, nebs for possible PNA, COPD exac - infectious work up per primary team, ID consulted - also getting iv lasix for chf, seems to be most likely etiology of resp failure - BNP 1200 (200 baseline prior), congestive changes on CXR, improving on repeat study - intubated initially-->extubated - 08/08: wt down, cr stable, cont iv lasix 40 bid. - 08/09: wt continues to trend down, labs stable. sob much improved, CXR nearly resolved (trace-small L effusion persists). not on lasix at home. would stop IV and change to 40 po daily. -08/10-: cont po lasix 40 qd, coreg 25 bid, lisinopril 20. Hold home aldactone for now, till resting bp reassessed in office next week on higher carvedilol dose plus lasix -per Dr. Lima: d/w'd her cardio dr raya. he agrees with plan to increase carvedilol dose, start standing po lasix, and have pt see him next week. ok for dc from cardio pov. VT: - 8 beat run nonsustained monomorphic VT - likely re-entrant rhythm from scar in patient with known systolic dysfunction - BB, HF optimization as doing - pt warrants primary prevn ICD given EF <30% despite optimal med regimen--per outpt cardio Abnormal EKG,prolonged QTc - avoid QT prolonging agents - replete for K >4.0, Mg >2.0 - QT today down to 480 msec range, ok, - tele no R-on-T torsade/PMVT CAD - h/o [place] and stent 2000 - continue aspirin, statin - borderline trops, not c/w acs HTN -stable
[2018-08-11 18:15] LABS: BASO % 0.3 % (0-2.0); EOS % 2.7 % (0-4.5); HEMATOCRIT 33.1 % (32.4-45.2); HEMOGLOBIN 10.9 GM/dL (10.7-15.3); LYMPH % 23.6 % (8-40); MEAN CELL VOLUME 81.9 fl (80-96); MEAN PLT VOLUME 10.2 fl (7.5-11.1); MONO % 8.3 % (3.8-10.2); NEUT % 65.1 % (42.8-82.8); PLATELET COUNT 165 K/MM3 (134-434); RBC 4.04 M/mm3 (3.60-5.2); RDW 15.1 % (11.6-15.6); WHITE BLOOD COUNT 10.7 K/mm3 (4.0-10.0)
[2018-08-11 20:37] LABS: HEMATOCRIT 33.1 % (32.4-45.2); HEMOGLOBIN 10.8 GM/dL (10.7-15.3); MCH 26.6 pg (25.7-33.7); MCHC 32.6 g/dl (32.0-36.0); MEAN CELL VOLUME 81.4 fl (80-96); MEAN PLT VOLUME 10.6 fl (7.5-11.1); PLATELET COUNT 167 K/MM3 (134-434); RBC 4.07 M/mm3 (3.60-5.2); RDW 15.1 % (11.6-15.6); WHITE BLOOD COUNT 10.5 K/mm3 (4.0-10.0)
[2018-08-11] MEDS: ROSUVASTATIN CA 20 MG TABLET (FP) PO SCH (21:31)
[2018-08-12] MEDS: INSULIN SLIDING SCALE (NOVOLOG) 1 VIAL SQ SCH ×4 (06:52→23:20)
[2018-08-12] MEDS: INSULIN (LEVEMIR) 100 UNITS/ML UNITS SQ SCH ×2 (06:53→23:19)
[2018-08-12 07:55] LABS: BASO % 0.6 % (0-2.0); EOS % 3.8 % (0-4.5); HEMATOCRIT 35.9 % (32.4-45.2); HEMOGLOBIN 11.3 GM/dL (10.7-15.3); LYMPH % 26.7 % (8-40); MCH 25.8 pg (25.7-33.7); MCHC 31.4 g/dl (32.0-36.0); MONO % 7.5 % (3.8-10.2); NEUT % 61.4 % (42.8-82.8); PLATELET COUNT 181 K/MM3 (134-434); RBC 4.38 M/mm3 (3.60-5.2); RDW 15.6 % (11.6-15.6); WHITE BLOOD COUNT 9.7 K/mm3 (4.0-10.0)
[2018-08-12] MEDS: ALBUTEROL SO4 2.5/IPRATROPIUM 0.5 INH SOL 3 ML VIAL.NEB. NEB SCH ×3 (08:20→16:52)
[2018-08-12 08:21] LABS: ALBUMIN 3.1 g/dl (3.4-5.0); ALK PHOS 95 U/L (45-117); ANION GAP 7 MMOL/L (8-16); BILIRUBIN,TOTAL 0.5 mg/dL (0.2-1); BLOOD UREA NITROGEN 18 mg/dL (7-18); CALCIUM 9.2 mg/dL (8.5-10.1); CHLORIDE 99 mmol/L (98-107); CO2 31 mmol/L (21-32); GLUCOSE,RANDOM 267 mg/dL (74-106); POTASSIUM 3.9 mmol/L (3.5-5.1); SGOT/AST 11 U/L (15-37); SGPT/ALT 20 U/L (13-61); SODIUM 137 mmol/L (136-145); TOT PROT 7.3 g/dl (6.4-8.2)
--- NOTE | 2018-08-12 09:29 | DS ---
Physical Examination Vital Signs: Vital Signs Temperature 98.3 F 08/12/18 05:00 Pulse Rate 80 08/12/18 08:42 Respiratory Rate 20 08/12/18 08:42 Blood Pressure 126/76 08/12/18 08:42 O2 Sat by Pulse Oximetry (%) 97 08/11/18 21:00 Cardiovascular: Yes: Regular Rate and Rhythm Respiratory: Yes: Regular, CTA Bilaterally Gastrointestinal: Yes: Normal Bowel Sounds, Soft Labs: CBC, BMP 08/12/18 06:50 08/12/18 06:50 Discharge Summary Reason For Visit: RESPIRATORY FAILURE,PNEUMONIA Current Active Problems CAD (coronary artery disease) (Acute) CHF (congestive heart failure) (Acute) Diabetes (Acute) Pneumonia (Acute) QT prolongation (Acute) Respiratory failure (Acute) UTI (urinary tract infection) (Acute) Hospital Course: - Problems (1) CAD (coronary artery disease) Assessment/Plan: - h/o [place] and stent 2000 - continue aspirin, statin - borderline trops, not c/w acs Code(s): I25.10 - ATHSCL HEART DISEASE OF [place] CORONARY ARTERY W/O ANG PCTRS (2) QT prolongation Assessment/Plan: -Avoid Qtc prolonging agents, Maintain K> 4and Mg > -Tele monitor Code(s): R94.31 - ABNORMAL ELECTROCARDIOGRAM [ECG] [EKG] (3) Diabetes Assessment/Plan: -BGM AC HS -Diabetic diet -Last A1c at 10.1 in 2017 -Repeat A1c -RD consult -Novolog sliding scale -Endocrinology consult Code(s): E11.9 - TYPE 2 DIABETES MELLITUS WITHOUT COMPLICATIONS (4) Respiratory failure Assessment/Plan: -Acute hypoxic respiratory failure likely secondary to pulmonary edema/systolic hF -Unlikely due to any infection -Extubated on 08/06/18, tolerating well on Nasal cannula today--CHECK PULSE OX ON RA -ON IV Zosyn and Vanco--per id--Now off--on po keflex -Blood cultures negative -Bronchodilators -Pulmonary on board Code(s): J96.90 - RESPIRATORY FAILURE, UNSP, UNSP W HYPOXIA OR HYPERCAPNIA Qualifiers: Chronicity: acute Respiratory failure complication: unspecified whether with hypoxia or hypercapnia Qualified Code(s): J96.00 - Acute respiratory failure, unspecified whether with hypoxia or hypercapnia (5) Hematuria hgb stable monitor ua and cs outpatient monitoring if ua neg DVT prophylaxis Physical therapy dc planning Condition: Guarded - Instructions Diet, Activity, Other Instructions: monitor blood sugars need blood test for potassium within one week Referrals: Erin Richard [Primary Care Provider] - 1 Week - Home Medications Comprehensive Discharge Medication List: Ambulatory Orders Aspirin [ASA -] 81 mg PO DAILY 03/14/14 Lisinopril [Prinivil -] 20 mg PO DAILY 10/13/14 Rosuvastatin Calcium [Crestor] 20 mg PO HS 10/13/14 Albuterol Sulfate Inhaler - [Ventolin HFA Inhaler -] 1 - 2 inh IH Q4H PRN Salmeterol/Fluticasone [Advair 500Mcg/50Mcg -] 1 puff IH DAILY 04/21/17 Ammonium Lactate Cream [Lac-Hydrin 12% Cream -] 1 applic TP BID 08/05/18 Albuterol 2.5/Ipratropium 0.5 [Duoneb -] 1 amp NEB RQID #120 amp 08/10/18 Carvedilol [Coreg -] 25 mg PO BID #60 tablet 08/10/18 Cephalexin Monohydrate [Keflex -] 500 mg PO BID #10 capsule 08/10/18 Furosemide [Lasix -] 40 mg PO DAILY #30 tablet 08/10/18 Insulin (Levemir) [Levemir Vial] 15 units SQ HS units 08/10/18 Insulin (Levemir) [Levemir Vial] 22 units SQ DAILY@0700 units 08/10/18 Nebulizer Accessories [A.i.r.s. Nebulizer] 1 each QID #1 kit 08/10/18 Potassium Chloride [K-Dur -] 40 meq PO DAILY #60 tablet.er 08/10/18 Potassium Chloride [Potassium Chloride Oral Liquid] 40 meq PO DAILY #60 cup
[2018-08-12] MEDS: CEPHALEXIN MONOHYDRATE 500 MG CAPSULE (UD) PO SCH (10:27)
[2018-08-12] MEDS: FUROSEMIDE 40 MG TABLET (FP) PO SCH (10:27)
[2018-08-12] MEDS: LISINOPRIL 20 MG TABLET (FP) PO SCH (10:27)
[2018-08-12] MEDS: POTASSIUM CHLORIDE ORAL LIQUID 20 MEQ/15 ML PO SCH (10:27)
[2018-08-12] MEDS: CARVEDILOL 25 MG TABLET (FP) PO SCH ×2 (10:27→23:17)
[2018-08-12] MEDS: PANTOPRAZOLE SODIUM 40 MG VIAL IVPUSH SCH (10:27)
[2018-08-12 11:09] LABS: URINE APPEARANCE SLCLOUDY; URINE BILIRUBIN NEGATIVE (<2.0 mg/dL); URINE COLOR YELLOW; URINE GLUCOSE (UA) 3+ (NEGATIVE); URINE KETONE NEGATIVE (NEGATIVE); URINE LEUK ESTERASE 2+ (NEGATIVE); URINE NITRITE NEGATIVE (NEGATIVE); URINE PROTEIN NEGATIVE (NEGATIVE); URINE UROBILINOGEN NEGATIVE mg/dL (0.2-1.0)
[2018-08-12 11:11] LABS: EPI CELLS RARE /HPF (FEW); URINE BACTERIA RARE /hpf (NONE SEEN); URINE HYALINE CAST 3 /lpf; URINE MUCUS RARE
--- NOTE | 2018-08-12 11:41 | PN ---
Progress Note (short form) - Note Progress Note: History of Present Illness: sob "much better" than before. did well with PT walking in [place] today no wheezing no cp no palpitations no syncope +blood in stool vs urine today no cigs - Current Medication List Current Medications Generic Name Dose Route Start Last Admin Trade Name Freq PRN Reason Stop Dose Admin Albuterol Sulfate 1 amp 08/07/18 16:47 Ventolin 0.083% Nebulizer Soln - NEB Q4H PRN SHORT OF BREATH/WHEEZING Albuterol/Ipratropium 1 amp 08/07/18 20:00 08/12/18 08:20 Duoneb - NEB 1 amp RQID [facility] Administration Aspirin 81 mg 08/08/18 10:00 08/11/18 10:12 Asa - PO 81 mg DAILY [facility] Administration Carvedilol 25 mg 08/09/18 12:20 08/12/18 10:27 Coreg - PO 25 mg BID [facility] Administration Cephalexin HCl 500 mg 08/09/18 22:00 08/12/18 10:27 Keflex - PO 500 mg BID [facility] Administration Furosemide 40 mg 08/09/18 12:30 08/12/18 10:27 Lasix - PO 40 mg DAILY [facility] Administration Heparin Sodium (Porcine) 5,000 unit 08/07/18 22:00 08/11/18 15:16 Heparin - SQ Not Given TID [facility] Insulin Aspart 1 vial 08/07/18 22:00 08/12/18 06:52 Novolog Vial Sliding Scale - SQ 6 units ACHS [facility] Administration Protocol Insulin Detemir 15 units 08/08/18 22:00 08/11/18 21:31 Levemir Vial SQ 15 units HS [facility] Administration Insulin Detemir 22 units 08/09/18 07:00 08/12/18 06:53 Levemir Vial SQ 22 units DAILY@0700 [facility] Administration Lisinopril 20 mg 08/08/18 10:00 08/12/18 10:27 Prinivil PO 20 mg DAILY [facility] Administration Pantoprazole Sodium 40 mg 08/08/18 10:00 08/12/18 10:27 Protonix Iv IVPUSH 40 mg DAILY [facility] Administration Potassium Chloride 40 meq 08/10/18 11:15 08/12/18 10:27 Potassium Chloride Oral Liquid PO 40 meq DAILY [facility] Administration Rosuvastatin Calcium 20 mg 08/07/18 22:00 08/11/18 21:31 Crestor - PO 20 mg HS [facility] Administration - Objective Vital Signs: Vital Signs Period Temp Pulse Resp BP Sys/Jaimes Pulse Ox Last 24 Hr 98.3 F-98.8 F 80-101 18-20 98-126/51-76 97-99 Constitutional: Yes: No Distress, Calm Eyes: No: Sclera Icterus HENT: No: Nasal Congestion Cardiovascular: Yes: Regular Rate and Rhythm, S1, S2, Other (PMI non diplaced). No: JVD, Gallop, Murmur Respiratory: Yes: CTA Bilaterally. No: Accessory Muscle Use, Rales, Wheezes Gastrointestinal: Yes: Normal Bowel Sounds, Soft. No: Tenderness Extremities: No: Cold Edema: No Integumentary: No: Jaundice Neurological: Yes: Alert, Oriented (x3) Psychiatric: No: Agitated Labs: CBC, BMP 08/12/18 06:50 08/12/18 06:50 Assessment/Plan echo 07/2018 LV function severely reduced EF 20-25%, severe global hypokinesis of LV, nl RV, mild MR, trace TR CXR 08/09 reviewed images: trace L effusion; prior pulm edema pattern resolved, no vascular redistributaiton pattern EKG: sinus nonspecific ST changes, prolonged QTc tele: sr a/p: 57F h/o HTN, HLD, DM, chronic systolic HF, CAD, s/p [place] and stent 2000, COPD, CVA p/w acute respiratory failure Acute respiratory failure, acute on chronic syst CHF, h/o mili- CMP: - treated with abx, solumedrol, nebs for possible PNA, COPD exac - infectious work up per primary team, ID consulted - also getting iv lasix for chf, seems to be most likely etiology of resp failure - BNP 1200 (200 baseline prior), congestive changes on CXR, improving on repeat study - intubated initially-->extubated - 08/08: wt down, cr stable, cont iv lasix 40 bid. - 08/09: wt continues to trend down, labs stable. sob much improved, CXR nearly resolved (trace-small L effusion persists). not on lasix at home. would stop IV and change to 40 po daily. -08/10-: cont po lasix 40 qd, coreg 25 bid, lisinopril 20. Hold home aldactone for now, till resting bp reassessed in office next week on higher carvedilol dose plus lasix -d/w'd her cardio dr raya. he agrees with plan to increase carvedilol dose , start standing po lasix, and have pt see him next week. VT: - 8 beat run nonsustained monomorphic VT - likely re-entrant rhythm from scar in patient with known systolic dysfunction - BB, HF optimization as doing - pt warrants primary prevn ICD given EF <30% despite optimal med regimen--per outpt cardio Abnormal EKG,prolonged QTc - avoid QT prolonging agents - replete for K >4.0, Mg >2.0 - QT today down to 480 msec range, ok, - tele no R-on-T torsade/PMVT CAD - h/o [place] and stent 2000 - continue aspirin, statin - borderline trops, not c/w acs HTN -stable
--- NOTE | 2018-08-12 14:36 | PN ---
Progress Note (short form) - Note Progress Note: Breathing feels overall better. No CP. Intake & Output 08/09/18 08/10/18 08/11/18 08/12/18 23:59 23:59 23:59 23:59 Intake Total 100 360 490 0 Output Total 850 1150 Balance -750 -790 490 0 Weight 166 lb 3.2 oz 169 lb 169 lb 12.8 oz 168 lb Last Vital Signs Temp Pulse Resp BP Pulse Ox 98.3 F 80 20 126/76 97 08/12/18 05:00 08/12/18 08:42 08/12/18 08:42 08/12/18 08:42 08/11/18 21:00 Active Medications Albuterol Sulfate (Ventolin 0.083% Nebulizer Soln -) 1 amp NEB Q4H PRN PRN Reason: SHORT OF BREATH/WHEEZING Albuterol/Ipratropium (Duoneb -) 1 amp NEB RQID [facility] Last Admin: 08/12/18 12:03 Dose: 1 amp Aspirin (Asa -) 81 mg PO DAILY [facility] Last Admin: 08/11/18 10:12 Dose: 81 mg Carvedilol (Coreg -) 25 mg PO BID [facility] Last Admin: 08/12/18 10:27 Dose: 25 mg Cephalexin HCl (Keflex -) 500 mg PO BID [facility] Last Admin: 08/12/18 10:27 Dose: 500 mg Furosemide (Lasix -) 40 mg PO DAILY [facility] Last Admin: 08/12/18 10:27 Dose: 40 mg Heparin Sodium (Porcine) (Heparin -) 5,000 unit SQ TID [facility] Last Admin: 08/11/18 15:16 Dose: Not Given Insulin Aspart (Novolog Vial Sliding Scale -) [address] [facility]; Protocol Last Admin: 08/12/18 11:50 Dose: 4 units Insulin Detemir (Levemir Vial) 15 units SQ HS [facility] Last Admin: 08/11/18 21:31 Dose: 15 units Insulin Detemir (Levemir Vial) 22 units SQ DAILY@0700 [facility] Last Admin: 08/12/18 06:53 Dose: 22 units Lisinopril (Prinivil) 20 mg PO DAILY [facility] Last Admin: 08/12/18 10:27 Dose: 20 mg Pantoprazole Sodium (Protonix Iv) 40 mg IVPUSH DAILY [facility] Last Admin: 08/12/18 10:27 Dose: 40 mg Potassium Chloride (Potassium Chloride Oral Liquid) 40 meq PO DAILY [facility] Last Admin: 08/12/18 10:27 Dose: 40 meq Rosuvastatin Calcium (Crestor -) 20 mg PO HS [facility] Last Admin: 08/11/18 21:31 Dose: 20 mg GENERAL: NAD, awake and alert HEENT: NCAT PERRLA, sclera anicteric, conjunctiva clear. No lid lag. NECK: supple without lymphadenopathy, JVD, or masses. LUNGS: Less bilateral rales HEART: RR tachy, normal S1 and S2 without m/r/g ABDOMEN: Soft, NT +BS, no guarding, no rebound, no masses. MUSCULOSKELETAL: Normal range of motion at all joints. No bony deformities or tenderness. UPPER EXTREMITIES: 2+ pulses, warm, well-perfused. No cyanosis. No clubbing. Cap refill <2 seconds. No peripheral edema. LOWER EXTREMITIES: 2+ pulses, warm, well-perfused. No calf tenderness. No peripheral edema. NEUROLOGICAL: Non-focal SKIN: Warm, dry, normal turgor, no rashes or lesions noted. Laboratory Results - last 24 hr 08/11/18 08/11/18 08/11/18 15:37 16:50 20:00 WBC 10.7 H 10.5 H RBC 4.04 4.07 Hgb 10.9 10.8 Hct 33.1 33.1 MCV 81.9 81.4 MCH 27.0 26.6 MCHC 33.0 32.6 RDW 15.1 15.1 Plt Count 165 167 MPV 10.2 10.6 Absolute Neuts (auto) 6.9 Neutrophils % 65.1 Lymphocytes % 23.6 Monocytes % 8.3 Eosinophils % 2.7 Basophils % 0.3 Nucleated RBC % 0 Sodium Potassium Chloride Carbon Dioxide Anion Gap BUN Creatinine Creat Clearance w eGFR POC Glucometer 249 Random Glucose Calcium Total Bilirubin AST ALT Alkaline Phosphatase Total Protein Albumin Urine Color Urine Appearance Urine pH Ur Specific [place] Urine Protein Urine Glucose (UA) Urine Ketones Urine Blood Urine Nitrite Urine Bilirubin Urine Urobilinogen Ur Leukocyte Esterase Urine WBC (Auto) Urine RBC (Auto) Ur Epithelial Cells Urine Bacteria Hyaline Casts Urine Mucus Stool Occult Blood 08/11/18 08/12/18 08/12/18 21:30 05:51 06:50 WBC 9.7 RBC 4.38 Hgb 11.3 Hct 35.9 MCV 82.0 MCH 25.8 MCHC 31.4 L RDW 15.6 Plt Count 181 MPV 10.0 Absolute Neuts (auto) 6.0 Neutrophils % 61.4 Lymphocytes % 26.7 Monocytes % 7.5 Eosinophils % 3.8 Basophils % 0.6 Nucleated RBC % 0 Sodium Potassium Chloride Carbon Dioxide Anion Gap BUN Creatinine Creat Clearance w eGFR POC Glucometer 263 253 Random Glucose Calcium Total Bilirubin AST ALT Alkaline Phosphatase Total Protein Albumin Urine Color Urine Appearance Urine pH Ur Specific [place] Urine Protein Urine Glucose (UA) Urine Ketones Urine Blood Urine Nitrite Urine Bilirubin Urine Urobilinogen Ur Leukocyte Esterase Urine WBC (Auto) Urine RBC (Auto) Ur Epithelial Cells Urine Bacteria Hyaline Casts Urine Mucus Stool Occult Blood 08/12/18 08/12/18 08/12/18 06:50 10:30 11:49 WBC RBC Hgb Hct MCV MCH MCHC RDW Plt Count MPV Absolute Neuts (auto) Neutrophils % Lymphocytes % Monocytes % Eosinophils % Basophils % Nucleated RBC % Sodium 137 Potassium 3.9 Chloride 99 Carbon Dioxide 31 Anion Gap 7 L BUN 18 Creatinine 1.0 Creat Clearance w eGFR 57.15 POC Glucometer 246 Random Glucose 267 H Calcium 9.2 Total Bilirubin 0.5 AST 11 L ALT 20 Alkaline Phosphatase 95 Total Protein 7.3 Albumin 3.1 L Urine Color Yellow Urine Appearance Slcloudy Urine pH 5.0 Ur Specific [place] 1.026 Urine Protein Negative Urine Glucose (UA) 3+ H Urine Ketones Negative Urine Blood 1+ H Urine Nitrite Negative Urine Bilirubin Negative Urine Urobilinogen Negative Ur Leukocyte Esterase 2+ H Urine WBC (Auto) 67 Urine RBC (Auto) 4 Ur Epithelial Cells Rare Urine Bacteria Rare Hyaline Casts 3 Urine Mucus Rare Stool Occult Blood 08/12/18 12:35 WBC RBC Hgb Hct MCV MCH MCHC RDW Plt Count MPV Absolute Neuts (auto) Neutrophils % Lymphocytes % Monocytes % Eosinophils % Basophils % Nucleated RBC % Sodium Potassium Chloride Carbon Dioxide Anion Gap BUN Creatinine Creat Clearance w eGFR POC Glucometer Random Glucose Calcium Total Bilirubin AST ALT Alkaline Phosphatase Total Protein Albumin Urine Color Urine Appearance Urine pH Ur Specific [place] Urine Protein Urine Glucose (UA) Urine Ketones Urine Blood Urine Nitrite Urine Bilirubin Urine Urobilinogen Ur Leukocyte Esterase Urine WBC (Auto) Urine RBC (Auto) Ur Epithelial Cells Urine Bacteria Hyaline Casts Urine Mucus Stool Occult Blood Positive ASSESSMENT/PLAN: Acute Respiratory Failure due to APE: etiology unclear Asthma HTN HLD NIDDM GERD CHF CAD History of AMI S/P PCI 2000 (?) COPD CVA with residual Left sided deficit History of hysterectomy R/O PNA Lasix Keflex VTE prophylaxis BD TX D/C planning Dr Zimmerman
[2018-08-12] MEDS: ROSUVASTATIN CA 20 MG TABLET (FP) PO SCH (23:17)
[2018-08-13 06:58] LABS: BASO % 0.4 % (0-2.0); EOS % 3.9 % (0-4.5); HEMOGLOBIN 10.6 GM/dL (10.7-15.3); LYMPH % 29.1 % (8-40); MCH 25.6 pg (25.7-33.7); MCHC 31.1 g/dl (32.0-36.0); MEAN CELL VOLUME 82.3 fl (80-96); MEAN PLT VOLUME 10.1 fl (7.5-11.1); MONO % 8.2 % (3.8-10.2); NEUT % 58.4 % (42.8-82.8); PLATELET COUNT 174 K/MM3 (134-434); RBC 4.14 M/mm3 (3.60-5.2); WHITE BLOOD COUNT 9.2 K/mm3 (4.0-10.0)
[2018-08-13] MEDS: INSULIN SLIDING SCALE (NOVOLOG) 1 VIAL SQ SCH ×2 (07:06→12:04)
[2018-08-13] MEDS: INSULIN (LEVEMIR) 100 UNITS/ML UNITS SQ SCH (07:06)
[2018-08-13 07:21] LABS: ALBUMIN 3.1 g/dl (3.4-5.0); ALK PHOS 87 U/L (45-117); ANION GAP 9 MMOL/L (8-16); BILIRUBIN,TOTAL 0.5 mg/dL (0.2-1); BLOOD UREA NITROGEN 16 mg/dL (7-18); CALCIUM 8.6 mg/dL (8.5-10.1); CHLORIDE 99 mmol/L (98-107); CO2 29 mmol/L (21-32); CREATININE 0.9 mg/dL (0.55-1.3); GLUCOSE,RANDOM 229 mg/dL (74-106); POTASSIUM 4.2 mmol/L (3.5-5.1); SGOT/AST 9 U/L (15-37); SGPT/ALT 19 U/L (13-61); SODIUM 137 mmol/L (136-145); TOT PROT 6.9 g/dl (6.4-8.2)
[2018-08-13] MEDS ORDERED: PT OWN MED DRAWER 7, Y5N ONE (09:52)
[2018-08-13] MEDS: FUROSEMIDE 40 MG TABLET (FP) PO SCH (09:56)
[2018-08-13] MEDS: CARVEDILOL 25 MG TABLET (FP) PO SCH (09:56)
[2018-08-13] MEDS: POTASSIUM CHLORIDE ORAL LIQUID 20 MEQ/15 ML PO SCH (09:56)
[2018-08-13] MEDS: LISINOPRIL 20 MG TABLET (FP) PO SCH (09:56)
[2018-08-13] MEDS: PANTOPRAZOLE SODIUM 40 MG VIAL IVPUSH SCH (09:56)
--- NOTE | 2018-08-13 09:59 | DS ---
Physical Examination Vital Signs: Vital Signs Temperature 98.3 F 08/13/18 06:00 Pulse Rate 76 08/13/18 06:00 Respiratory Rate 20 08/13/18 06:00 Blood Pressure 108/60 08/13/18 06:00 O2 Sat by Pulse Oximetry (%) 97 08/12/18 21:00 Cardiovascular: Yes: Regular Rate and Rhythm Respiratory: Yes: Regular, CTA Bilaterally Gastrointestinal: Yes: Normal Bowel Sounds, Soft Labs: CBC, BMP 08/13/18 05:30 08/13/18 05:30 Discharge Summary Reason For Visit: RESPIRATORY FAILURE,PNEUMONIA Current Active Problems CAD (coronary artery disease) (Acute) CHF (congestive heart failure) (Acute) Diabetes (Acute) Pneumonia (Acute) QT prolongation (Acute) Respiratory failure (Acute) UTI (urinary tract infection) (Acute) Hospital Course: - Problems (1) CAD (coronary artery disease) Assessment/Plan: - h/o CT and stent 2000 - continue aspirin, statin - borderline trops, not c/w acs Code(s): I25.10 - ATHSCL HEART DISEASE OF [place] CORONARY ARTERY W/O ANG PCTRS (2) QT prolongation Assessment/Plan: -Avoid Qtc prolonging agents, Maintain K> 4and Mg > -Tele monitor Code(s): R94.31 - ABNORMAL ELECTROCARDIOGRAM [ECG] [EKG] (3) Diabetes Assessment/Plan: -BGM AC HS -Diabetic diet -Last A1c at 10.1 in 2017 -Repeat A1c -RD consult -Novolog sliding scale -Endocrinology consult Code(s): E11.9 - TYPE 2 DIABETES MELLITUS WITHOUT COMPLICATIONS (4) Respiratory failure Assessment/Plan: -Acute hypoxic respiratory failure likely secondary to pulmonary edema/systolic hF -Unlikely due to any infection -Extubated on 08/06/18, tolerating well on Nasal cannula today--CHECK PULSE OX ON RA -ON IV Zosyn and Vanco--per id--Now off--on po keflex -Blood cultures negative -Bronchodilators -Pulmonary on board Code(s): J96.90 - RESPIRATORY FAILURE, UNSP, UNSP W HYPOXIA OR HYPERCAPNIA Qualifiers: Chronicity: acute Respiratory failure complication: unspecified whether with hypoxia or hypercapnia Qualified Code(s): J96.00 - Acute respiratory failure, unspecified whether with hypoxia or hypercapnia (5) Hematuria hgb stable monitor ua and cs--NEGATIVE outpatient monitoring if ua neg (6) Hemorrhoids hgb stable seen by gi outpatient monitoring and colon--d/w pt DVT prophylaxis Physical therapy dc planning Condition: Guarded - Instructions Diet, Activity, Other Instructions: monitor blood sugars need blood test for potassium within one week Referrals: Erin Richard [Primary Care Provider] - 1 Week Disposition: LONG TERM FACILITY - Home Medications Comprehensive Discharge Medication List: Ambulatory Orders Aspirin [ASA -] 81 mg PO DAILY 03/14/14 Lisinopril [Prinivil -] 20 mg PO DAILY 10/13/14 Rosuvastatin Calcium [Crestor] 20 mg PO HS 10/13/14 Albuterol Sulfate Inhaler - [Ventolin HFA Inhaler -] 1 - 2 inh IH Q4H PRN Salmeterol/Fluticasone [Advair 500Mcg/50Mcg -] 1 puff IH DAILY 04/21/17 Ammonium Lactate Cream [Lac-Hydrin 12% Cream -] 1 applic TP BID 08/05/18 Albuterol 2.5/Ipratropium 0.5 [Duoneb -] 1 amp NEB RQID #120 amp 08/10/18 Carvedilol [Coreg -] 25 mg PO BID #60 tablet 08/10/18 Cephalexin Monohydrate [Keflex -] 500 mg PO BID #10 capsule 08/10/18 Furosemide [Lasix -] 40 mg PO DAILY #30 tablet 08/10/18 Insulin (Levemir) [Levemir Vial] 15 units SQ HS units 08/10/18 Insulin (Levemir) [Levemir Vial] 22 units SQ DAILY@0700 units 08/10/18 Nebulizer Accessories [A.i.r.s. Nebulizer] 1 each QID #1 kit 08/10/18 Potassium Chloride [K-Dur -] 40 meq PO DAILY #60 tablet.er 08/10/18 Potassium Chloride [Potassium Chloride Oral Liquid] 40 meq PO DAILY #60 cup
--- NOTE | 2018-08-13 11:21 | PN ---
Progress Note, Physician History of Present Illness: PULMONARY ALERT,NO DISTRESS,-SOB,-CP - Current Medication List Current Medications: Active Medications Aspirin (Asa -) 81 mg PO DAILY [facility] Last Admin: 08/11/18 10:12 Dose: 81 mg Carvedilol (Coreg -) 25 mg PO BID [facility] Last Admin: 08/13/18 09:56 Dose: 25 mg Furosemide (Lasix -) 40 mg PO DAILY [facility] Last Admin: 08/13/18 09:56 Dose: 40 mg Heparin Sodium (Porcine) (Heparin -) 5,000 unit SQ TID [facility] Last Admin: 08/11/18 15:16 Dose: Not Given Insulin Aspart (Novolog Vial Sliding Scale -) 1 vial SQ [facility]; Protocol Last Admin: 08/13/18 07:06 Dose: 6 units Insulin Detemir (Levemir Vial) 15 units SQ [facility] Last Admin: 08/12/18 23:19 Dose: 15 units Insulin Detemir (Levemir Vial) 22 units SQ DAILY@0700 [facility] Last Admin: 08/13/18 07:06 Dose: 22 units Lisinopril (Prinivil) 20 mg PO DAILY [facility] Last Admin: 08/13/18 09:56 Dose: 20 mg Pantoprazole Sodium (Protonix Iv) 40 mg IVPUSH DAILY [facility] Last Admin: 08/13/18 09:56 Dose: 40 mg Potassium Chloride (Potassium Chloride Oral Liquid) 40 meq PO DAILY [facility] Last Admin: 08/13/18 09:56 Dose: 40 meq Rosuvastatin Calcium (Crestor -) 20 mg PO [facility] Last Admin: 08/12/18 23:17 Dose: 20 mg - Objective Vital Signs: Vital Signs Temperature 98 F 08/13/18 10:00 Pulse Rate 86 08/13/18 10:00 Respiratory Rate 18 08/13/18 10:00 Blood Pressure 126/70 08/13/18 10:00 O2 Sat by Pulse Oximetry (%) 97 08/12/18 21:00 Constitutional: Yes: Well Nourished, Calm Eyes: Yes: WNL HENT: Yes: WNL Neck: Yes: WNL Cardiovascular: Yes: Regular Rate and Rhythm, S1, S2 Respiratory: Yes: Diminished Gastrointestinal: Yes: Normal Bowel Sounds, Soft Extremities: Yes: WNL Edema: No Labs: CBC, BMP 08/13/18 05:30 08/13/18 05:30 INR, PTT INR 0.96 (0.83-1.09) 08/05/18 11:00 Problem List - Problems (1) CAD (coronary artery disease) Code(s): I25.10 - ATHSCL HEART DISEASE OF [place] CORONARY ARTERY W/O ANG PCTRS (2) CHF (congestive heart failure) Code(s): I50.9 - HEART FAILURE, UNSPECIFIED (3) Diabetes Code(s): E11.9 - TYPE 2 DIABETES MELLITUS WITHOUT COMPLICATIONS (4) QT prolongation Code(s): R94.31 - ABNORMAL ELECTROCARDIOGRAM [ECG] [EKG] (5) Respiratory failure Code(s): J96.90 - RESPIRATORY FAILURE, UNSP, UNSP W HYPOXIA OR HYPERCAPNIA Qualifiers: Chronicity: acute Respiratory failure complication: unspecified whether with hypoxia or hypercapnia Qualified Code(s): J96.00 - Acute respiratory failure, unspecified whether with hypoxia or hypercapnia Assessment/Plan ASSESSMENT/PLAN: S/P Acute Respiratory Failure due to APE: etiology unclear Asthma HTN HLD NIDDM GERD CHF CAD History of AMI S/P PCI 2000 (?) COPD CVA with residual Left sided deficit History of hysterectomy R/O PNA Lasix VTE prophylaxis BD TX PFTS OUTPATIENT DR MERLOS
--- NOTE | 2018-08-13 11:41 | PN ---
Progress Note (short form) - Note Progress Note: History of Present Illness: sob "much better" than before. did well with PT walking in [place] today no wheezing no cp no palpitations no syncope no cigs - Current Medication List Current Medications Generic Name Dose Route Start Last Admin Trade Name Gerardo PRN Reason Stop Dose Admin Aspirin 81 mg 08/08/18 10:00 08/11/18 10:12 Asa - PO 81 mg DAILY [facility] Administration Carvedilol 25 mg 08/09/18 12:20 08/13/18 09:56 Coreg - PO 25 mg BID [facility] Administration Furosemide 40 mg 08/09/18 12:30 08/13/18 09:56 Lasix - PO 40 mg DAILY [facility] Administration Heparin Sodium (Porcine) 5,000 unit 08/07/18 22:00 08/11/18 15:16 Heparin - SQ Not Given TID [facility] Insulin Aspart 1 vial 08/07/18 22:00 08/13/18 07:06 Novolog Vial Sliding Scale - SQ 6 units ACHS [facility] Administration Protocol Insulin Detemir 15 units 08/08/18 22:00 08/12/18 23:19 Levemir Vial SQ 15 units HS [facility] Administration Insulin Detemir 22 units 08/09/18 07:00 08/13/18 07:06 Levemir Vial SQ 22 units DAILY@0700 [facility] Administration Lisinopril 20 mg 08/08/18 10:00 08/13/18 09:56 Prinivil PO 20 mg DAILY [facility] Administration Pantoprazole Sodium 40 mg 08/08/18 10:00 08/13/18 09:56 Protonix Iv IVPUSH 40 mg DAILY [facility] Administration Potassium Chloride 40 meq 08/10/18 11:15 08/13/18 09:56 Potassium Chloride Oral Liquid PO 40 meq DAILY [facility] Administration Rosuvastatin Calcium 20 mg 08/07/18 22:00 08/12/18 23:17 Crestor - PO 20 mg HS [facility] Administration - Objective Vital Signs: Vital Signs Period Temp Pulse Resp BP Sys/Jaimes Pulse Ox Last 24 Hr 97.9 F-98.8 F 52-96 18-20 104-126/52-70 97 Constitutional: Yes: No Distress, Calm Eyes: No: Sclera Icterus HENT: No: Nasal Congestion Cardiovascular: Yes: Regular Rate and Rhythm, S1, S2, Other (PMI non diplaced). No: JVD, Gallop, Murmur Respiratory: Yes: CTA Bilaterally. No: Accessory Muscle Use, Rales, Wheezes Gastrointestinal: Yes: Normal Bowel Sounds, Soft. No: Tenderness Extremities: No: Cold Edema: No Integumentary: No: Jaundice Neurological: Yes: Alert, Oriented (x3) Psychiatric: No: Agitated Labs: CBC, BMP 08/13/18 05:30 08/13/18 05:30 Assessment/Plan echo 07/2018 LV function severely reduced EF 20-25%, severe global hypokinesis of LV, nl RV, mild MR, trace TR CXR 08/09 reviewed images: trace L effusion; prior pulm edema pattern resolved, no vascular redistributaiton pattern EKG: sinus nonspecific ST changes, prolonged QTc tele: sr a/p: 57F h/o HTN, HLD, DM, chronic systolic HF, CAD, s/p OK and stent 2000, COPD, CVA p/w acute respiratory failure Acute respiratory failure, acute on chronic syst CHF, h/o mili- CMP: - treated with abx, solumedrol, nebs for possible PNA, COPD exac - infectious work up per primary team, ID consulted - also getting iv lasix for chf, seems to be most likely etiology of resp failure - BNP 1200 (200 baseline prior), congestive changes on CXR, improving on repeat study - intubated initially-->extubated - 08/08: wt down, cr stable, cont iv lasix 40 bid. - 08/09: wt continues to trend down, labs stable. sob much improved, CXR nearly resolved (trace-small L effusion persists). not on lasix at home. would stop IV and change to 40 po daily. -08/10-: cont po lasix 40 qd, coreg 25 bid, lisinopril 20. Hold home aldactone for now, till resting bp reassessed in office next week on higher carvedilol dose plus lasix -d/w'd her cardio dr raya. he agrees with plan to increase carvedilol dose , start standing po lasix, and have pt see him next week. VT: - 8 beat run nonsustained monomorphic VT - likely re-entrant rhythm from scar in patient with known systolic dysfunction - BB, HF optimization as doing - pt warrants primary prevn ICD given EF <30% despite optimal med regimen--per outpt cardio Abnormal EKG,prolonged QTc - avoid QT prolonging agents - replete for K >4.0, Mg >2.0 - QT today down to 480 msec range, ok, - tele no R-on-T torsade/PMVT CAD - h/o OK and stent 2000 - continue aspirin, statin - borderline trops, not c/w acs HTN -stable cardiac solano stable
[2018-08-13] MEDS ORDERED: INSULIN (NOVOLOG) ASPART 100 UNITS/ML 10ML VIAL ONE (12:02)
[2018-08-13] MEDS: ASPIRIN 81 MG CHEWABLE TABLETS PO SCH (12:05)
[2018-08-13] MEDS: HEPARIN NA (PORCINE) 5,000 UNITS/ML 1ML VIAL SQ SCH (15:05)
[2018-08-13 15:13] VITALS: BP 108/48; PULSE 90; TEMP 99.1
== END 2018-08-13 15:49 | DRG 208 ==
LOC: JER 10:42 → JERBED 12:33 → JICU 13:29 → J4W 08-07 16:35
PROVIDERS: ADMIT Family Medicine; ATTEND Family Medicine
PROC: 0CHY7BZ Insertion of Airway into Mouth and Throat, Via Natural or Artificial Opening (ICD-10-PCS; principal; 2018-08-05)
PROC: 5A1945Z Respiratory Ventilation, 24-96 Consecutive Hours (ICD-10-PCS; 2018-08-05)
DX: J96.00 Acute respiratory failure, unspecified whether with hypoxia or hypercapnia (principal); I50.23 Acute on chronic systolic (congestive) heart failure; J18.9 Pneumonia, unspecified organism; I69.354 Hemiplegia and hemiparesis following cerebral infarction affecting left non-dominant side; N39.0 Urinary tract infection, site not specified; I47.2 Ventricular tachycardia; J44.1 Chronic obstructive pulmonary disease with (acute) exacerbation; I25.10 Atherosclerotic heart disease of native coronary artery without angina pectoris; E78.5 Hyperlipidemia, unspecified; J44.9 Chronic obstructive pulmonary disease, unspecified; K21.9 Gastro-esophageal reflux disease without esophagitis; E11.9 Type 2 diabetes mellitus without complications; I25.2 Old myocardial infarction; I11.0 Hypertensive heart disease with heart failure; I45.81 Long QT syndrome; Z95.5 Presence of coronary angioplasty implant and graft
CPT/HCPCS: 36415; 36600; 71045-TC-FY; 80048; 80053; 81003; 81015; 82272; 82375; 82550; 82553; 82803; 82962; 83036; 83050; 83605; 83735; 83880; 84100; 84439; 84443; 84481; 84484; 85025; 85027; 85610; 85730; 87040; 87070; 87086; 87186; 87205; 87804; 87899; 90732; 93005; 93010; 93306-TC; 94640; 94761; 97116-GP; 97161-GP; 99285-25; G0009; G0480; J1644; J7030

== ENCOUNTER 2018-08-17 17:38 | Emergency (ER) | payer MEDICARE, OTHER ==
--- NOTE | 2018-08-17 17:51 | PDOC ---
Rapid Medical Evaluation Chief Complaint: Blood Sugar Problem Time Seen by Provider: 08/17/18 17:47 Medical Evaluation: Allergies Allergy/AdvReac Type Severity Reaction Status Date / Time No Known Allergies Allergy Verified 08/05/18 11:06 08/17/18 17:49 I have performed a brief in person evaluation. The patient presents with a CC of : Hyperglycemia HPI: Pt is a 57 YO female who was discharged thursday and she hasn't had insulin since Thursday. PE: Skin: Clear Lungs: Clear Heart: RRR Abd: no pain upon palpation MS: Moves all extremities without difficulty Neuro: Alert Psych: Appropriate affect I have ordered the following: basic labs The patient will proceed to the ED for further evaluation. Discharge Disposition - Diagnosis Hyperglycemia - Referrals Referrals: Erin Richard [Primary Care Provider] - - Patient Instructions - Post Discharge Activity
[2018-08-17 17:53] VITALS: BP 124/73; PULSE 89; TEMP 98.6; BMI 28.6
[2018-08-17 18:16] LABS: BASO % 0.9 % (0-2.0); EOS % 1.3 % (0-4.5); HEMATOCRIT 35.1 % (32.4-45.2); HEMOGLOBIN 11.5 GM/dL (10.7-15.3); MCH 26.5 pg (25.7-33.7); MCHC 32.9 g/dl (32.0-36.0); MEAN CELL VOLUME 80.8 fl (80-96); MEAN PLT VOLUME 9.5 fl (7.5-11.1); MONO % 6.6 % (3.8-10.2); NEUT % 62.2 % (42.8-82.8); PLATELET COUNT 278 K/MM3 (134-434); RBC 4.35 M/mm3 (3.60-5.2); RDW 15.7 % (11.6-15.6); WHITE BLOOD COUNT 12.7 K/mm3 (4.0-10.0)
[2018-08-17 18:19] LABS: VENOUS PC02 40.3 mmHg (38-52); VENOUS PH 7.41 (7.32-7.42); VENOUS PO2 48.5 mmHg (28-48)
[2018-08-17 18:43] LABS: ANION GAP 8 MMOL/L (8-16); BLOOD UREA NITROGEN 14 mg/dL (7-18); CALCIUM 9.7 mg/dL (8.5-10.1); CHLORIDE 99 mmol/L (98-107); CO2 27 mmol/L (21-32); GLUCOSE,RANDOM 218 mg/dL (74-106); POTASSIUM 5.1 mmol/L (3.5-5.1); SODIUM 134 mmol/L (136-145)
--- NOTE | 2018-08-17 19:47 | PDOC ---
History of Present Illness - General Chief Complaint: Blood Sugar Problem Stated Complaint: Sugar 225 Time Seen by Provider: 08/17/18 17:47 History Source: Patient Exam Limitations: No Limitations - History of Present Illness Initial Comments: 08/17/18 21:51 Pt is a 57 y/o F with PMH of IDDM, HTN, HLD, CHF, CAD s/p stenting, COPD, CVA, who presents to the ED for complaints of hyperglycemia. Pt states that she was discharged from the hospital on 08/16/18 and she was not given a prescription for her insulin. Pt states since discharge she has not had any insulin. She states she took her blood sugar at home and it was 225. She admits to nausea. Denies fevers, chills, vomiting, light headedness, dizziness, diarrhea. Pt states she is being treated for a UTI at this time. Past History - Travel Traveled outside of the country in the last 30 days: No Close contact w/someone who was outside of country & ill: No - Past Medical History Allergies/Adverse Reactions: Allergies Allergy/AdvReac Type Severity Reaction Status Date / Time No Known Allergies Allergy Verified 08/17/18 17:48 Home Medications: Ambulatory Orders Aspirin [ASA -] 81 mg PO DAILY 03/14/14 Lisinopril [Prinivil -] 20 mg PO DAILY 10/13/14 Rosuvastatin Calcium [Crestor] 20 mg PO HS 10/13/14 Albuterol Sulfate Inhaler - [Ventolin HFA Inhaler -] 1 - 2 inh IH Q4H PRN Salmeterol/Fluticasone [Advair 500Mcg/50Mcg -] 1 puff IH DAILY 04/21/17 Ammonium Lactate Cream [Lac-Hydrin 12% Cream -] 1 applic TP BID 08/05/18 Albuterol 2.5/Ipratropium 0.5 [Duoneb -] 1 amp NEB RQID #120 amp 08/10/18 Carvedilol [Coreg -] 25 mg PO BID #60 tablet 08/10/18 Cephalexin Monohydrate [Keflex -] 500 mg PO BID #10 capsule 08/10/18 Furosemide [Lasix -] 40 mg PO DAILY #30 tablet 08/10/18 Insulin (Levemir) [Levemir Vial] 15 units SQ HS units 08/10/18 Insulin (Levemir) [Levemir Vial] 22 units SQ DAILY@0700 units 08/10/18 Nebulizer Accessories [A.i.r.s. Nebulizer] 1 each QID #1 kit 08/10/18 Potassium Chloride [K-Dur -] 40 meq PO DAILY #60 tablet.er 08/10/18 Potassium Chloride [Potassium Chloride Oral Liquid] 40 meq PO DAILY #60 cup Insulin Detemir [Levemir Flextouch] 15 unit SQ HS #1 insuln.pen 08/17/18 Insulin Detemir [Levemir Flextouch] 22 unit SQ DAILY #1 insuln.pen 08/17/18 Anemia: No Asthma: Yes Cancer: No Cardiac Disorders: Yes ([place], CAD, stent) CVA: Yes (1999 L hemiparesis) COPD: Yes CHF: Yes (1999) Dementia: No Diabetes: Yes (NIDDM/2011) GI Disorders: Yes (GERD) Disorders: No HTN: Yes Hypercholesterolemia: Yes Liver Disease: No Seizures: No Thyroid Disease: No - Surgical History Abdominal Surgery: No Appendectomy: No Cardiac Surgery: Yes (CATH W/ STENTS) Cholecystectomy: No Lung Surgery: No Neurologic Surgery: No Orthopedic Surgery: No - Immunization History Immunization Up to Date: Yes - Suicide/Smoking/Psychosocial Hx Smoking History: Never smoked Have you smoked in the past 12 months: No Hx Alcohol Use: No Drug/Substance Use Hx: No Substance Use Type: None Hx Substance Use Treatment: No Review of Systems - Review of Systems Able to Perform ROS?: Yes Comments:: 08/17/18 21:54 CONSTITUTIONAL: Absent: fever, chills, diaphoresis, generalized weakness, malaise, loss of appetite HEENT: Absent: rhinorrhea, nasal congestion, throat pain, throat swelling, difficulty swallowing, mouth swelling, ear pain, eye pain, visual Changes CARDIOVASCULAR: Absent: chest pain, loss of consciousness, palpitations, irregular heart rate, peripheral edema RESPIRATORY: Absent: cough, shortness of breath, dyspnea with exertion, orthopnea, wheezing, stridor, hemoptysis GASTROINTESTINAL: Present: nausea Absent: abdominal pain, abdominal distension, nausea, vomiting, diarrhea, constipation, melena, hematochezia GENITOURINARY: Absent: dysuria, frequency, urgency, hesitancy, hematuria, flank pain, genital pain MUSCULOSKELETAL: Absent: myalgia, arthralgia, joint swelling SKIN: Absent: rash, itching, pallor HEMATOLOGIC/IMMUNOLOGIC: Absent: easy bleeding, easy bruising, lymphadenopathy, frequent infections ENDOCRINE: Present: elevated blood sugar Absent: unexplained weight gain, unexplained weight loss, heat intolerance, cold intolerance NEUROLOGIC: Absent: headache, focal weakness or paresthesias, dizziness, unsteady gait, seizure, mental status changes, bladder or bowel incontinence PSYCHIATRIC: Absent: anxiety, depression, suicidal or homicidal ideation, hallucinations. Is the patient limited Bulgarian proficient: No *Physical Exam - Vital Signs Last Vital Signs Temp Pulse Resp BP Pulse Ox 98.6 F 89 20 124/73 97 08/17/18 17:48 08/17/18 17:48 08/17/18 17:48 08/17/18 17:48 08/17/18 17:48 - Physical Exam Comments: 08/17/18 21:55 GENERAL: Well developed, well nourished. Awake and alert. No acute distress. HEENT: Normocephalic, atraumatic. PERRLA, EOMI. No conjunctival pallor. Sclera are non- icteric. Moist mucous membranes. Oropharynx is clear. NECK: Supple. Full ROM. No JVD. Carotid pulses 2+ and symmetric, without bruits. No thyromegaly. No lymphadenopathy. CARDIOVASCULAR: Regular rate and rhythm. No murmurs, rubs, or gallops. Distal pulses are 2+ and symmetric. PULMONARY: No evidence of respiratory distress. Lungs clear to auscultation bilaterally. No wheezing, rales or rhonchi. ABDOMINAL: Soft. Non-tender. Non-distended. No rebound or guarding. No organomegaly. Normoactive bowel sounds. MUSCULOSKELETAL Normal range of motion at all joints. No bony deformities or tenderness. No CVA tenderness. EXTREMITIES: No cyanosis. No clubbing. No edema. No calf tenderness. SKIN: Warm and dry. Normal capillary refill. No rashes. No jaundice. NEUROLOGICAL: Alert, awake, appropriate. Cranial nerves 2-12 intact. No deficits to light touch and temperature in face, upper extremities and lower extremities. No motor deficits in the in face, upper extremities and lower extremities. Normoreflexic in the upper and lower extremities. Normal speech. Toes are down- going bilaterally. Gait is normal without ataxia. PSYCHIATRIC: Cooperative. Good eye contact. Appropriate mood and affect. ED Treatment Course - LABORATORY CBC & Chemistry Diagram: 08/17/18 18:10 08/17/18 18:10 - ADDITIONAL ORDERS Additional order review: Laboratory Results 08/17/18 08/17/18 08/17/18 18:10 18:10 18:10 VBG pH 7.41 POC VBG pCO2 40.3 POC VBG pO2 48.5 H Mixed VBG HCO3 25.2 H Sodium 134 L Potassium 5.1 Chloride 99 Carbon Dioxide 27 Anion Gap 8 BUN 14 Creatinine 1.0 Creat Clearance w eGFR 57.15 Random Glucose 218 H Calcium 9.7 Acetone, Qual Negative L 08/17/18 18:10 RBC 4.35 MCV 80.8 MCHC 32.9 RDW 15.7 H MPV 9.5 Neutrophils % 62.2 Lymphocytes % 29.0 Monocytes % 6.6 Eosinophils % 1.3 Basophils % 0.9 Medical Decision Making - Medical Decision Making 08/18/18 02:55 Patient is a 57-year-old female with multiple medical comorbidities, who presents to emergency department today for hyperglycemia. Labs obtain from [facility] show a blood sugar of 218. Acetone negative. No anion gap at this time. Not concerned for DKA. Patient discharged with Levemir. Patient states that she has not received it. 500 mL of fluid given in the ER at a rate of 100 mL per hour given PMH of CHF. WBC count of 12, no shift. Possibly due to her urine. Urine shows possible infection however patient is being treated with Keflex at this time. Patient reports feeling better after 500 mL of fluid. Patient given her dose of Levemir in the emergency department for the evening. Reconcile medication from her last discharge from the hospital on 08/16/18. Resend prescriptions for her morning and evening dose of Levemir. Discharge home Patient follow up with her primary care doctor this week. I discussed the physical exam findings, ancillary test results and final diagnoses with the patient. I answered all of the patient's questions. The patient was satisfied with the care received and felt comfortable with the discharge plan and treatment plan. The Patient agrees to follow up with the primary care physician/specialist within 24-72 hours. Return precautions were given. *DC/Admit/Observation/Transfer Diagnosis at time of Disposition: Hyperglycemia - Discharge Dispostion Disposition: HOME Condition at time of disposition: Stable Decision to Admit order: No - Prescriptions Prescriptions: Insulin Detemir [Levemir Flextouch] 22 unit SQ DAILY #1 insuln.pen Insulin Detemir [Levemir Flextouch] 15 unit SQ HS #1 insuln.pen - Referrals Referrals: Erin Richard [Primary Care Provider] - - Patient Instructions Printed Discharge Instructions: DI for Hyperglycemia -- Adult Additional Instructions: Your insulin (levemir) was refilled today; your blood sugar in the ED was 200. You were given your night dose of levemir in the ED tonight Take the medication as prescribed Follow up with your primary care doctor tomorrow Continue all other home medications as previously prescribed Return to the ED for any new or worsening symptoms - Post Discharge Activity
[2018-08-17] MEDS ORDERED: SODIUM CHLORIDE 500 ML IV SCH (20:15)
--- NOTE | 2018-08-17 20:16 | PDOC ---
*Physical Exam - Vital Signs Last Vital Signs Temp Pulse Resp BP Pulse Ox 98.6 F 89 20 124/73 97 08/17/18 17:48 08/17/18 17:48 08/17/18 17:48 08/17/18 17:48 08/17/18 17:48 ED Treatment Course - LABORATORY CBC & Chemistry Diagram: 08/17/18 18:10 08/17/18 18:10 - ADDITIONAL ORDERS Additional order review: Laboratory Results 08/17/18 08/17/18 08/17/18 18:10 18:10 18:10 VBG pH 7.41 POC VBG pCO2 40.3 POC VBG pO2 48.5 H Mixed VBG HCO3 25.2 H Sodium 134 L Potassium 5.1 Chloride 99 Carbon Dioxide 27 Anion Gap 8 BUN 14 Creatinine 1.0 Creat Clearance w eGFR 57.15 Random Glucose 218 H Calcium 9.7 Acetone, Qual Negative L 08/17/18 18:10 RBC 4.35 MCV 80.8 MCHC 32.9 RDW 15.7 H MPV 9.5 Neutrophils % 62.2 Lymphocytes % 29.0 Monocytes % 6.6 Eosinophils % 1.3 Basophils % 0.9 Medical Decision Making - Medical Decision Making 08/17/18 20:16 Pt seen by the Advanced Practice Provider under my direct supervision Pt interviewed and examined Ancillary studies reviewed I agree with plan as outlined by the Advanced Practice Provider HAI Leary *DC/Admit/Observation/Transfer Diagnosis at time of Disposition: Hyperglycemia - Referrals Referrals: Erin Richard [Primary Care Provider] - - Patient Instructions - Post Discharge Activity
[2018-08-17 20:46] LABS: URINE APPEARANCE SLCLOUDY; URINE BILIRUBIN NEGATIVE (<2.0 mg/dL); URINE COLOR LTYELLOW; URINE GLUCOSE (UA) NEGATIVE (NEGATIVE); URINE KETONE NEGATIVE (NEGATIVE); URINE LEUK ESTERASE 1+ (NEGATIVE); URINE NITRITE NEGATIVE (NEGATIVE); URINE PROTEIN NEGATIVE (NEGATIVE); URINE UROBILINOGEN NEGATIVE mg/dL (0.2-1.0)
[2018-08-17 20:48] LABS: EPI CELLS FEW /HPF (FEW); URINE HYALINE CAST 25 /lpf; URINE MUCUS RARE
[2018-08-17] MEDS ORDERED: INSULIN (LEVEMIR) 100 UNITS/ML UNITS SQ ONE ×2 (23:26→23:41)
== END 2018-08-17 23:00 | disposition home or self-care (01) ==
LOC: JER 17:38
PROC: 3E0337Z Introduction of Electrolytic and Water Balance Substance into Peripheral Vein, Percutaneous Approach (ICD-10-PCS; principal; 2018-08-17)
PROC: 3E013VG Introduction of Insulin into Subcutaneous Tissue, Percutaneous Approach (ICD-10-PCS; 2018-08-17)
DX: E11.65 Type 2 diabetes mellitus with hyperglycemia (principal); Z79.4 Long term (current) use of insulin; I25.10 Atherosclerotic heart disease of native coronary artery without angina pectoris; I11.0 Hypertensive heart disease with heart failure; Z95.5 Presence of coronary angioplasty implant and graft; I25.2 Old myocardial infarction; E78.00 Pure hypercholesterolemia, unspecified; J44.9 Chronic obstructive pulmonary disease, unspecified; J45.909 Unspecified asthma, uncomplicated; K21.9 Gastro-esophageal reflux disease without esophagitis; I69.854 Hemiplegia and hemiparesis following other cerebrovascular disease affecting left non-dominant side; Z91.14 Patient's other noncompliance with medication regimen
CPT/HCPCS: 36415; 71046-TC-FY; 80048; 81003; 81015; 82009; 82803; 85025; 87086; 96360; 96361; 96372; 99282-25; J7030

== ENCOUNTER 2020-10-15 12:47 | Emergency (ER) | payer MEDICARE, OTHER ==
[2020-10-15 13:10] VITALS: BP 140/56; PULSE 87; TEMP 98.3; BMI 29.2
== END 2020-10-15 15:17 | disposition home or self-care (01) ==
LOC: JER 12:47
DX: J06.9 Acute upper respiratory infection, unspecified (principal); Z11.52 Encounter for screening for COVID-19
CPT/HCPCS: 71046-TC-FY; 87426; 99284-25

== ENCOUNTER 2023-10-16 11:54 | Emergency (ER) | payer MEDICARE, OTHER ==
[2023-10-16 12:10] VITALS: BMI 30.3
[2023-10-16] MEDS ORDERED: ACETAMINOPHEN 1000 MG/100 ML BAG IVPB ONE (12:45)
[2023-10-16] MEDS ORDERED: ACETAMINOPHEN INJECTION 100 ML IVPB ONE (13:55)
[2023-10-16 14:20] LABS: BASO % 0.9 % (0-2.0); EOS % 2.2 % (0-4.5); HEMATOCRIT 39.2 % (32.4-45.2); HEMOGLOBIN 12.5 GM/dL (10.7-15.3); LYMPH % 39.1 % (8-40); MCH 27.1 pg (25.7-33.7); MCHC 31.8 g/dl (32.0-36.0); MEAN CELL VOLUME 85.2 fl (80-96); MEAN PLT VOLUME 9.4 fl (7.5-11.1); MONO % 8.5 % (3.8-10.2); NEUT % 49.3 % (42.8-82.8); PLATELET COUNT 216 10^3/uL (134-434); RDW 14.2 % (11.6-15.6); WHITE BLOOD COUNT 9.4 K/mm3 (4.0-10.0)
[2023-10-16 14:33] LABS: INR 1.03 (0.83-1.09)
[2023-10-16 14:35] LABS: ACTIVATED PTT 31.3 SECONDS (25.2-36.5)
[2023-10-16 14:48] LABS: CHLORIDE 105 mmol/L (98-107); SODIUM 136 mmol/L (136-145)
[2023-10-16 14:49] LABS: CALCIUM 9.3 mg/dL (8.5-10.1)
[2023-10-16 14:50] LABS: ALBUMIN 3.6 g/dl (3.4-5.0); BLOOD UREA NITROGEN 17.2 mg/dL (7-18); CO2 27 mmol/L (21-32)
[2023-10-16 14:52] LABS: GLUCOSE,RANDOM 115 mg/dL (74-106)
[2023-10-16 14:53] LABS: CREATININE 1.1 mg/dL (0.55-1.3); SGOT/AST 46 U/L (15-37)
[2023-10-16 14:55] LABS: BILIRUBIN,TOTAL 0.6 mg/dL (0.2-1); TOT PROT 8.1 g/dl (6.4-8.2)
[2023-10-16 14:56] LABS: ALK PHOS 91 U/L (45-117)
[2023-10-16 14:58] LABS: ANION GAP 4 mmol/L (4-13); N-TERMINAL BNP 27.6 pg/ml (5-125); POTASSIUM 6.3 mmol/L (3.5-5.1); SGPT/ALT 31 U/L (13-61)
[2023-10-16] MEDS ORDERED: morphine CARPU-JECT 4 MG/1 ML DISP.SYRIN IVPUSH ONE (15:24)
[2023-10-16] MEDS ORDERED: METHOCARBAMOL 500 MG TABLET PO ONE (15:30)
[2023-10-16] MEDS ORDERED: CEFTRIAXONE 1,000 MG in DEXTROSE 5%-WATER - 50 ML IVPB ONE (15:42)
[2023-10-16] MEDS ORDERED: morphine SULFATE 4 MG/ML VIAL ONE (16:17)
[2023-10-16] MEDS ORDERED: METHOCARBAMOL 500 MG TABLET ONE (16:17)
[2023-10-16 16:57] LABS: POTASSIUM 3.9 mmol/L (3.5-5.1)
[2023-10-16 16:58] LABS: BLOOD UREA NITROGEN 18.2 mg/dL (7-18)
[2023-10-16 17:02] LABS: CREATININE 1.1 mg/dL (0.55-1.3)
[2023-10-16] MEDS ORDERED: MECLIZINE HCL 25 MG TABLET (FP) PO ONE (20:23)
[2023-10-16] MEDS ORDERED: MECLIZINE HCL 25 MG TABLET (FP) ONE (20:26)
[2023-10-16 22:52] VITALS: BP 96/64; PULSE 85; RESP 16; TEMP 98.8
== END 2023-10-16 23:50 | disposition home or self-care (01) ==
LOC: JER 11:54 → JERFT 11:54 → JER 23:50
PROC: 3E033NZ Introduction of Analgesics, Hypnotics, Sedatives into Peripheral Vein, Percutaneous Approach (ICD-10-PCS; principal; 2023-10-16)
PROC: 3E033GC Introduction of Other Therapeutic Substance into Peripheral Vein, Percutaneous Approach (ICD-10-PCS; 2023-10-16)
DX: M79.10 Myalgia, unspecified site (principal); R07.9 Chest pain, unspecified; R07.2 Precordial pain; M54.2 Cervicalgia; M54.9 Dorsalgia, unspecified; M79.605 Pain in left leg; M79.604 Pain in right leg; M79.601 Pain in right arm; M79.602 Pain in left arm; R00.2 Palpitations; R05.9 Cough, unspecified; R51.9 Headache, unspecified; R42 Dizziness and giddiness; Z20.822 Contact with and (suspected) exposure to COVID-19
CPT/HCPCS: 0241U-QW; 36415; 70450-TC; 70498-TC; 71046-TC-FY; 71275-TC; 80048; 80053; 83880; 84484; 85025; 85610; 85730; 93005; 93010; 96374; 96375; 99285-25; Q9967